=== PATIENT | male | born 1950 | race Caucasian/White ===

== ENCOUNTER 2023-11-26 15:15 | Outpatient (AMB) | payer MEDICARE, SELFPAY ==
--- NOTE | 2023-11-26 15:17 | A.OFFVIS_ITS ---
Intake Visit Reasons: Urinary retention Intake Note: New Patient presents for initial visit for neurogenic bladder and recent hospitalization for urosepsis Urology Medications: tamsulosin, VESIcare, Myrbetriq, and oxybutynin Blood Thinner: aspirin Continuous Improvement Specialist Required: No Accompanied by: Self / Same As Patient Allergies lactose Allergy (Unknown, Verified 11/26/23 16:25) Unknown Ciprofloxacin HCl Allergy (Unknown, Uncoded 11/26/23 16:25) Unknown Medication List - Last Reconciled 11/26/23 by SIMON Mcfarland ascorbic acid (vitamin C) 250 mg PO DAILY aspirin 81 mg PO DAILY atorvastatin 40 mg PO DAILY bupropion HCl XL 300 mg PO DAILY cholecalciferol (vitamin D3) 50 mcg PO DAILY cyanocobalamin (vitamin B-12) 1,000 mcg PO DAILY duloxetine 60 mg PO DAILY finasteride 5 mg PO DAILY 30 days gabapentin mg PO isosorbide mononitrate ER 30 mg PO DAILY loperamide 2 mg PO BID PRN lorazepam 1 mg PO BID magnesium oxide 400 mg PO DAILY omeprazole 20 mg PO DAILY sodium bicarbonate 650 mg PO BID terazosin 5 mg PO BEDTIME 30 days trazodone 200 mg PO BEDTIME HPI Comments Details: Juan Calhoun is a 73-year-old male patient of Dr. Franz. He has a PMH of anxiety, depression, nephrolithiasis, neurogenic bladder, obstructive sleep apnea, TBI, ulcerative colitis, bowel resection status post ileostomy. He presents to the office today as a new patient for urinary retention. In discussion with the patient today he reports having seeked emergency room care at [facility] some time last week however is unsure as to why he went to the emergency room. In assessment of the patient today indwelling Garnica catheter is noted. He does provide discharge paperwork from [facility] that recommends Urology follow-up. In review of patient's chart it appears referral was placed through nephrology as patient has a longstanding history of chronic kidney disease as well as a history of self catheterization many years ago however has since stopped. He is unsure as to why he stopped CIC. He is unsure as to where he followed up previously with Urology. Discussed attempting voiding trial with nursing in 3 weeks. Discussed further workup in the near future with retroperitoneal ultrasound as well as potential in office cystoscopy. Patient presents to the office today with multiple different medication lists. Discussed stopping VESIcare, Myrbetriq, oxybutynin, and Flomax. Discussed starting terazosin 5 mg at bedtime. Education provided on catheter cap. Review of Systems Const Reports as per [facility] Eyes Reports no additional complaints ENT Reports no additional complaints Card Reports as per [facility] Resp Reports no additional complaints GI Reports as per [facility] Reports as per [facility] Musc Reports no additional complaints Neuro Reports as per [facility] Psych Reports as per [facility] Endo Reports no additional complaints Physical Exam Const General: cooperative, comfortable, no acute distress, well developed, alert and awake Nutritional Appearance: overweight Orientation/consciousness: oriented to person Limitations: no limitations HEENT Head: Yes normal to inspection, Yes normocephalic and Yes atraumatic Ears: hearing grossly normal bilaterally Eyes General: appearance normal, both eyes and all related structures Neck Neck: Yes normal visual inspection and Yes trachea midline Chest Chest palpation & inspection: normal inspection of the chest Resp Effort & Inspection: normal respiratory effort and able to speak in complete sentences Cardio Rate: regular rate GI Inspection: Yes normal to inspection General: Yes no CVA tenderness Back/Spine/Pelvis Back: no CVA tenderness Skin General skin exam: no rashes or lesions noted Neuro General: oriented to person Extrem General: Yes normal to inspection Psych Appearance: grossly normal and disheveled Speech and movement: Normal speech and movement present and Clear speech present Affect: normal affect Attitude: cooperative Thought content: Normal thought content present Insight: Poor insight present (Psych) Judgement: Poor judgement present (Psych) Assessment & Plan Assessment & Plan (1) Urinary retention: Code(s): R33.9 - Retention of urine, unspecified Category: Medical (2) Incomplete bladder emptying: Code(s): R33.9 - Retention of urine, unspecified Category: Medical Plan Discussed at length potential causes of incomplete bladder emptying/urinary retention. Stop all urological medications as discussed and as noted above. Start terazosin 5 mg at bedtime. Start finasteride 5 mg as discussed and prescribed Follow-up with nursing in 3 weeks for in office voiding trial. Discussed possible near future in office cystoscopy for further assessment evaluation. Discussed obtaining retroperitoneal ultrasound if voiding trial is successful. Education regarding catheter care was provided as well as education regarding use of catheter cap. Follow-up in office in 3 weeks for voiding trial; or sooner with any issues, concerns, and or questions. Will await voiding trial results and further assess plan of care. Medications: New finasteride 5 mg PO DAILY 30 days 30 tabs 3RF N40.1 - Benign prostatic hyperplasia with lower urinary tract symptoms, R33.9 - Retention of urine, unspecified terazosin 5 mg PO BEDTIME 30 days 30 caps 2RF N40.1 - Benign prostatic hyperplasia with lower urinary tract symptoms, R35.0 - Frequency of micturition Patient Instructions: The patient had an opportunity to ask questions regarding the treatment plan. All questions were answered. Physical exam, labs, and imaging were discussed and reviewed in detail. As well as risks, benefits, and discussion of treatment choices. No major barriers to understanding were identified. The patient expressed understanding and agreement with the above treatment plan. The patient was made aware they should contact our office by phone for worsening of their current condition, the appearance of new symptoms, or with any questions or concerns. Compliance is encouraged with any medications and follow up testing that is ordered. It is a privilege to be allowed the opportunity to participate in? your urological care.? Again, if you have any questions or concerns If you have any questions or concerns please do not hesitate to contact me. The office is [phone]. This note is constructed using voice recognition software. While every effort has been made to ensure accuracy training consultant errors may have been included. Yours sincerely, SIMON Mcfarland Coding Level of Care Code New Pt Level 4 (09483) Diagnoses Urinary retention R33.9 Incomplete bladder emptying R33.9
== END 2023-11-26 16:25 | disposition home or self-care (01) ==
PROVIDERS: PCP Family Medicine; Visit Provider Nurse Practitioner Family
DX: R33.9 Retention of urine, unspecified (principal)
CPT/HCPCS: 99204

== ENCOUNTER → 2023-11-26 15:15 | Outpatient (BNVA) | payer MEDICARE, SELFPAY | PROVIDERS: PCP Family Medicine; Visit Provider Nurse Practitioner Family | DX: N40.1 Benign prostatic hyperplasia with lower urinary tract symptoms (principal); R33.8 Other retention of urine; R35.0 Frequency of micturition | CPT/HCPCS: 99202 ==

== ENCOUNTER → 2023-12-29 09:43 | Outpatient (BNVA) | payer MEDICARE, SELFPAY | PROVIDERS: PCP Family Medicine; Visit Provider Nurse Practitioner Family | DX: R33.9 Retention of urine, unspecified (principal) | CPT/HCPCS: 51700 ==

== ENCOUNTER → 2024-01-21 13:44 | Outpatient (BNVA) | payer MEDICARE, SELFPAY | PROVIDERS: PCP Family Medicine; Visit Provider Urology | DX: R33.9 Retention of urine, unspecified (principal) | CPT/HCPCS: 51798 ==

== ENCOUNTER 2024-02-15 10:46 | Outpatient (AMB) | payer MEDICARE, SELFPAY ==
--- NOTE | 2024-02-15 11:26 | AM.OFFVISNUR ---
Intake Visit Reasons: cysto(Failed VT/retention) Allergies lactose Allergy (Unknown, Verified 11/26/23 16:25) Unknown Ciprofloxacin HCl Allergy (Unknown, Uncoded 11/26/23 16:25) Unknown Office Procedures Cystoscopy Consent Discussed risk and benefit or proposed procedure with the patient. Information consent for procedure given to the patient. Discussed technical aspects, risks, benefits and alternatives in full. Addressed all of the patient's questions and concerns regarding the procedure. The patient demonstrated knowledge and understanding. They wish to proceed with this procedure. Preparation The patient was prepped in the usual manner. A authorization representative was present and in the room. Genitalia was prepped with betadine solution in a sterile manner. Lidocaine Jelly 2% was placed into the urethra and 16Fr flexible Olympus cystoscope was inserted into the meatus after adequate lubrication. [id number] DISPOSABLE SCOPE URO-G FLEXIBLE SCOPE Procedure code (CPT) selection complete Office Meds lidocaine HCl 2 % mucosal jelly in applicator Performing Provider: Fidel Starr MD Performing Location: [facility] Administered by: Loki Bedoya LPN on 02/15/24 11:26 Dose Route Admin Location Dispensed Lot Number Expiration Date [facility] [employer] 10 mL intra-urethral 10 mL nitrofurantoin monohydrate/macrocrystals 100 mg capsule Performing Provider: Fidel Starr MD Performing Location: [facility] Administered by: Loki Bedoya LPN on 02/15/24 11:26 Dose Route Admin Location Dispensed Lot Number Expiration Date [place] Lead Miner [employer]asting 100 mg PO 1 cap naproxen 500 mg tablet Performing Provider: Fidel Starr MD Performing Location: [facility] Administered by: Loki Bedoya LPN on 02/15/24 11:26 Dose Route Admin Location Dispensed Lot Number Expiration Date [facility] Lead [employer] 500 mg PO 1 tab Assessment & Plan Assessment & Plan Orders: Orders AMB Cystoscopy Today R33.9 - Retention of urine, unspecified Medications: New lidocaine HCl 2% 10 mL intra-urethral ONCE 10 mL 0RF R33.9 - Retention of urine, unspecified nitrofurantoin monohyd/m-cryst 100 mg 100 mg PO ONCE 1 cap 0RF R33.9 - Retention of urine, unspecified naproxen 500 mg PO ONCE 1 tab 0RF R33.9 - Retention of urine, unspecified
--- NOTE | 2024-02-15 11:47 | MHC.OFFVIS ---
Intake Visit Reasons: cysto(Failed VT/retention) Allergies lactose Allergy (Unknown, Verified 11/26/23 16:25) Unknown Ciprofloxacin HCl Allergy (Unknown, Uncoded 11/26/23 16:25) Unknown HPI Comments Details: Lj is a pleasant male. He is a patient of Dr. Leonard. He seen for the following urologic conditions - urinary retention Had required catheter for urinary retention [facility] History of prior self catheterization Catheter has been removed at home Has been on terazosin Here for cystoscopy today Open bladder neck 4 month follow-up Remain off anticholinergics Review of Systems Const Denies chills and Denies fever(s) Card Reports no additional complaints and Denies syncope Resp Denies cough GI Denies abdominal pain and Denies heartburn Reports as per HPI and Denies change in libido Neuro Denies syncope Psych Denies change in libido Endo Denies change in libido Physical Exam Const General: cooperative, healthy appearing, comfortable and no acute distress Orientation/consciousness: patient oriented x3 HEENT Face and sinus: Yes normal facial exam Mouth: moist mucous membranes Neck Neck: Yes normal visual inspection, Yes full ROM and Yes trachea midline Chest Chest palpation & inspection: normal inspection of the chest Resp Effort & Inspection: normal respiratory effort, able to speak in complete sentences and no respiratory distress GI Inspection: Yes normal to inspection Back/Spine/Pelvis Cervical Spine: normal cervical lordosis Thoracic/Lumbar Spine: thoracic and lumbar spine normal to inspection Skin General skin exam: no rashes or lesions noted Neuro General: patient oriented x3, gait normal, tone normal and moves all extremities Extrem General: Yes normal to inspection and Yes capillary refill normal Office Procedures Cystoscopy Consent Discussed risk and benefit or proposed procedure with the patient. Information consent for procedure given to the patient. Discussed technical aspects, risks, benefits and alternatives in full. Addressed all of the patient's questions and concerns regarding the procedure. The patient demonstrated knowledge and understanding. They wish to proceed with this procedure. Preparation The patient was prepped in the usual manner. A top stop attacher was present and in the room. Genitalia was prepped with betadine solution in a sterile manner. Lidocaine Jelly 2% was placed into the urethra and 16Fr flexible Olympus cystoscope was inserted into the meatus after adequate lubrication. Procedure Cystoscopy performed using a disposable Urovue digital 16 [place] cystoscope. Meatus circumcised Urethra anterior and posterior urethra normal Prostatic Urethra open bladder neck Bladder examination with retroflexion of cystoscope Bladder Orifices normal shape and position Bladder Capacity median Trabeculations - Cellule Formation - Diverticulum Formation - Mucosal Erythema - Bladder Tumor - [id number] DISPOSABLE SCOPE URO-G FLEXIBLE SCOPE Procedure code (CPT) selection complete Office Meds lidocaine HCl 2 % mucosal jelly in applicator Performing Provider: Fidel Starr MD Performing Location: [facility] Administered by: Loki Bedoya LPN on 02/15/24 11:26 Dose Route Admin Location Dispensed Lot Number Expiration Date NDC Ad Operations Specialist 10 mL intra-urethral 10 mL nitrofurantoin monohydrate/macrocrystals 100 mg capsule Performing Provider: Fidel Starr MD Performing Location: [facility] Administered by: Loki Bedoya LPN on 02/15/24 11:26 Dose Route Admin Location Dispensed Lot Number Expiration Date ND Ad Operations Specialist 100 mg PO 1 cap naproxen 500 mg tablet Performing Provider: Fidel Starr MD Performing Location: [facility] Administered by: Loki Bedoya LPN on 02/15/24 11:26 Dose Route Admin Location Dispensed Lot Number Expiration Date ND Ad Operations Specialist 500 mg PO 1 tab Assessment & Plan Assessment & Plan (1) Incomplete bladder emptying: Code(s): R33.9 - Retention of urine, unspecified Category: Medical (2) Urinary retention: Code(s): R33.9 - Retention of urine, unspecified Category: Medical Plan Four month follow-up nurse-practitioner Orders: Orders AMB Cystoscopy 02/15/24 R33.9 - Retention of urine, unspecified Medications: New ascorbic acid (vitamin C) 1 g PO DAILY 90 tabs 1RF 90 days R33.9 - Retention of urine, unspecified, N39.0 - Urinary tract infection, site not specified methenamine hippurate 1 g PO DAILY 90 tabs 1RF 90 days R33.9 - Retention of urine, unspecified, N39.0 - Urinary tract infection, site not specified Patient Instructions: Imaging studies, laboratory and physical exam results were discussed and reviewed in detail. No major barriers to patient understanding were identified. An opportunity to ask questions regarding the treatment plan was provided. All questions were answered. The patient expressed understanding and agreement with the above treatment plan. The patient is aware they should contact our office by phone for worsening of their current condition or the appearance of new urologic symptoms. Compliance is encouraged with any medications and followup testing that is ordered. It is a privilege to participate in the urologic care of your patient. If you have any questions or concerns regarding treatment for the above conditions, or other urologic issues, please do not hesitate to contact me. The office telephone contact is [phone]. This note is constructed using voice recognition software. While every effort has been made to ensure accuracy electrical discharge machine operator errors may have been included. Yours sincerely, Dr Fidel Starr MD, [facility] - Urology Providers of Expert, Compassionate Care for the Genitourinary System Coding Level of Care Code Est Pt Level 3 (48940) Diagnoses Incomplete bladder emptying R33.9 Urinary retention R33.9 CPT Codes Cystoscopy - CPT: 78430-[id number] ([id number])
== END 2024-02-15 12:01 | disposition home or self-care (01) ==
LOC: HO.HUSH 10:46
PROVIDERS: PCP Family Medicine; Visit Provider Urology
DX: R33.9 Retention of urine, unspecified (principal)
CPT/HCPCS: 52000; 99213

== ENCOUNTER → 2024-02-15 10:46 | Outpatient (BNVA) | payer MEDICARE, SELFPAY | PROVIDERS: PCP Family Medicine; Visit Provider Urology | DX: R33.9 Retention of urine, unspecified (principal); Z79.899 Other long term (current) drug therapy | CPT/HCPCS: 52000; 99212 ==

== ENCOUNTER 2024-07-18 12:01 | Outpatient (AMB) | payer MEDICARE, SELFPAY ==
--- NOTE | 2024-07-18 12:02 | A.OFFVIS_ITS ---
Intake Visit Reasons: 4m follow up Intake Note: Patient presents today for tele visit follow up on: neurogenic bladder , retention, and incomplete bladder emptying Urology Medications: terazosin, finasteride, and methenamine Blood Thinner: aspirin Amalgamator Required: No Accompanied by: Self / Same As Patient Allergies lactose Allergy (Unknown, Verified 07/20/24 22:17) Unknown Ciprofloxacin HCl Allergy (Unknown, Uncoded 07/20/24 22:17) Unknown Medication List - Last Reconciled 07/20/24 by SIMON Mcfarland ascorbic acid (vitamin C) 1 g PO DAILY 90 days aspirin 81 mg PO DAILY atorvastatin 40 mg PO DAILY bupropion HCl XL 300 mg PO DAILY cholecalciferol (vitamin D3) 50 mcg PO DAILY cyanocobalamin (vitamin B-12) 1,000 mcg PO DAILY diaper,brief,adult,disposable (Select Disposable Briefs) As directed; 4 times daily duloxetine 60 mg PO DAILY finasteride 5 mg PO DAILY 30 days gabapentin mg PO isosorbide mononitrate ER 30 mg PO DAILY loperamide 2 mg PO BID PRN lorazepam 1 mg PO BID magnesium oxide 400 mg PO DAILY methenamine hippurate 1 g PO DAILY 90 days omeprazole 20 mg PO DAILY sodium bicarbonate 650 mg PO BID terazosin 5 mg PO BEDTIME 30 days trazodone 200 mg PO BEDTIME HPI Comments Details: Juan Calhoun is a 73-year-old male patient of Dr. Franz. He has a PMH of anxiety, depression, nephrolithiasis, neurogenic bladder, obstructive sleep apnea, TBI, ulcerative colitis, bowel resection status post ileostomy. He is being followed up on today via telehealth. Of note, patient was seen approximately 5 months ago at which time he underwent an in office cystoscopy with Dr. Starr that noted open bladder neck. Patient with a previous history of urinary retention requiring catheter placement. He also has a previous history of CIC for incomplete bladder emptying/urinary retention. In discussion with the patient today he reports foul-smelling urine and feels he continues with urinary hesitancy. We discussed obtaining urine for further assessment evaluation. He reports compliance with finasteride, terazosin, methenamine, and vitamin-C as prescribed. Patient discusses his longstanding history of urological issues. He denies urinary urgency, urinary frequency, incontinence, nocturia, hematuria, dysuria, changes to urinary stream, flank pain, fever, and or chills. He has inquired antibiotic therapy as he believes he has a urinary tract infection. We discussed importance of obtaining urine for further assessment evaluation. We discussed assessment in office to further assess PVR however patient discusses his issues with transportation. He otherwise offers no other issues or concerns at this time. Review of Systems Const Reports as per [facility] Eyes Reports no additional complaints ENT Reports no additional complaints Card Reports as per [facility] Resp Reports no additional complaints GI Reports as per [facility] Reports as per HPI Musc Reports no additional complaints Neuro Reports as per [facility] Psych Reports as per [facility] Endo Reports no additional complaints Physical Exam Const General: cooperative Resp Effort & Inspection: able to speak in complete sentences Psych Speech and movement: Clear speech present Attitude: cooperative Insight: Fair insight present (Psych) Judgement: Fair judgement present (Psych) Telehealth Telehealth Telehealth Platform: Telephone Location of provider rendering services: practice address Location of patient: address on file Patient Identification confirmed using: Name, : Yes Telehealth method: voice only Patient verbally consented to treatment: Yes Patient verbally consented to billing insurance company: Yes Patient informed of any privacy concerns related to visit: Yes Minutes spent on Phone/Video with Pt.: 15 Assessment & Plan Assessment & Plan (1) Urinary retention: Code(s): R33.9 - Retention of urine, unspecified Category: Medical (2) Incomplete bladder emptying: Code(s): R33.9 - Retention of urine, unspecified Category: Medical Plan We discussed obtaining urine for further assessment evaluation; orders placed for urinalysis and culture; will await results for potential treatment. We discussed potential causes of recurrent urinary tract infections. We discussed importance of follow-up in office to further assess PVR as patient with a history of urinary retention/incomplete bladder emptying. Continue finasteride, terazosin, methenamine, and vitamin-C as discussed and prescribed. Discussed obtaining retroperitoneal ultrasound as planned during last office visit however never obtained. Follow-up in 1-2 months with imaging and PVR; or sooner with any issues, concerns, and or questions. Orders: Orders UA CC w/rflx Micro + Cult Today N39.0 - Urinary tract infection, site not specified US retroperitoneal comp 07/18/24 R33.9 - Retention of urine, unspecified Patient Instructions: The patient had an opportunity to ask questions regarding the treatment plan. All questions were answered. Physical exam, labs, and imaging were discussed and reviewed in detail. As well as risks, benefits, and discussion of treatment choices. No major barriers to understanding were identified. The patient expressed understanding and agreement with the above treatment plan. The patient was made aware they should contact our office by phone for worsening of their current condition, the appearance of new symptoms, or with any questions or concerns. Compliance is encouraged with any medications and follow up testing that is ordered. It is a privilege to be allowed the opportunity to participate in? your urological care.? Again, if you have any questions or concerns If you have any questions or concerns please do not hesitate to contact me. The office is [phone]. This note is constructed using voice recognition software. While every effort has been made to ensure accuracy hydrochloric acid operator errors may have been included. Yours sincerely, SIMON Mcfarland Coding Level of Care Code Tele Est Pt Level 3 (49339) Complex EM visit Add On G2211 Diagnoses Urinary retention R33.9 Incomplete bladder emptying R33.9
== END 2024-07-18 12:54 | disposition home or self-care (01) ==
LOC: HO.HUSH 12:01
PROVIDERS: PCP Family Medicine; Visit Provider Nurse Practitioner Family
DX: R33.9 Retention of urine, unspecified (principal)
CPT/HCPCS: 99442

== ENCOUNTER 2024-07-21 14:45 | Outpatient (REF) | payer MEDICARE, SELFPAY ==
[2024-07-21 14:57] LABS: Appearance Urine Turbid; Color Urine Yellow; Glucose Urine UA Negative (Negative); Leukocyte Esterase Urine Large (3+) (Negative); Nitrite Urine Negative (Negative); Specific Gravity - Urine 1.015 (1.005-1.025); UMIC TRIGGER UACC YES; Urine Blood Trace (Negative); Urine Ketones Negative (Negative); Urine Protein 30 (1+) mg/dL (Neg-Trace)
[2024-07-21 15:13] LABS: Bacteria Urine None Seen (None Seen); UACC Culture Trigger YES; WBC Urine >50 /HPF (0-5)
== END 2024-07-21 14:46 | disposition home or self-care (01) ==
LOC: HO.LNP 14:45
PROVIDERS: Visit Provider Nurse Practitioner Family
DX: N39.0 Urinary tract infection, site not specified (principal)
CPT/HCPCS: 81001; 87086

== ENCOUNTER 2024-08-21 12:59 | Outpatient (REF) | payer MEDICARE, SELFPAY ==
--- NOTE | ~2024-08-21 | US_ITS ---
CLINICAL HISTORY: R33.9 - Retention of urine, unspecified US kidneys and bladder Comparison: None Findings: Right kidney 9.0 cm length. Mild hydronephrosis noted. Sub cm upper pole cyst noted. 3.5 x 3.6 cm midpole cyst. Left kidney 9.7 cm length. No significant focal abnormality. Bilateral increased echogenicity noted. This likely indicates chronic disease. Bladder wall is trabeculated. Debris noted in dependent portion of the bladder. This can be seen with infection or hemorrhage. Prevoid volume 232 mL. Post void volume 146 mL. Bilateral ureteral jets visualized. Impression: Postvoid residual volume 146 mL Mild right hydronephrosis Increased renal echogenicity consistent with chronic disease Ultrasound prostate Prostate heterogeneous but normal in size. Prostate 3.3 x 3.9 x 3.2 cm. Prostate volume: 21.6 mL. No focal prostate abnormality. Impression: No significant abnormality This document has been electronically signed by: Ashu Saravia MD on 08/21/2024 19:13:56
--- OUTSIDE RECORDS SUMMARY | 2024-08-21 17:37 | XMS_ITS | Clinical Summary ---
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 K/mcL LAB HEMETOLOGY METHOD 08/08/2024 2:22 AM [facility] Eosinophils Absolute 0.04 0.00 - 0.50 K/mcL LAB HEMETOLOGY METHOD 08/08/2024 2:22 AM EST [facility] Basophils Absolute 0.04 0.00 - 0.20 K/mcL LAB HEMETOLOGY METHOD 08/08/2024 2:22 AM EST [facility] Immature Granulocytes Absolute 0.09(H) 0.00 - 0.03 K/mcL LAB HEMETOLOGY METHOD 08/08/2024 2:22 AM EST [facility] Blood Venous blood specimen / Unknown Venipuncture / Unknown 08/08/2024 1:25 AM EST 08/08/2024 2:17 AM EST Jamie Crawford MD LAB BLOOD ORDERABLES Performing Organization Address City[facility]/ZIP Co de Phone Number [facility] [address] [place] [address], * Magnesium (08/08/2024 1:25 AM EST) Pathologist [facility] Magnesium 2.2 1.9 - 2.6 mg/dL LAB CHEMISTRY METHOD 08/08/2024 2:53 AM EST [facility] Comment:Hemolysis present Blood Venous blood specimen / Unknown Venipuncture / Unknown 08/08/2024 1:25 AM EST 08/08/2024 2:17 AM EST Jamie Crawford MD LAB BLOOD ORDERABLES Performing Organization Address [facility]/ZIP Co de Phone Number [facility] [address] [place] [address], [place] [phone] * Cardiac Enzymes - CPK (08/08/2024 1:25 AM EST) Pathologist [facility] Total CK 127 22 - 269 unit/L LAB CHEMISTRY METHOD 08/08/2024 2:53 AM EST [facility] Comment:Hemolysis present Blood Venous blood specimen / Unknown Venipuncture / Unknown 08/08/2024 1:25 AM EST 08/08/2024 2:17 AM EST [facility] LAB BLOOD ORDERABLES [facility] [address] [place] [address], * ECG-Annotated (08/08/2024) Provider Onbase MD ECG ORDERABLES from Last 3 Months Advance Directives * No CPR/Do Not Intubate (Latest Code Status on File) Date Activated Date Inactivated Comments 08/08/2024 4:38 PM 08/11/2024 7:[address] atus was ascertained in the following way: Code status discussion: discussion with patient To update the patient's code status, place a code status order. Do not modify or discontinue any currently active code status orders. * Full Code - Default Date Activated Date Inactivated Comments 08/08/2024 12:51 PM 08/08/2024 4:38 PM This is ord er is used when code status has not been discussed with the patient, or code status is otherwise unknown/unconfirmed To update the patient's code status, place a code status order. Do not modify or discontinue any currently active code status orders. Care Teams Cdc Associate Relationship Specialty Start Date End Date Physician, No Pcp PCP - General 08/08/24
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
--- OUTSIDE RECORDS SUMMARY | 2024-08-21 17:37 | XMS_ITS | Encounter Summary ---
Author Organization [facility] Address [address] [place] [address] Encounter Details Date Type Department Care Team Description 2024-06-08 Telephone [facility] [address] [place] [address] Roula Crystal Medication Reconciliation was successfully completed by the [facility]. ASSESSMENT No Information TREATMENT PLAN No Information
--- OUTSIDE RECORDS SUMMARY | 2024-08-21 17:38 | XMS_ITS | Encounter Summary ---
Author Organization [facility] Address [address] [place] [address] Care Team Providers Care Construction Director Name Role Phone Physician, No Pcp Primary Care Provider Unavaila ble Reason for Visit * Reason Comments Extremity Weakness Pt coming from home via ems. Pt attempted to get out of bag to change colostomy bag. When getting out leg buckled and gave out this happened around 1930, pt on the ground until 0 after he crawled to the bathroom and was able to pull bathroom alarm. Denies LOC, head strike, thinners. * Auth/Cert Specialty Diagnoses / Procedures Referred By Pascual boone Referred To Contact Diagnoses Hydronephrosis Procedures MD HOSPITAL IP/OBS CARE INITIAL MODERATE LEVEL PER DAY Christel Ivey MD [address] [place] [address] [facility] Emergency [address] [place] [address] Referral ID Status Reason Start Date Expiration Date Visits Re quested Visits Authorized [id number] 1 1 Encounter Details Date Type Department Care Team (Late st Contact Info) Description 08/08/2024 12:54 AM EST - 08/11/2024 5:59 PM EST Hospital Encounter [facility] Urology Unit [address] [place] [address] Alex Rose, DO [address] [place] [address] Christel Ivey MD [address] [place] [address] Jessie Butler MD [address] [place] [address] Weakness of both lower extremities (Primary Dx); Acute cystitis without hematuria; Hydronephrosis, unspecified hydronephrosis type; Leukocytosis, unspecified type; Metabolic acidosis; Acute renal failure superimposed on chronic kidney disease, unspecified acute renal failure type, unspecified CKD stage (CMS/HCC); Hydronephrosis Discharge Disposition: Home or Self Care Social History Tobacco Use Types Packs/Day Years [...] file Not on file Not on file documented as of this encounter Last Filed Vital Signs Vital Sign Reading [...] Mass Index 28.7 08/08/2024 12:58 AM EST documented in this encounter Functional Status Functional Status Response Date of Assess ment Are you deaf or do you have serious difficulty h earing? No 08/08/2024 Are you blind or do you have serious difficulty seeing, even when wearing glasses? No 08/08/2024 Do you have serious difficul ty walking or climbing stairs? No 08/08/2024 Do you have serious difficulty dressing or bathi ng? No 08/08/2024 Because of a physical, menta l, or emotional condition, do you have serious difficulty doing errands alone such as visiting the doctor? No 08/08/2024 Cognitive Status Response Date of Assessm ent Because of a physical, menta l, or emotional condition, do you have serious difficulty concentrating, remembering, or making decisions? (5 years old or older) No 08/08/2024 documented as of this encounter Discharge Summaries * Jessie Butler MD - 08/11/2024 12:19 PM EST Images from the original note were not included. HOSPITAL MEDICINE DISCHARGE SUMMARY Patient Information Brina Whyte : 1950 [73 y.o.] Admitting Provider Christel Ivey MD Discharge Provider Jessie Butler MD Primary Care Physician No Pcp Physician Admission Date 08/08/2024 Discharge Date 08/11/2024 Summary of Hospital Problems Primary Discharge Diagnosis: ARIS Secondary Discharge Diagnosis: CKD Discharge Disposition Discharge home with health services Code Status at Discharge: No CPR/Do Not Intubate Hospital Course Summary Presenting Problem/History of Present Illness Hydronephrosis [N13.30] Metabolic acidosis [E87.20] Acute cystitis without hematuria [N30.00] Weakness of both lower extremities [R29.898] Hydronephrosis, unspecified hydronephrosis type [N13.30] Leukocytosis, unspecified type [D72.829] Acute renal failure superimposed on chronic kidney disease, unspecified acute renal failure type, unspecified CKD stage (CMS/[facility]) [N17.9, N18.9] Chief Complaint Patient presents with ??? Extremity Weakness Pt coming from home via ems. Pt attempted to get out of bag to change colostomy bag. When getting out leg buckled and gave out this happened around 1930, pt on the ground until 2329 after he crawled to the bathroom and was able to pull bathroom alarm. Denies LOC, head strike, thinners. HPI 73-year-old male with a history of CAD, CKD, ARASELI, ulcerative colitis and further history as noted below presented to the emergency room with generalized weakness. He reported a fall stating he was unable to get himself up off the ground. Noted over the last couple years his legs give out on him from time to time. He noted ambulating at baseline with a walker. He denied any head injury and/or lossof consciousness. CBC revealed a white blood cell count of 19.6. BMP revealed a chloride of 111. CO2 of 16. BUN 34. Creatinine 3.70. GFR 17. Urinalysis revealed large leukocyte esterase, 928 WBC, 5.8 RBC, CT abdomen and pelvis revealed no acute traumatic abnormalities. Moderate to severe right hydroureteronephrosis without evidence of obstructing calculus or mass. Right renal cyst. Status post total colectomy. Area of scarring related to the region of the rectosigmoid and presacral region. There is central low- attenuation soft tissue and a small gas pocket. This may contain complex fluid. An abscess is not excluded. Chronic adjacent bony changes. Consider obtaining a contrast examination. Mild bladder wall thickening and trabeculation may indicate evidence of chronic outlet obstruction. Right lower quadrant ileostomy??? Please see full report Chest x-ray revealed no acute findings??? Please see full report Hospital Course Brina Whyte is a 73 y.o. male who has PMH of CAD, CKD, ARASELI, ulcerative colitis, ileostomy, neurogenic bladder for which he straight catheterizes, depression/anxiety. Patient presented to ED withcomplaints of generalized weakness for a few days. Patient suffered fall on the day of admission and was unable to get himself off the ground. On arrival here WBC of 19.6, creatinine 3.7, urinalysis showed large leukocyte Estrace and WBC. CT abdomen pelvis showed no acute abnormality, showed moderate-severe right hydronephrosis without evidence of obstructing calculus or mass, right renal cyst, s/p total colectomy, area of scarring related to region of rectosigmoid and presacral region, central low-attenuation soft tissue and small gas pocket which may contain complex fluid abscess not excluded; mild bladder wall thickening and trabeculation and right lower quadrant ileostomy. 1. Generalized weakness and fall Likely secondary to UTI plus or minus ARIS. SNF placement recommended initially by physical therapist. However, patient improved and PT reevaluation was done and patient cleared for discharge home. 2. ARIS on CKD stage IV Creatinine peaked at 3.87 and has improved to 3.18. As per previous php architect note baseline creatinine of 3. Business Reporter was consulted. IV fluid given, creatinine improved to 3.16 at discharge. 3. UTI Patient has history of recurrent UTI, pseudomonal UTIs in the past. Urine culture growing less than10,000 CFU gram-positive cocci, insignificant count, no further workup. 4. Right hydronephrosis Patient is followed by Dr. Jasso ([facility] urologist) who I attempted to call but wasnot successful. However, I reviewed previous records from [facility] and patient has history of hydronephrosis. Case discussed with urologist (consult placed to urology group of [facility]) and their opinion was hydronephrosis was chronic and did not require intervention currently. 5. Bacteremia Blood culture x 1 grew corynebacterium species, likely contaminant. Patient was covered with IV cefepime and vancomycin. Repeat blood cultures were negative. Patient was not discharged with any further antibiotic. 6. Abdominal wall excoriation Patient reportedly had some increased warmth and edema surrounding the ostomy. I do not note any cellulitic changes. According to wound nurse patient has skin breakdown around the ostomy site. 7. Anxiety and depression Continue with bupropion, duloxetine, trazodone and lorazepam. Operative Procedures Performed: Consults: nephrology LABS/IMAGING XR Chest 1 View Result Date: 08/08/2024 AP view of the chest, 08/08/2024. HISTORY: weakness. COMPARISON: None. FINDINGS: Lungs and pleural spaces are clear. Cardiomediastinal contours are normal. Orthopedic anchor in the right humeral head.Degenerative changes of the spine and shoulders. No acute findings. -------- FINAL REPORT -------- Dictated By: Sam Devi Dictated Date: 08/08/2024 08:03 ET Assigned Physician: Sam Devi Reviewed and Electronically Signed By: Sam Devi Signed Date: 08/08/2024 08:04 ET Workstation ID: [id number] Transcribed By: Self Edit Transcribed Date: 08/08/2024 08:[address] Abdomen Pelvis wo Contrast Result Date: 08/08/2024 CT abdomen and pelvis without contrast Comparison: None Findings: No consolidation or effusion. Thegallbladder is contracted and calcified. There may be small gallstones. There is a 3.8 cm right renal cyst. There is moderate right hydroureteronephrosis. An obstructing calculus or mass is not seen.The right ureter is dilated through the level of the ureterovesicular junction. The left kidney andthe rest of the solid organs are unremarkable. The patient is status post total colectomy. A Escobar's pouch is present. There is a right lower quadrant ileostomy. There are postoperative changes at the rectosigmoid with significant presacral scarring. Findings appear chronic as there are chronic sum[place] changes along the anterior aspect of the sacrum. The urinary bladder is trabeculated with mild urinary bladder wall thickening. There is central low attenuation and a small gas pocket within this area of scarring. There may be complex fluid here. No acute fracture. 1. No acute traumatic abnormalities. 2. Moderate [...] by: Lobo Bailey MD on 08/08/2024 05:25:28 No results found for: INR , PROTIME Lab Results Component Value Date NA 141 08/11/2024 K 3.8 08/11/2024 CL 116 (H) 08/11/2024 CO2 20 (L) 08/11/2024 GLUCOSE 100 08/11/2024 BUN 19 08/11/2024 CREATININE 3.16 (H) 08/11/2024 CALCIUM 8.6 08/11/2024 MG 2.2 08/08/2024 CKTOTAL 127 08/08/2024 EGFR 20 (L) 08/11/2024 Lab Results Component Value Date WBC 11.8 (H) 08/10/2024 HGB 10.8 (L) 08/10/2024 HCT 34.0 (L) 08/10/2024 MCV 92.9 08/10/2024 PLT 202 08/10/2024 Discharge Medications Your medication list CONTINUE taking these medications Instructions Last Dose Given Next Dose Due ascorbic acid 1,000 mg tablet Commonly known as: VITAMIN C Take 1 tablet (1,000 mg total) by mouth 1 (one) time each day. aspirin 81 mg EC tablet Take 1 tablet (81 mg total) by mouth daily. atorvastatin 40 mg tablet Commonly known as: LIPITOR Take 1 tablet (40 mg total) by mouth 1 (one) time each day. buPROPion XL 150 mg 24 hr tablet Commonly known as: WELLBUTRIN XL Take 3 tablets (450 mg total) by mouth 1 (one) time each day. cholecalciferol 50 mcg (2,000 unit) capsule Commonly known as: VITAMIN D-3 Take 1 capsule (2,000 Units total) by mouth 1 (one) time each day. DULoxetine [address] capsule Commonly known as: CYMBALTA Take 1 capsule (60 mg total) by mouth daily. finasteride 5 mg tablet Commonly known as: PROSCAR Take 1 tablet (5 mg total) by mouth 1 (one) time each day. Do not crush, chew, or split. gabapentin 100 mg capsule Commonly known as: NEURONTIN Take 2 capsules (200 mg total) by mouth at bedtime. isosorbide mononitrate 60 mg 24 hr tablet Commonly known as: IMDUR Take 1 tablet (60 mg total) by mouth 1 (one) time each day. LORazepam 1 mg tablet Commonly known as: ATIVAN Take 1 tablet (1 mg total) by mouth 2 (two) times a day if needed for anxiety. methenamine hippurate 1 gram tablet Commonly known as: HIPREX Take 1 tablet (1 g total) by mouth 1 (one) time each day. omeprazole [address] capsule Commonly known as: PriLOSEC Take 1 capsule (20 mg total) by mouth daily. sodium bicarbonate 650 mg tablet Take 1 tablet (650 mg total) by mouth 2 (two) times a day. traZODone 100 mg tablet Commonly known as: DESYREL Take 2 tablets (200 mg total) by mouth at bedtime. Follow-Up Instructions and Recommendations General Surgery - [address] [address] Schedule an appointment as soon as possible for a visit [facility]- please call for appointment for any suues with ostomy or supply issues No discharge procedures on file. There are no outpatient Patient Instructions on file for this admission. Outpatient Follow-Up No future appointments. Test Results Pending at Discharge Pending Labs Order Current Status Blood Culture, Peripheral Draw #2 Preliminary result Culture blood Preliminary result Culture blood Preliminary result Physical Exam at time of Discharge Vitals Visit Vitals BP (!) 152/84 (BP Location: Right arm, Patient Position: Lying) Pulse 79 Temp 36.4 ??C (97.5 ??F) Resp 16 Temp (24hrs), Av.4 ??C (97.6 ??F), Min:36.3 ??C (97.3 ??F), Max:36.6 ??C (97.9 ??F) Body mass index is 28.7 kg/m??. No results found for: PTWT , PTHT Physical Exam Vitals and nursing note reviewed. Constitutional: Appearance: Normal appearance. He is normal weight. HENT: Head: Normocephalic and atraumatic. Nose: Nose normal. Mouth/Throat: Mouth: Mucous membranes are moist. Eyes: Extraocular Movements: Extraocular movements intact. Pupils: Pupils are equal, round, and reactive to light. Cardiovascular: Rate and Rhythm: Normal rate and regular rhythm. Pulmonary: Effort: Pulmonary effort is normal. Breath sounds: Normal breath sounds. Abdominal: Palpations: Abdomen is soft. There is no mass. Tenderness: There is no abdominal tenderness. There is no guarding or rebound. Comments: Functional ileostomy Musculoskeletal: General: No swelling or deformity. Skin: General: Skin is warm and dry. Neurological: General: No focal deficit present. Mental Status: He is alert. Mental status is at baseline. Total Time Spent on Discharge Process: Greater than 30 minutes Jessie Butler MD 08/11/2024 12:25 PM EST documented in this encounter Medications at Time of Discharge Medication Sig Dispensed Refills Start Date End Date ascorbic acid (VITAMIN C) 1,000 mg tablet Take 1 tablet (1,000 mg total) by mouth 1 (one) time each day. 06/07/2024 aspirin 81 mg EC tablet Take 1 tablet (81 mg total) by mouth daily. 11/03/2023 atorvastatin (LIPITOR) 40 mg tablet Take 1 tablet (40 mg total) by mouth 1 (one) time each day. 03/31/2012 DULoxetine (CYMBALTA) [address] capsule Take 1 capsule (60 mg total) by mouth daily. 11/06/2022 isosorbide mononitrate (IMDUR) 60 mg 24 hr tablet Take 1 tablet (60 mg total) by mouth 1 (one) time each day. 05/15/2021 omeprazole (PriLOSEC) [address] capsule Take 1 capsule (20 mg total) by mouth daily. 01/16/2024 buPROPion XL (WELLBUTRIN XL) 150 mg 24 hr tablet Take 3 tablets (450 mg total) by mouth 1 (one) time each day. cholecalciferol (VITAMIN D-3) 50 mcg (2,000 unit) capsule Take 1 capsule (2,000 Units total) by mouth 1 (one) time each day. finasteride (PROSCAR) 5 mg tablet Take 1 tablet (5 mg total) by mouth 1 (one) time each day. Do not crush, chew, or split. gabapentin (NEURONTIN) 100 mg capsule Take 2 capsules (200 mg total) by mouth at bedtime. LORazepam (ATIVAN) 1 mg tablet Take 1 tablet (1 mg total) by mouth 2 (two) times a day if needed for anxiety. methenamine hippurate (HIPREX) 1 gram tablet Take 1 tablet (1 g total) by mouth 1 (one) time each day. sodium bicarbonate 650 mg tablet Take 1 tablet (650 mg total) by mouth 2 (two) times a day. traZODone (DESYREL) 100 mg tablet Take 2 tablets (200 mg total) by mouth at bedtime. documented as of this encounter Discharge Disposition Disposition Code Departure Means Destination Home or Self Care documented in this encounter Progress Notes * Jessie Butler MD - 08/11/2024 5:59 PM EST [facility] Provider Response Note PATIENT: BRINA WHYTE : 1950 ADMIT DATE: 08/08/2024 12:50 PM DISCH DATE: 08/11/2024 5:59 PM RESPONDING PROVIDER #: [id number] PROVIDER RESPONSE TEXT: The patient has an associated condition of tubular necrosis. QUERY TEXT: Acute Kidney Failure is documented in the medical record. Please specify the associated condition such as: Consult 08/10/24 Dr. Loera Acute kidney injury as patient likely secondary severe prerenal state. Patient could also have a competent of renal hypoperfusion/acute tubular injury in the setting ofUTI/sepsis. Urine sodium is low with low fractional excretion of sodium pointing towards prerenal state Agree with continuation of IV fluids with LR Avoid all nephrotoxins Right hydronephrosis CKD stage IV at baseline with a baseline creatinine around 2.5-3.0 UA 08/08/24 0444 Hyaline Casts, Urine (/LPF) 8.8H 08/08/24 1654 Sodium, Ur (mmol/L) 25 D/C Summary Dr. Butler 08/11/24 Metabolic acidosis Thank you for your attention to this matter. Lanny Magana RN, c [phone] The patient's clinical indicators include: Options provided: -- Tubular Necrosis -- Other - I will add my own diagnosis -- Disagree - Not applicable / Not valid Query created by: Lanny Magana on 08/11/2024 5:19 PM Electronically signed by: JESSIE BUTLER MD 08/20/2024 7:18 AM * Naty Artis RN - 08/11/2024 4:42 PM EST Pt medically cleared for discharge. PT recommending home services. Wide referrals placed. Calls also made. Unable to secure [facility]NA at this time. RN aware. Script for outpatient PT may need to be given. * Jennifer Austin - 08/11/2024 1:07 PM EST [facility] Physical Therapy Treatment PT Discharge Recommendations: home PT with walker Staff Recommendations for safe patient handling: Marilyn/distant supervision with transfers, supervision with gait Precautions Medical Precautions: Fall Risk RUE Weight Bearing Status: Full LUE Weight Bearing Status: Full RLE Weight Bearing Status: Full LLE Weight Bearing Status: Full History of Present Illness: Patient is a 73 y.o. male admitted to [facility] on 08/08/2024with: Patient Active Problem List Diagnosis Hydronephrosis Weakness of both lower extremities Acute renal failure superimposed on chronic kidney disease ([facility]) Fall prevention education provided including use of call light in hospital, use of appropriate assistive device, safe mobility techniques, and safety measures at home. Continue PT as per POC. Subjective Pt reports he wants to go home. He feels safe but wants to see a doctor to clear him to go home. Objective 08/11/24 1000 PT Last Visit PT Received On 08/11/24 PT Time Calculation PT Start Time 1000 PT Stop Time 1030 PT Time Calculation (min) 30 min Precautions Medical Precautions Fall Risk RUE Weight Bearing Status Full LUE Weight Bearing Status Full RLE Weight Bearing Status Full LLE Weight Bearing Status Full Pain Assessment Pain Assessment No/denies pain Cognition Overall Cognitive Status WFL Arousal/Alertness Appropriate responses to stimuli Orientation Level Oriented X4 Activity Tolerance Endurance Tolerates 20 - 30 min activity with multiple rests Static Sitting Balance Static Sitting-Level of Assistance Distant supervision Dynamic Sitting Balance Dynamic Sitting-Level of Assistance Distant supervision Static Standing Balance Static Standing-Level of Assistance Supervision Dynamic Standing Balance Dynamic Standing-Level of Assistance Supervision Bed Mobility Rolling Right Assistance Modified independent Rolling Left Assistance Modified independent Sitting to Lying Assistance Supervision Lying to Sitting Assistance Supervision Transfers Sit to Stand Assistance Distant supervision Chair/Bed to Chair/Bed Transfer Assistance Distant supervision Ambulation Walking Assistance Close supervision Device Rolling walker Distance Ambulated (ft) 100 (25+75) Procedures Procedures Gait Training Gait Training Gait Training Time Entry 30 Gait Training Activity 1 Pt got up from bed with supervision and ambulated 25 ft with walker with CG. Took 2 min break in chair and got up from chair with supervision and ambulated 75 ft in bland withwalker with supervision. Pt able to reposition himself in chair no assistance. PT Assessment PT Assessment Results Decreased endurance;Impaired balance Prognosis Good Evaluation/Treatment Tolerance Patient tolerated treatment well Medical Staff Made Aware Yes Plan PT Plan Skilled PT (if patient needs continued treatment at hospital) PT Frequency 2-5 days per week PT Duration of Sessions 15-30 min per session PT Discharge Recommendations Home PT Equipment Recommended walker PT - Evaluation Status Complete PT - OK to Discharge Yes Procedure/Treatment: Procedures Procedures: Gait Training Gait Training Gait Training Time Entry: 30 Gait Training Activity 1: Pt got up from bed with supervision and ambulated 25 ft with walker with CG. Took 2 min break in chair and got up from chair with supervision and ambulated 75 ft in bland with walker with supervision. Pt able to reposition himself in chair no assistance. Patient left sitting up in chair. RN notified of pt. status, location, response to treatment, and therapy recommendations. Physical Therapy Assessment/Plan PT Assessment PT Assessment Results: Decreased endurance, Impaired balance Prognosis: Good Evaluation/Treatment Tolerance: pt tolerated treatment well Medical Staff Made Aware: Yes Plan PT Plan: Skilled PT PT Frequency: 2-5 days per week PT Duration of Sessions: 15-30 min per session PT Treatments per day: as needed if pt stays in hospital PT Discharge Recommendations: home PT PT - Evaluation Status: Complete Physical Therapy Goals/Education Encounter Problems Encounter Problems (Active) Template: Physical Therapy Problem: PT Jail Goals Dates: Start: 08/08/24 Encounter Problems (Resolved) Template: Physical Therapy Problem: PT Short Term Goals Dates: Start: 08/08/24 Resolved: 08/11/24 Goal: Pt will ambulate 50 ft with walker (Resolved) Dates: Start: 08/08/24 Expected End: 08/15/24 Resolved: 08/11/24 Outcomes Date/Time User Outcome 08/11/24 1306 Jennifer Austin Completed Goal: Pt will transfer from bed to chair with supervision (Resolved) Dates: Start: 08/08/24 Expected End: 08/15/24 Resolved: 08/11/24 Outcomes Date/Time User Outcome 08/11/24 1306 Jennifer Austin Completed Education Documentation Mobility Training, taught by Jennifer Austin at 08/11/2024 1:06 PM. Learner: Patient Readiness: Eager Method: Explanation, Demonstration Response: Verbalizes Understanding, Demonstrated Understanding Education Comments No comments found. Jennifer Austin Associated attestation - Yoly Macias, PT - 08/11/2024 1:51 PM EST Pt was integrally and physically involved in the decision making, delivery of interventions, and ongoing assessment during the pt's care session. * Annamaria Myrick RN - 08/11/2024 6:00 AM EST Goals: Problem: Falls: Fall Risk (Adult IP BH) Goal: Patient will not fall or injure themselves during hospitalization. Outcome: Progressing Problem: Falls: Fall Risk (Adult IP BH) Goal: (Goal) Patient will experience maximum safety and reduce risk for falls. Outcome: Progressing Identify possible barriers to meeting goals/advancing plan of care: Stability of the patient: Moderately Stable - Low risk of patient condition declining or worsening End of Shift Summary: Pt is alert. Bed is in low position. Call butler is within reach. * Jessie Butler MD - 08/10/2024 12:40 PM EST Urology group of [facility] was consulted. I spoke to urologist Dr. Phillips over telephone who reviewed CT images with Dr. Szymanski and recommended no need for intervention as hydronephrosis appears chronic. * Jessie Butler MD - 08/10/2024 12:11 PM EST Images from the original note were not included. JOHNNY PROGRESS NOTE Date: 08/10/2024 Author: Jessie Butler MD Patient ID: Brina Whyte is a 73 y.o. male : 1950 MR#: [id number] ASSESSMENT & PLAN Assessment/Plan Principal Problem: Hydronephrosis Brina Whyte is a 73 y.o. male who has PMH of CAD, CKD, ARASELI, ulcerative colitis, ileostomy, neurogenic bladder for which he straight catheterizes, depression/anxiety. Patient presented to ED withcomplaints of generalized weakness for a few days. Patient suffered fall on the day of admission and was unable to get himself off the ground. On arrival here WBC of 19.6, creatinine 3.7, urinalysis showed large leukocyte Estrace and WBC. CT abdomen pelvis showed no acute abnormality, showed moderate-severe right hydronephrosis without evidence of obstructing calculus or mass, right renal cyst, s/p total colectomy, area of scarring related to region of rectosigmoid and presacral region, central low-attenuation soft tissue and small gas pocket which may contain complex fluid abscess not excluded; mild bladder wall thickening and trabeculation and right lower quadrant ileostomy. 1. Generalized weakness and fall Likely secondary to UTI plus or minus ARIS. SNF placement recommended by PT. 2. ARIS on CKD stage IV Creatinine peaked at 3.87 and has improved to 3.18. As per previous php architect note baseline creatinine of 3. Business Reporter consulted. 3. UTI Patient has history of recurrent UTI, pseudomonal UTIs in the past. Urine culture growing less than10,000 CFU gram-positive cocci. On empiric IV cefepime. 4. Right hydronephrosis Patient is followed by Dr. Jasso ([facility] urologist) who I attempted to call but wasnot successful. However, I reviewed previous records from [facility] and patient has history of hydronephrosis. D/W php architect and given presence of UTI consult placed to get opinion from urologist (consult placed to urology group of [facility]). 5. Bacteremia Blood culture x 1 growing gram-positive bacilli. Patient is on empiric IV cefepime and vancomycin. Repeat blood cultures negative. Single blood culture likely to be a contaminant. If cultures remain the same in the next 24 hours I will stop antibiotics. 6. Abdominal wall excoriation Patient reportedly had some increased warmth and edema surrounding the ostomy. I do not note any cellulitic changes. According to wound nurse patient has skin breakdown around the ostomy site. 7. Anxiety and depression Continue with bupropion, duloxetine, trazodone and lorazepam. SUBJECTIVE Subjective No events overnight. Patient was feeling better and denies any complaints. He denies any nausea, vomit, fever, chill, chest pain, shortness of breath. Allergies Milk containing products (dairy) Current Medications: ascorbic acid, 1,000 mg, oral, Daily aspirin, 81 mg, oral, Daily atorvastatin, 40 mg, oral, Daily buPROPion XL, 450 mg, oral, Daily cefepime, 1 g, intravenous, q24h cholecalciferol, 2,000 Units, oral, Daily DULoxetine, 60 mg, oral, Daily finasteride, 5 mg, oral, Daily gabapentin, 200 mg, oral, Nightly heparin (porcine), 5,000 Units, subcutaneous, q12h SETH isosorbide mononitrate, 60 mg, oral, Daily methenamine hippurate, 1 g, oral, Daily pantoprazole, 40 mg, oral, q AM AC sodium bicarbonate, 650 mg, oral, BID traZODone, 200 mg, oral, Nightly vancomycin, 1,250 mg, intravenous, q48h PRN medications: acetaminophen, LORazepam OBJECTIVE Vitals: 08/09/24 1418 08/09/24 1932 08/10/24 0307 08/10/24 0846 BP: 110/70 120/76 116/75 119/68 BP Location: Right arm Left arm Right arm Left arm Patient Position: Lying Sitting Sitting Lying Pulse: 109 87 96 97 Resp: 16 18 Temp: 36.7 ??C (98.1 ??F) 36.3 ??C (97.3 ??F) 36.7 ??C (98.1 ??F) 36.6 ??C (97.9 ??F) TempSrc: Temporal Temporal SpO2: 96% 99% 97% 96% Weight: Height: Physical Exam Vitals and nursing note reviewed. Constitutional: Appearance: Normal appearance. He is normal weight. HENT: Head: Normocephalic and atraumatic. Nose: Nose normal. Mouth/Throat: Mouth: Mucous membranes are moist. Eyes: Extraocular Movements: Extraocular movements intact. Pupils: Pupils are equal, round, and reactive to light. Cardiovascular: Rate and Rhythm: Normal rate and regular rhythm. Pulmonary: Effort: Pulmonary effort is normal. Breath sounds: Normal breath sounds. Abdominal: Palpations: Abdomen is soft. There is no mass. Tenderness: There is no abdominal tenderness. There is no guarding or rebound. Comments: Functional ileostomy Musculoskeletal: General: No swelling or deformity. Skin: General: Skin is warm and dry. Neurological: General: No focal deficit present. Mental Status: He is alert. Mental status is at baseline. LABS HEMATOLOGY Lab Results Component Value Date WBC 11.8 (H) 08/10/2024 HGB 10.8 (L) 08/10/2024 HCT 34.0 (L) 08/10/2024 MCV 92.9 08/10/2024 PLT 202 08/10/2024 CHEMISTRY Lab Results Component Value Date GLUCOSE 113 (H) 08/10/2024 NA 139 08/10/2024 K 3.7 08/10/2024 CO2 19 (L) 08/10/2024 CL 113 (H) 08/10/2024 BUN 25 08/10/2024 CREATININE 3.18 (H) 08/10/2024 EGFR 20 (L) 08/10/2024 CALCIUM 8.3 (L) 08/10/2024 MG 2.2 08/08/2024 ANIONGAP 7 08/10/2024 Recent Results (from the past 168 hour(s)) Culture urine Collection Time: 08/08/24 4:44 AM Specimen: Urine, Clean Catch Result Value Ref Range Culture, Urine <10,000 CFU/mL gram positive cocci, insignificant count, no further workup Blood Culture, Peripheral Draw #2 Collection Time: 08/08/24 6:53 AM Specimen: Blood, Venous Result Value Ref Range Culture, Blood No growth at 2 days Blood Culture, Peripheral Draw #1 Collection Time: 08/08/24 6:53 AM Specimen: Blood, Venous Result Value Ref Range Culture, Blood Gram positive bacilli (AA) Gram Stain Result Aerobic bottle Gram positive bacilli (AA) Culture blood Collection Time: 08/10/24 5:45 AM Specimen: Blood, Venous Result Value Ref Range Culture, Blood Culture in progress Imaging: XR Chest 1 View Narrative: AP view of the chest, 08/08/2024. HISTORY: weakness. COMPARISON: None. FINDINGS: Lungs and pleural spaces are clear. Cardiomediastinal contours are normal. Orthopedic anchor in theright humeral head. Degenerative changes of the spine and shoulders. Impression: No acute findings. -------- FINAL REPORT -------- Dictated By: Sam Devi Dictated Date: 08/08/2024 08:03 ET Assigned Physician: Sam Devi Reviewed and Electronically Signed By: Sam Devi Signed Date: 08/08/2024 08:04 ET Workstation ID: [id number] Transcribed By: Self Edit Transcribed Date: 08/08/2024 08:[address] Abdomen Pelvis wo Contrast Narrative: CT abdomen and pelvis without contrast Comparison: [...] be complex fluid here. No acute fracture. Impression: 1. No acute traumatic abnormalities. 2. Moderate [...] by: Lobo Bailey MD on 08/08/2024 05:25:28 DAILY CARE CHECKLIST Length of Stay: 01d 14h 04m VTE Prophylaxis: Subcutaneous heparin Resuscitation: No CPR/Do Not Intubate IV Access: Peripheral Tubes, Catheters, Devices: Ileostomy PCP: No Pcp Physician Disposition: Pending clinical improvement. Jessie Butler MD 08/10/24 12:11 PM EST * Annita Mclaughlin RN - 08/10/2024 2:56 AM EST Goals: Problem: Physical Regulation:Infection Management Goal: Signs and symptoms of infection will decrease Outcome: Progressing Goal: Complications related to the disease process, condition or treatment will be avoided or minimized Outcome: Progressing Goal: Diagnostic test results will improve Outcome: Progressing Problem: Cognitive:Infection Management Goal: Knowledge of disease or condition will improve Outcome: Progressing Problem: Patient Specific Problem:Infection Management Goal: Patient Specific Outcome Outcome: Progressing Problem: Falls: Fall Risk (Adult IP BH) Goal: (Goal) Patient will experience maximum safety and reduce risk for falls. Outcome: Progressing Goal: Patient will not fall or injure themselves during hospitalization. Outcome: Progressing Identify possible barriers to meeting goals/advancing plan of care: await final cultures. Plan is str Stability of the patient: Moderately Stable - Low risk of patient condition declining or worsening End of Shift Summary: vss afebrile. Pain manageable * Wendy Rivera RN - 08/09/2024 5:24 PM EST Problem: Physical Regulation:Infection Management Goal: Signs and symptoms of infection will decrease Outcome: Progressing Goal: Complications related to the disease process, condition or treatment will be avoided or minimized Outcome: Progressing Goal: Diagnostic test results will improve Outcome: Progressing Problem: Cognitive:Infection Management Goal: Knowledge of disease or condition will improve Outcome: Progressing Problem: Patient Specific Problem:Infection Management Goal: Patient Specific Outcome Outcome: Progressing Problem: Falls: Fall Risk (Adult [facility]) Goal: (Goal) Patient will experience maximum safety and reduce risk for falls. Outcome: Progressing Goal: Patient will not fall or injure themselves during hospitalization. Outcome: Progressing Goals: Infection management Identify possible barriers to meeting goals/advancing plan of care: UTI, pos blood cx Stability of the patient: Moderately Stable - Low risk of patient condition declining or worsening End of Shift Summary: patient with UTI, pos blood cx, tachy this shift, started cefepime and vanco,repeat cultures pending * Denisha JoyD - 08/09/2024 3:05 PM EST Initial Pharmacy Vancomycin Dosing Consultation Consult ordering provider: Jessie Butler MD 73 y.o. male is being started on vancomycin for Baceteremia/UTI for 7 days with a goal trough per Protocol of 10 - 20 mg/L. Relevant data Height: 1.778 m (70 ) Weight: 90.7 kg (200 lb) Temp Readings from Last 3 Encounters: 08/09/24 36.7 ??C (98.1 ??F) WBC Date Value Ref Range Status 08/09/2024 12.4 (H) 4.8 - 10.8 K/mcL Final 08/08/2024 19.6 (H) 4.8 - 10.8 K/mcL Final Creatinine Date Value Ref Range Status 08/09/2024 3.67 (H) 0.70 - 1.30 mg/dL Final 08/08/2024 3.87 (H) 0.70 - 1.30 mg/dL Final 08/08/2024 3.70 (H) 0.70 - 1.30 mg/dL Final Estimated Creatinine Clearance: 20.9 mL/min (A) (by C-G formula based on SCr of 3.67 mg/dL (H)). mL/min Cockcroft-Gault Recent Results (from the past 168 hour(s)) Culture urine Collection Time: 08/08/24 4:44 AM Specimen: Urine, Clean Catch Result Value Ref Range Culture, Urine <10,000 CFU/mL gram positive cocci, insignificant count, no further workup Blood Culture, Peripheral Draw #2 Collection Time: 08/08/24 6:53 AM Specimen: Blood, Venous Result Value Ref Range Culture, Blood No growth at 24 hours Blood Culture, Peripheral Draw #1 Collection Time: 08/08/24 6:53 AM Specimen: Blood, Venous Result Value Ref Range Culture, Blood No growth at 24 hours Gram Stain Result Aerobic bottle Gram positive bacilli (AA) Patient is also receiving the following antibiotic(s): Cefepime Plan Patient has not received a Initial vancomycin dose. Pharmacy will initiate a maintenance dose of 1250 mg every 48 hours starting on 08/09 at 17:00. Per protocol, therapy is expected to last more than 5 days and therefore a trough indicated. A trough has been ordered for 08/11 at 16:00 prior to 2nd dose. Will continue to monitor and recommend changes as necessary. Jazmin Beach, PharmDorian 08/09/24 3:03 PM EST * Vandana Sahu RN - 08/09/2024 2:22 PM EST Images from the original note were not included. Ostomy Initial Consult Visit Date: 08/09/2024 Patient Name: Brina Whyte Date of : 1950 Surgery Date: Patient stated to have ileostomy for 20 years. Relevant Medical History: Total colectomy secondary to ulcerative collitis. Patient with erythema, edema and increased warmth around ileostomy. Ostomy Exam: Colostomy (Active) Stomal Appliance 2 piece;Barrier Ring;Changed;Leaking 08/09/24 0208 Stoma Assessment Clean;Intact;Red;Painful 08/09/24 0942 Peristomal Assessment Clean;Intact;Red 08/09/24 0942 Treatment Pouch change;Site care 08/08/24 0150 Ileostomy RLQ (Active) Wound Image 08/09/24 1204 Stomal Appliance 2 piece;Convex 08/09/24 1420 Stoma Assessment [place] 08/09/24 1420 Peristomal Assessment Erosion 08/09/24 1420 Treatment Pouch change 08/09/24 1420 Impression/Recommendations: Patient independent with ileostomy. He is using 2 piece [place] appliance with flat wafer and still cut to fit. I encouraged him to make appointment with ostomy clinic for adjustments in supplies. His stoma is flat with some excoriation immediately all around stoma andmost likely related to cutting wafer too large. Patient stated I will take your information for fu ture but for now I am doing ok by myself . He stated ti change appliance every 3 days. His surrounding skin has some redness and patient stated it was caused by taping. I recommended 2 piece David with convex wafer ref# [id number] with pouch ref #[id number] and adapt seal ref#[id number]. Encouraged to continue crusting with powder and skin prep until excoriation all around stoma was healed. I informed patient he should cut wafer 1 1/8 inch. 08/09/2024 2:22 PM EST * Jessie uBtler MD - 08/09/2024 1:54 PM EST Images from the original note were not included. JOHNNY PROGRESS NOTE Date: 08/09/2024 Author: Jessie Butler MD Patient ID: Brina Whyte is a 73 y.o. male : 1950 MR#: [id number] ASSESSMENT & PLAN Assessment/Plan Principal Problem: Hydronephrosis Brina Whyte is a 73 y.o. male who has PMH of CAD, CKD, ARASELI, ulcerative colitis, ileostomy, neurogenic bladder for which he straight catheterizes, depression/anxiety. Patient presented to ED withcomplaints of generalized weakness for a few days. Patient suffered fall on the day of admission and was unable to get himself off the ground. On arrival here WBC of 19.6, creatinine 3.7, urinalysis showed large leukocyte Estrace and WBC. CT abdomen pelvis showed no acute abnormality, showed moderate-severe right hydronephrosis without evidence of obstructing calculus or mass, right renal cyst, s/p total colectomy, area of scarring related to region of rectosigmoid and presacral region, central low-attenuation soft tissue and small gas pocket which may contain complex fluid abscess not excluded; mild bladder wall thickening and trabeculation and right lower quadrant ileostomy. 1. Generalized weakness and fall Likely secondary to UTI plus or minus ARIS. Will need PT eval. 2. ARIS on CKD stage IV Creatinine peaked at 3.87 and has increased to 3.67. As per previous php architect note baseline creatinine of 3. Business Reporter consulted. 3. UTI Patient has history of recurrent UTI, pseudomonal UTIs in the past. Urine culture growing less than10,000 CFU gram-positive cocci. Due to history of Pseudomonas UTI I will switch antibiotic to cefepime. 4. Right hydronephrosis Patient is followed by Dr. Jasso ([facility] urologist) who attempted to call but was not successful. However, I reviewed previous records from [facility] and hydronephrosis is not new finding, has been present since 2022. Right renal cyst is also a known finding. 5. Bacteremia Blood culture x 1 growing gram-positive bacilli. Patient is on empiric IV cefepime. I will add vancomycin. Could be contaminant. I will repeat blood culture. 6. Abdominal wall cellulitis Patient reportedly had some increased warmth and edema surrounding the ostomy. I have not noticed any skin change. I doubt cellulitis. 7. Anxiety and depression Continue with bupropion, duloxetine, trazodone and lorazepam. SUBJECTIVE Subjective No events overnight. Patient complained of feeling fatigued. He denies any nausea, vomit, fever, chill, chest pain, shortness of breath. Allergies Milk containing products (dairy) Current Medications: ascorbic acid, 1,000 mg, oral, Daily aspirin, 81 mg, oral, Daily atorvastatin, 40 mg, oral, Daily buPROPion XL, 450 mg, oral, Daily cefTRIAXone, 1 g, intravenous, q24h cholecalciferol, 2,000 Units, oral, Daily DULoxetine, 60 mg, oral, Daily finasteride, 5 mg, oral, Daily gabapentin, 200 mg, oral, Nightly heparin (porcine), 5,000 Units, subcutaneous, q12h SETH isosorbide mononitrate, 60 mg, oral, Daily methenamine hippurate, 1 g, oral, Daily pantoprazole, 40 mg, oral, q AM AC sodium bicarbonate, 650 mg, oral, BID traZODone, 200 mg, oral, Nightly PRN medications: acetaminophen, LORazepam OBJECTIVE Vitals: 08/08/24 2253 08/08/24 2307 08/09/24 0334 08/09/24 0906 BP: (!) 108/94 103/66 113/67 BP Location: Right arm Right arm Right arm Patient Position: Lying Lying Lying Pulse: 93 80 93 Resp: 18 18 19 Temp: 36.5 ??C (97.7 ??F) 36.3 ??C (97.3 ??F) 36.5 ??C (97.7 ??F) TempSrc: Oral Oral Temporal SpO2: 99% 98% 94% Weight: Height: Physical Exam Vitals and nursing note reviewed. Constitutional: Appearance: Normal appearance. He is normal weight. HENT: Head: Normocephalic and atraumatic. Nose: Nose normal. Mouth/Throat: Mouth: Mucous membranes are moist. Eyes: Extraocular Movements: Extraocular movements intact. Pupils: Pupils are equal, round, and reactive to light. Cardiovascular: Rate and Rhythm: Normal rate and regular rhythm. Pulmonary: Effort: Pulmonary effort is normal. Breath sounds: Normal breath sounds. Abdominal: Palpations: Abdomen is soft. There is no mass. Tenderness: There is no abdominal tenderness. There is no guarding or rebound. Comments: Functional ileostomy Musculoskeletal: General: No swelling or deformity. Skin: General: Skin is warm and dry. Neurological: General: No focal deficit present. Mental Status: He is alert. Mental status is at baseline. LABS HEMATOLOGY Lab Results Component Value Date WBC 12.4 (H) 08/09/2024 HGB 11.7 (L) 08/09/2024 HCT 36.8 (L) 08/09/2024 MCV 91.5 08/09/2024 PLT 211 08/09/2024 CHEMISTRY Lab Results Component Value Date GLUCOSE 80 08/09/2024 NA 138 08/09/2024 K 4.1 08/09/2024 CO2 19 (L) 08/09/2024 CL 114 (H) 08/09/2024 BUN 30 (H) 08/09/2024 CREATININE 3.67 (H) 08/09/2024 EGFR 17 (L) 08/09/2024 CALCIUM 8.3 (L) 08/09/2024 MG 2.2 08/08/2024 ANIONGAP 5 08/09/2024 Recent Results (from the past 168 hour(s)) Culture urine Collection Time: 08/08/24 4:44 AM Specimen: Urine, Clean Catch Result Value Ref Range Culture, Urine <10,000 CFU/mL gram positive cocci, insignificant count, no further workup Blood Culture, Peripheral Draw #2 Collection Time: 08/08/24 6:53 AM Specimen: Blood, Venous Result Value Ref Range Culture, Blood No growth at 24 hours Blood Culture, Peripheral Draw #1 Collection Time: 08/08/24 6:53 AM Specimen: Blood, Venous Result Value Ref Range Culture, Blood No growth at 24 hours Gram Stain Result Aerobic bottle Gram positive bacilli (AA) Imaging: XR Chest 1 View Narrative: AP view of the chest, 08/08/2024. HISTORY: weakness. COMPARISON: None. FINDINGS: Lungs and pleural spaces are clear. Cardiomediastinal contours are normal. Orthopedic anchor in theright humeral head. Degenerative changes of the spine and shoulders. Impression: No acute findings. -------- FINAL REPORT -------- Dictated By: Sam Devi Dictated Date: 08/08/2024 08:03 ET Assigned Physician: Sam Devi Reviewed and Electronically Signed By: Sam Devi Signed Date: 08/08/2024 08:04 ET Workstation ID: [id number] Transcribed By: Self Edit Transcribed Date: 08/08/2024 08:[address] Abdomen Pelvis wo Contrast Narrative: CT abdomen and pelvis without contrast Comparison: [...] be complex fluid here. No acute fracture. Impression: 1. No acute traumatic abnormalities. 2. Moderate [...] by: Lobo Bailey MD on 08/08/2024 05:25:28 DAILY CARE CHECKLIST Length of Stay: 15h 47m VTE Prophylaxis: Subcutaneous heparin Resuscitation: No CPR/Do Not Intubate IV Access: Peripheral Tubes, Catheters, Devices: Ileostomy PCP: No Pcp Physician Disposition: Pending clinical improvement. Patient's Evelyn was updated over telephone. Jessie Butler MD 08/09/24 1:54 PM EST * Naty Artis RN - 08/09/2024 1:38 PM EST ROCIO: 08/11-08/12 Barrier: IV antibiotics, cultures pending Plan: STR * Bozena Camacho OT - 08/09/2024 11:06 AM EST Therapy session was attempted for Brina Whyte by Bozena Camacho OT on 08/09/2024. The patient was unable to be seen for the following reason(s): Refused treatment Plan for return visit: As soon as possible * Annita Mclaughlin RN - 08/09/2024 3:03 AM EST Problem: Physical Regulation:Infection Management Goal: Signs and symptoms of infection will decrease Outcome: Not Progressing Goal: Complications related to the disease process, condition or treatment will be avoided or minimized Outcome: Not Progressing Goal: Diagnostic test results will improve Outcome: Not Progressing Problem: Cognitive:Infection Management Goal: Knowledge of disease or condition will improve Outcome: Not Progressing Problem: Patient Specific Problem:Infection Management Goal: Patient Specific Outcome Outcome: Not Progressing Problem: Falls: Fall Risk (Adult IP BH) Goal: (Goal) Patient will experience maximum safety and reduce risk for falls. Outcome: Not Progressing Goal: Patient will not fall or injure themselves during hospitalization. Outcome: Not Progressing Goals: Identify possible barriers to meeting goals/advancing plan of care: admitted w infection on antibiotics unable to void Stability of the patient: Moderately Stable - Low risk of patient condition declining or worsening End of Shift Summary: pt unable to void st cathed for 700ml cloudy thick urine * Justa Moura RN - 08/08/2024 10:01 PM EST ED RN HANDOFF (All Mayes Below Must Be Completed) Reason/Diagnosis for Admission: Type of Admission: [x] Medsurg, [] Telemetry Already in a Hospital Bed: [] Yes / [x] No Room Considerations/Precautions (ex: fever, diarrhea, or any infectious concerns): [] Yes / [x] No E Business Consultant: [] Yes / [x] No If YES, Cardiac Rhythm: [x] NSR, [] SB, [] ST, [] A-FIB, [] A-Flutter, [] Pacemaker, [] 1st Degree HB, [] 2nd Degree HB, [] 3rd Degree HB Reason for E Business Consultant: VS: Visit Vitals BP (!) 148/84 (BP Location: Right arm;Upper, Patient Position: Lying) Pulse 98 Temp 36.5 ??C (97.7 ??F) (Oral) Resp 18 Ht 1.778 m (70 ) Wt 90.7 kg (200 lb) SpO2 95% BMI 28.70 kg/m?? BSA 2.09 m?? Current Mental Status: A/O x [x]4, []3, []2, []1 Current Ambulation Status: IV Access: [x] Yes / [] No Field IV present: [x] Yes / [] No Hx of Violence: [] Yes / [x] No / [] Unknown Fall Risk:[x] Yes / [] No Yellow Bracelet Applied [] Yes / [x] No Yellow Socks Applied [x] Yes / [] No Patient Belongings inventoried and BL completed: [] Yes / [x] No Patient belongings stored in the security closet: [] Yes (If Yes please supply Security bag #): [x] No Patient Medications stored in Pharmacy: [] Yes (If Yes please supply Medication Security bag #): [x] No ED Summary of Care: Ostomy changed, given fluids and nighttime meds. Being admitted for hydronephrosis. Submitted by and Phone Extension: ER Green pod, [phone] * Clayton Guerrero, PharmD - 08/08/2024 3:19 PM EST Home medications reconciled with [facility] [phone]. Patient chart has been updated to reflect changes. * Bella Mobley RN - 08/08/2024 1:00 PM EST I have left multiple voicemails for pts PCP office to obtain pts complete medication list and schedule. I have not heard back or received faxed info. * Heather German, PT - 08/08/2024 10:04 AM EST [facility] Physical Therapy Evaluation & Treatment PT Discharge Recommendations: [facility] facility placement Staff Recommendations for safe patient handling: CG/Damir with gait/transfers Precautions Medical Precautions: Fall Risk RUE Weight Bearing Status: Full LUE Weight Bearing Status: Full RLE Weight Bearing Status: Full LLE Weight Bearing Status: Full Fall prevention education provided including use of call light in hospital, use of appropriate assistive device, safe mobility techniques, and safety measures at home. PT Received On: 08/08/24 PT Start Time: 0900 PT Stop Time: 0930 PT Time Calculation (min): 30 min Precautions Medical Precautions: Fall Risk RUE Weight Bearing Status: Full LUE Weight Bearing Status: Full RLE Weight Bearing Status: Full LLE Weight Bearing Status: Full Cognition Overall Cognitive Status: Within Functional Limits Arousal/Alertness: Appropriate responses to stimuli Orientation Level: Oriented X4 Cognition Comments: anxious and keep asking for anxiety meds Hearing: Intact Vision: Intact Speech: Intact Integumentary: ostomy bag leaking, put towel around and alerted nurse. Small abrasions noted on B which the pt states is from falls . History of Present Illness: Patient is a 73 y.o. male admitted to [facility] on 08/08/2024. There is no problem list on file for this patient. History reviewed. No pertinent past medical history. History reviewed. No pertinent surgical history. Social History Home Living Environment: Home Living Type of Home: Apartment Lives With: Alone Home Adaptive Equipment: Walker - rolling Home Layout: One level Home Access: Elevator Prior Function Level of [place]: Independent with mobility and functional transfers Ambulation Status: Household ambulator Receives Help From: (homemaker comes in once a week to clean and do laundry) Indoor Mobility Assistance: Independent Prior Device Use: Walker Prior Function Comments: multiple falls and calls ambulance to get up General Assessment 08/08/24 0900 PT Last Visit PT Received On 08/08/24 PT Time Calculation PT Start Time 0900 PT Stop Time 0930 PT Time Calculation (min) 30 min Precautions Medical Precautions Fall Risk RUE Weight Bearing Status Full LUE Weight Bearing Status Full RLE Weight Bearing Status Full LLE Weight Bearing Status Full Vital Signs BP (184/127 when standing and then dropped to systolic of 154) BP Method Automatic BP Location Right arm Oxygen Therapy Oxygen Therapy None (Room air) Pain Assessment Pain Assessment No/denies pain Cognition Overall Cognitive Status WFL Arousal/Alertness Appropriate responses to stimuli Orientation Level Oriented X4 Cognition Comments anxious and keep asking for anxiety meds Home Living Type of Home Apartment Lives With Alone Home Adaptive Equipment Walker - rolling Home Layout One level Home Access Elevator Prior Function Level of [place] Independent with mobility and functional transfers Ambulation Status Household ambulator Receives Help From (homemaker comes in once a week to clean and do laundry) Indoor Mobility Assistance Independent Prior Device Use Walker Prior Function Comments multiple falls and calls ambulance to get up Activity Tolerance Endurance Tolerates less than 10 min exercise with changes in vital signs Activity Tolerance Comments felt dizzy when we stood up, checked orthostatics but difficulty getting accurate read due to shakiness and unable to realx arm Static Sitting Balance Static Sitting-Level of Assistance Contact guard Dynamic Sitting Balance Dynamic Sitting-Level of Assistance Contact guard Static Standing Balance Static Standing-Level of Assistance Contact guard Static Standing-Comment/Number of Minutes dizzy when standing Dynamic Standing Balance Dynamic Standing-Level of Assistance Minimum assistance;Contact guard Bed Mobility Rolling Left and Right Assistance Close supervision Sitting to Lying Assistance Minimum assistance Sitting to Lying Deficit Assist lifting left leg onto bed;Assist lifting right leg onto bed;Assist to position upper body;Supervision/safety awareness;Steadying Lying to Sitting Assistance Minimum assistance Lying to Sitting Deficit Verbal cueing;Increased time to complete;Assist lifting left leg off of bed;Assist lifting right leg off of bed;Assist to push upper body to upright Transfers Sit to Stand Assistance Contact guard;Minimum assistance Sit to Stand Deficit Supervision/safety awareness;Assist for foot placement;Assist for lift off;Assist for trunk control;Increased time to complete;Steadying Chair/Bed to Chair/Bed Transfer Assistance Contact guard Chair/Bed to Chair/Bed Transfer Deficit Supervision/safety awareness Transfer Comments STS x3 extremely dizzy and couldnt hold over 20 seconds Ambulation Walking Assistance Contact guard Walking Deficit Steadying;Supervision/safety awareness;Increased time to complete;Assist for foot placement;Assist for trunk control;Assist for weight shifting;LE weakness;Impaired balance;Limited endurance Device Rolling walker Distance Ambulated (ft) 3 Comments shakiness PT Assessment PT Assessment Results Decreased strength;Decreased range of motion;Decreased endurance;Impaired balance;Impaired gait;Decreased safety awareness;Impaired judgement;Decreased mobility Prognosis Good Evaluation/Treatment Tolerance Patient limited by fatigue Comments limited by fatigue and anxiety Medical Staff Made Aware Yes Plan PT Plan Skilled PT PT Frequency 2-5 days per week PT Duration of Sessions 15-30 min per session PT Treatments per day PRN PT Discharge Recommendations [facility] facility placement PT - Evaluation Status Complete PT Evaluation Time Entry PT Evaluation (Moderate) Time Entry 30 Treatment performed during evaluation: None performed ADDITIONAL COMMENTS: Chart reviewed. RN clears pt for session. Pt agrees to participate and presented in bed upon PT arrival. All lines in place. Medical precautions observed appropriately. Initiated education on the importance of PT, bed mobility safety, Transfer Safety, Ambulation Safety , Therapy Plan of Care, Home Safety, Energy Conservations strategies, and importance of OOB activity . Pt verbalized understanding. EXIT STATUS: Session ended with patient in bed, tray table and call light within reach, and RN made aware. Physical Therapy Assessment/Plan Brina Whyte is a 73 y.o. male admitted to [facility] on 08/08/2024 for recurrent falls with LE weakness . Pt presents with decreased BLE strength, balance deficits, decreased activity tolerance, and far below functional baseline. Pt performed bed mobility Contact guard, Bedrail, HOB elevated, and Therapist assist, Transfers with Contact guard and Minimal assist, FWW and ambulates Contact guard and Minimal assist with FWW 3 ft side steps on EOB . Pt will benefit from skilled acute PT during hospital stay to improve the deficits listed above and optimize function. PT recommends [facility] facility placement when medically stable for safe discharge and to optimize functional mobility and independence. Goals Encounter Problems Encounter Problems (Active) Template: Physical Therapy Problem: PT Jail Goals Dates: Start: 08/08/24 Problem: PT Short Term Goals Dates: Start: 08/08/24 Goal: Pt will ambulate 50 ft with walker Dates: Start: 08/08/24 Expected End: 08/15/24 Goal: Pt will transfer from bed to chair with supervision Dates: Start: 08/08/24 Expected End: 08/15/24 Encounter Problems (Resolved) There are no resolved problems. Education Documentation Mobility Training, taught by Heather German PT at 08/08/2024 10:03 AM. Learner: Patient Readiness: Eager Method: Explanation, Demonstration Response: Verbalizes Understanding, Demonstrated Understanding Education Comments No comments found. Heather German PT * Bella Mobley RN - 08/08/2024 9:30 AM EST This RN took down pts leaking colostomy bag and adhesive dressing, provided skin care and redressedsite with new colostomy set up. Pts linen changed and repositioned. Benzoin appliedaround skin to increase adhesive seal integrity. * Alex Rose DO - 08/08/2024 7:55 AM EST ED Course as of 08/08/24 1239 Tue Aug 08, 2024 0322 Initial labs reviewed show a leukocytosis to 19.6, renal function of 34/3.70. Per review of previous documentation his baseline creatinine is 2.7- 3.3, his outpatient php architect is Dr. Green. Has been unable to provide urine sample thus far, will BladderScan. Chest x-ray and noncontrast CT as well as blood cultures and lactic have been added on. Will attempt to obtain urine sample, if he is unable to provide will BladderScan. [LQ] 0347 Bladder scan reveals greater than 350 cc of urine, he was only able to produce about 5 cc. Wilson catheter will be placed. [LQ] 0404 Patient is refusing Wilson catheter placement. He states he will allow for straight cath, however has too many things hanging from my body already [LQ] [address] without any acute concerning findings. Urinalysis is still pending. [LQ] 0637 Urinalysis has large leuk esterase, protein and 928.4 WBCs. He will be treated with a dose of IV antibiotics and will require antibiotics at discharge. [LQ] 0639 Patient to be signed out to oncoming provider pending PT and social service evaluation, ultimate disposition [LQ] 0756 Patient signed out to me at end of shift transfer of care. Generalized weakness. Chronic recurrent UTI. Otherwise there does not appear to be any acute medical issues. Patient is pending subacute case management evaluation [] 1232 This patient was signed out to me as a subacute. I reviewed the chart. The patient's last creatinine was 2.7 and is now 3.7. The bicarb is quite low at 16, and I suspect metabolic acidosis. The patient has grossly infected urine with moderate to severe hydronephrosis on CT scan and a white blood cell count of almost 20,000. Refused Wilson catheter with 350 residual urine retention. This can be repeated. I added on a VBG. The patient has been treated with IV Rocephin. This patient will require admission for multiple medical problems. [MC] ED Course User Index [LQ] DEEPA Juan [MC] Alex Rose DO Clinical Impressions as of 08/08/24 1239 Weakness of both lower extremities Acute cystitis without hematuria Hydronephrosis, unspecified hydronephrosis type Leukocytosis, unspecified type Metabolic acidosis Acute renal failure superimposed on chronic kidney disease, unspecified acute renal failure type, unspecified CKD stage (CMS/HCC) Admit to Inpatient 1. Weakness of both lower extremities 2. Acute cystitis without hematuria 3. Hydronephrosis, unspecified hydronephrosis type 4. Leukocytosis, unspecified type 5. Metabolic acidosis 6. Acute renal failure superimposed on chronic kidney disease, unspecified acute renal failure type, unspecified CKD stage (CMS/HCC) Procedures * Marge Segura RN - 08/08/2024 4:04 AM EST Pt refusing wilson at this time. Pt educated on the need for the wilson but continues to refuse stating I already have too much stuff hanging off me. Provider notified. Marge Segura RN 08/08/24 0406 * Marge Segura RN - 08/08/2024 1:51 AM EST Pt fell on ostomy bag at home causing stool to get all over pt.upon arrival pt was given bed bath and colostomy bag/dressing was clean and changed. Marge Segura RN 08/08/24 0153 * Jamie Crawford MD - 08/08/2024 12:47 AM EST Emergency Medicine Note Patient Name: Brina Whyte Initial Evaluation: 08/08/2024 : 1950 Patient's PCP: No Pcp Physician Emergency Physician: Jamie Crawford MD History of Present Illness Chief Complaint: Chief Complaint Patient presents with Extremity Weakness Pt coming from home via ems. Pt attempted to get out of bag to change colostomy bag. When getting out leg buckled and gave out this happened around 1930, pt on the ground until 0 after he crawled to the bathroom and was able to pull bathroom alarm. Denies LOC, head strike, thinners. HPI: This is a 73-year-old male with a past medical history of CAD, depression with anxiety, GERD, osteoarthritis, IBS, urinary retention, neurogenic bladder, UC, CKD presenting for evaluation of generalized weakness and fall today that he was unable to get himself up off the ground. He states overthe past couple years his legs give out on him more frequently. He typically ambulates at baseline with a walker and was using this when his legs gave out on him today. He did not hit his head or lose consciousness. States he was not strong enough to get himself up off the ground. He has no physical complaints at this time. Arrival to emergency department, his ostomy bag had noted damage, he was cleaned and the bag was replaced. ROS: I have performed a ROS with the pertinent positives and negatives documented in the history ofpresent illness. Previous History Past Medical History: Diagnosis Date Anemia Anxiety CAD (coronary artery disease) CKD (chronic kidney disease) stage 4, GFR 15-29 ml/min (CMS/HCC) Depression Hypercholesteremia Ulcerative colitis (CMS/HCC) Past Surgical History: Procedure Laterality Date CORONARY STENT PLACEMENT ILEOSTOMY SHOULDER SURGERY Bilateral TOTAL COLECTOMY No family history on file. is allergic to milk containing products (dairy). No current facility-administered medications on file prior to encounter. Current Outpatient Medications on File Prior to Encounter Medication Sig Dispense Refill ascorbic acid (VITAMIN C) 1,000 mg tablet Take 1 tablet (1,000 mg total) by mouth 1 (one) time eachday. aspirin 81 mg EC tablet Take 1 tablet (81 mg total) by mouth daily. atorvastatin (LIPITOR) 40 mg tablet Take 1 tablet (40 mg total) by mouth 1 (one) time each day. DULoxetine (CYMBALTA) [address] capsule Take 1 capsule (60 mg total) by mouth daily. isosorbide mononitrate (IMDUR) 60 mg 24 hr tablet Take 1 tablet (60 mg total) by mouth 1 (one) timeeach day. omeprazole (PriLOSEC) [address] capsule Take 1 capsule (20 mg total) by mouth daily. [DISCONTINUED] tamsulosin (FLOMAX) 0.4 mg 24 hr capsule Take 2 capsules (0.8 mg total) by mouth daily. buPROPion XL (WELLBUTRIN XL) 150 mg 24 hr tablet Take 3 tablets (450 mg total) by mouth 1 (one) time each day. cholecalciferol (VITAMIN D-3) 50 mcg (2,000 unit) capsule Take 1 capsule (2,000 Units total) by mouth 1 (one) time each day. finasteride (PROSCAR) 5 mg tablet Take 1 tablet (5 mg total) by mouth 1 (one) time each day. Do notcrush, chew, or split. gabapentin (NEURONTIN) 100 mg capsule Take 2 capsules (200 mg total) by mouth at bedtime. LORazepam (ATIVAN) 1 mg tablet Take 1 tablet (1 mg total) by mouth 2 (two) times a day if needed for anxiety. methenamine hippurate (HIPREX) 1 gram tablet Take 1 tablet (1 g total) by mouth 1 (one) time each day. sodium bicarbonate 650 mg tablet Take 1 tablet (650 mg total) by mouth 2 (two) times a day. traZODone (DESYREL) 100 mg tablet Take 2 tablets (200 mg total) by mouth at bedtime. Physical Exam ED Triage Vitals [08/08/24 0058] Temp Heart Rate Resp BP 36.8 ??C (98.2 ??F) 105 18 136/83 SpO2 Temp Source Heart Rate Source Patient Position 97 % Oral -- -- BP Location FiO2 (%) -- -- General: Well-appearing, well nourished, in no acute distress HEENT: PERRL, EOMI, external ears and nose appear unremarkable, airway is patent Neck: Supple, full range of motion Chest: Clear to auscultation; no evidence of respiratory distress Circulatory: RRR, extremities well perfused Abdomen: Non-distended, Non-Tender Extremities: Normal ROM, No edema Skin: Warm and dry Neuro: Alert and oriented, no focal deficits Results Labs Reviewed BASIC METABOLIC PANEL - Abnormal Result Value Sodium 135 Potassium 4.4 Chloride 111 (*) CO2 16 (*) Anion Gap 8 Glucose 86 BUN 34 (*) Creatinine 3.70 (*) eGFR 17 (*) BUN/Creatinine Ratio 9.2 Calcium 8.5 CBC WITH AUTO DIFFERENTIAL - Abnormal WBC 19.6 (*) RBC 4.50 Hemoglobin 13.6 Hematocrit 41.9 (*) MCV 93.3 MCH 30.3 MCHC 32.5 RDW 13.0 Platelets 208 MPV 10.2 NRBC 0.0 NRBC Absolute 0.00 Neutrophils Relative 87.5 Lymphocytes Relative 3.6 Monocytes Relative 8.0 Eosinophils Relative 0.2 Basophils Relative 0.2 Immature Granulocytes Relative 0.5 Neutrophils Absolute 17.18 (*) Lymphocytes Absolute 0.70 (*) Monocytes Absolute 1.57 (*) Eosinophils Absolute 0.04 Basophils Absolute 0.04 Immature Granulocytes Absolute 0.09 (*) URINALYSIS WITH REFLEX MICROSCOPIC AND CULTURE - Abnormal Specific [place] Urine 1.019 pH, Urine 5.5 Leukocytes, Urine Large (*) Nitrite, Urine Negative Protein, Urine 30 (*) Glucose, Urine Negative Ketones, Urine Negative Urobilinogen, Urine 0.2 Bilirubin, Urine Negative Blood, Urine Trace (*) RBC, Urine 5.8 (*) WBC, Urine 928.4 (*) Squamous Epithelial, Urine 16 Bacteria, Urine Negative Hyaline Casts, Urine 8.8 (*) VENOUS BLOOD GAS - Abnormal pH, Carlos 7.26 (*) pCO2, Carlos 39 (*) pO2, Carlos 34 HCO3, Venous 16.7 (*) O2 Sat, Carlos 58.0 Base Excess, Carlos -9.0 (*) BASIC METABOLIC PANEL - Abnormal Sodium 135 Potassium 4.7 Chloride 111 (*) CO2 19 (*) Anion Gap 5 Glucose 114 (*) BUN 33 (*) Creatinine 3.87 (*) eGFR 16 (*) BUN/Creatinine Ratio 8.5 Calcium 9.0 MAGNESIUM - Normal Magnesium 2.2 CREATINE KINASE - Normal Total CK 127 LACTATE - Normal Lactate 1.5 CULTURE BLOOD Culture, Blood Culture in progress CULTURE BLOOD Culture, Blood Culture in progress CULTURE URINE CBC AND DIFFERENTIAL Narrative: The following orders were created for panel order CBC and differential. Procedure Abnormality Status --------- ------ CBC auto differential[[id number]] Abnormal Final result Please view results for these tests on the individual orders. URINALYSIS WITH REFLEX MICROSCOPIC AND CULTURE Narrative: The following orders were created for panel order Urinalysis with reflex microscopic and culture. Procedure Abnormality Status --------- ------ Urinalysis with reflex ...[[id number]] Abnormal Final result Pepper urine culture tube[[id number]] Final result Please view results for these tests on the individual orders. SODIUM, URINE, RANDOM Sodium, Ur 25 CREATININE, URINE, RANDOM Creatinine, Urine 193.0 PROTEIN, URINE, RANDOM Protein, Urine 121 POCT GLUCOSE, BLOOD Abnormal Labs Reviewed BASIC METABOLIC PANEL - Abnormal; Notable for the following components: Result Value Chloride 111 (*) CO2 16 (*) BUN 34 (*) Creatinine 3.70 (*) eGFR 17 (*) All other components within normal limits CBC WITH AUTO DIFFERENTIAL - Abnormal; Notable for the following components: WBC 19.6 (*) Hematocrit 41.9 (*) Neutrophils Absolute 17.18 (*) Lymphocytes Absolute 0.70 (*) Monocytes Absolute 1.57 (*) Immature Granulocytes Absolute 0.09 (*) All other components within normal limits URINALYSIS WITH REFLEX MICROSCOPIC AND CULTURE - Abnormal; Notable for the following components: Leukocytes, Urine Large (*) Protein, Urine 30 (*) Blood, Urine Trace (*) RBC, Urine 5.8 (*) WBC, Urine 928.4 (*) Hyaline Casts, Urine 8.8 (*) All other components within normal limits VENOUS BLOOD GAS - Abnormal; Notable for the following components: pH, Carlos 7.26 (*) pCO2, Carlos 39 (*) HCO3, Venous 16.7 (*) Base Excess, Carlos -9.0 (*) All other components within normal limits BASIC METABOLIC PANEL - Abnormal; Notable for the following components: Chloride 111 (*) CO2 19 (*) Glucose 114 (*) BUN 33 (*) Creatinine 3.87 (*) eGFR 16 (*) All other components within normal limits CT Abdomen Pelvis wo Contrast Final Result 1. No acute traumatic abnormalities. 2. Moderate [...] by: Lobo Bailey MD on 08/08/2024 05:25:28 XR Chest 1 View Final Result No acute findings. -------- FINAL REPORT -------- Dictated By: Sam Devi Dictated Date: 08/08/2024 08:03 ET Assigned Physician: Sam Devi Reviewed and Electronically Signed By: Sam Devi Signed Date: 08/08/2024 08:04 ET Workstation ID: [id number] Transcribed By: Self Edit Transcribed Date: 08/08/2024 08:03 ET I have discussed the incidental/abnormal imaging and/or lab abnormalities with the patient and haveinstructed them the need for further evaluation and workup with their primary care doctor. I have provided the patient with a paper copy of the abnormality. The laboratory results, imaging results and other diagnostic exam results were reviewed in the EMR. EKG Interpretation Critical Care Time None ? Medical Decision Making Medications ascorbic acid (VITAMIN C) tablet 1,000 mg (has no administration in time range) aspirin EC tablet 81 mg (has no administration in time range) atorvastatin (LIPITOR) tablet 40 mg (has no administration in time range) buPROPion XL (WELLBUTRIN XL) 24 hr tablet 450 mg (has no administration in time range) cholecalciferol (VITAMIN D-3) tablet 2,000 Units (has no administration in time range) DULoxetine (CYMBALTA) DR capsule 60 mg (has no administration in time range) finasteride (PROSCAR) tablet 5 mg (has no administration in time range) gabapentin (NEURONTIN) capsule 200 mg (200 mg oral Given 08/08/242108) isosorbide mononitrate (IMDUR) 24 hr tablet 60 mg (has no administration in time range) LORazepam (ATIVAN) tablet 1 mg (1 mg oral Given 08/08/242326) methenamine hippurate (HIPREX) tablet 1 g (has no administration in time range) pantoprazole (PROTONIX) EC tablet 40 mg (has no administration in time range) sodium bicarbonate tablet 650 mg (has no administration in time range) traZODone (DESYREL) tablet 200 mg (200 mg oral Given 08/08/242108) lactated Ringer's infusion (100 mL/hr intravenous New Bag 08/08/24 165) cefTRIAXone (ROCEPHIN) 1 g in sterile water 10 mL IV syringe (has no administration in time range) heparin (UFH) injection 5,000 Units (5,000 Units subcutaneous Given 08/08/242109) acetaminophen (TYLENOL) tablet 650 mg (has no administration in time range) ondansetron (PF) (ZOFRAN) injection 4 mg (has no administration in time range) lidocaine 2 % mucosal jelly (11 mL urethral Given 08/08/24 0414) cefTRIAXone (ROCEPHIN) 1 g in sterile water 10 mL IV syringe (1 g intravenous Given 08/08/24 0703) LORazepam (ATIVAN) tablet 1 mg (1 mg oral Given 08/08/24 1451) ED Course as of 08/08/242326 Tue Aug 08, 2024 0322 Initial labs reviewed show a leukocytosis to 19.6, renal function of 34/3.70. Per review of previous documentation his baseline creatinine is 2.7- 3.3, his outpatient php architect is Dr. Green. Has been unable to provide urine sample thus far, will BladderScan. Chest x-ray and noncontrast CT as well as blood cultures and lactic have been added on. Will attempt to obtain urine sample, if he is unable to provide will BladderScan. [LQ] 3257 Bladder scan reveals greater than 350 cc of urine, he was only able to produce about 5 cc. Wilson catheter will be placed. [LQ] 0404 Patient is refusing Wilson catheter placement. He states he will allow for straight cath, however has too many things hanging from my body already [LQ] [address] without any acute concerning findings. Urinalysis is still pending. [LQ] 0637 Urinalysis has large leuk esterase, protein and 928.4 WBCs. He will be treated with a dose of IV antibiotics and will require antibiotics at discharge. [LQ] 0639 Patient to be signed out to oncoming provider pending PT and social service evaluation, ultimate disposition [LQ] 0756 Patient signed out to me at end of shift transfer of care. Generalized weakness. Chronic recurrent UTI. Otherwise there does not appear to be any acute medical issues. Patient is pending subacute case management evaluation [MC] 1232 This patient was signed out to me as a subacute. I reviewed the chart. The patient's last creatinine was 2.7 and is now 3.7. The bicarb is quite low at 16, and I suspect metabolic acidosis. The patient has grossly infected urine with moderate to severe hydronephrosis on CT scan and a white blood cell count of almost 20,000. Refused Wilson catheter with 350 residual urine retention. This can be repeated. I added on a VBG. The patient has been treated with IV Rocephin. This patient will require admission for multiple medical problems. [MC] ED Course User Index [LQ] DEEPA Juan [MC] Alex Rose DO Clinical Impressions as of 08/08/24 2327 Weakness of both lower extremities Acute cystitis without hematuria Hydronephrosis, unspecified hydronephrosis type Leukocytosis, unspecified type Metabolic acidosis Acute renal failure superimposed on chronic kidney disease, unspecified acute renal failure type, unspecified CKD stage ([facility]) 08/08/2024 1:52 AM patient seen and evaluated, vitals reviewed, lab work urinalysis are pending. Differential to include generalized weakness, failure to thrive, UTI, ARIS, electrolyte abnormality, dehydration, rhabdomyolysis Pending remainder of medical workup anticipate the patient may require PT and social service evaluation if no indication for admission to the hospital Procedures Procedures Diagnosis 1. Weakness of both lower extremities 2. Acute cystitis without hematuria 3. Hydronephrosis, unspecified hydronephrosis type 4. Leukocytosis, unspecified type 5. Metabolic acidosis 6. Acute renal failure superimposed on chronic kidney disease, unspecified acute renal failure type, unspecified CKD stage ([facility]) Disposition Admit to Inpatient ED Prescriptions None Physician Attestation The PA has seen, evaluated, and treated the patient. I, Dr. Crawford, have reviewed the record and agree with the documentation as written, except as noted. MD Gilda Kramer PA 08/08/24 0212 DEEPA Juan 08/08/24 0640 Jamie Crawford MD 08/08/24 5368 documented in this encounter H&P Notes * DEEPA Elizalde - 08/08/2024 3:58 PM EST Images from the original note were not included. [facility] HIST[facility] PHYS[facility] Patient: Brina Whyte Admission Date/Time: 08/08/2024 12:54 AM : 1950 73 y.o. Patient's PCP: No Pcp Physician Attending Provider: Christel Ivey MD CHIEF COMPLAINT I was walking to the bathroom and my legs gave out. HISTORY OF PRESENT ILLNESS 73-year-old male with a history of CAD, CKD, ARASELI, ulcerative colitis and further history as noted below presented to the emergency room with generalized weakness. He reported a fall stating he was unable to get himself up off the ground. Noted over the last couple years his legs give out on him from time to time. He noted ambulating at baseline with a walker. He denied any head injury and/or lossof consciousness. CBC revealed a white blood cell count of 19.6. BMP revealed a chloride of 111. CO2 of 16. BUN 34. Creatinine 3.70. GFR 17. Urinalysis revealed large leukocyte esterase, 928 WBC, 5.8 RBC, CT abdomen and pelvis revealed no acute traumatic abnormalities. Moderate to severe right hydroureteronephrosis without evidence of obstructing calculus or mass. Right renal cyst. Status post total colectomy. Area of scarring related to the region of the rectosigmoid and presacral region. There is central low- attenuation soft tissue and a small gas pocket. This may contain complex fluid. An abscess is not excluded. Chronic adjacent bony changes. Consider obtaining a contrast examination. Mild bladder wall thickening and trabeculation may indicate evidence of chronic outlet obstruction. Right lower quadrant ileostomy??? Please see full report Chest x-ray revealed no acute findings??? Please see full report At present time patient states that his legs gave out and he fell. He reports feeling weak and unwell. He is overall vague regarding his symptoms. Review of Systems As per HPI. Other 10 point review of systems is negative. MEDICAL HISTORY Past Medical History Coronary artery disease Hyperlipidemia Ulcerative colitis Peripheral vascular disease with claudication Chronic kidney disease stage IV Obstructive uropathy Urinary retention Creation of ostomy Obstructive sleep apnea Depression with anxiety Anemia Past Surgical History Total colectomy with ileostomy Bilateral shoulder surgery Cardiac stent Social History Lives alone. At baseline ambulates with a cane and/or rolling walker. Denies any tobacco or alcoholuse. Healthcare proxy is Alison [phone]. CODE STATUS discussed with the patient and he is a DNR/DNI. Family History Patient unable to provide any significant history, notes parents in their 60s. Allergies Lactose Home Medications As per pharmacist reconciliation with [facility]. Ascorbic acid 1000 mg daily Aspirin 81 mg daily Atorvastatin 40 mg daily Bupropion XL 450 mg daily Vitamin D3 50 mcg daily Duloxetine 60 mg daily Finasteride 5 mg daily Gabapentin 200 mg at bedtime Isosorbide mononitrate 60 mg daily Lorazepam 1 mg 3 times daily as needed anxiety Methenamine hippurate 1 g daily Prilosec 20 mg daily Sodium bicarbonate 650 mg twice daily Trazodone 200 mg at bedtime OBJECTIVE Vitals Visit Vitals BP (!) 129/97 (BP Location: Left arm, Patient Position: Sitting) Pulse 95 Temp 36.2 ??C (97.2 ??F) (Oral) Resp 18 Temp (24hrs), Av.6 ??C (97.8 ??F), Min:36.2 ??C (97.1 ??F), Max:36.8 ??C (98.2 ??F) Body mass index is 28.7 kg/m??. No results found for: PTWT , PTHT PHYSICAL EXAM: General: 73-year-old male lying semierect in no acute distress. He is alert and oriented able to answer questions and follow commands appropriately. HEENT: Pupils are equal, round and reactive to light. No facial asymmetry. Mucous membranes moist. Cardiovascular: S1S2, no murmur appreciated. Lungs: Clear to auscultation bilaterally. No wheezing, rhonchi and or rales. Abdomen: Right ileostomy noted with liquid stool. Surrounding skin with erythema and edema notable excoriations. Positive bowel sounds, soft, nontender without rebound and or guarding. Extremities: No erythema and/or edema. Active range of motion all 4 extremities. Cranial Nerves: II through XII grossly intact. LAB RESULTS (most recent) HEMATOLOGY Lab Results Component Value Date WBC 19.6 (H) 08/08/2024 HGB 13.6 08/08/2024 HCT 41.9 (L) 08/08/2024 MCV 93.3 08/08/2024 PLT 208 08/08/2024 CHEMISTRY Lab Results Component Value Date GLUCOSE 114 (H) 08/08/2024 NA 135 08/08/2024 K 4.7 08/08/2024 CO2 19 (L) 08/08/2024 CL 111 (H) 08/08/2024 BUN 33 (H) 08/08/2024 CREATININE 3.87 (H) 08/08/2024 EGFR 16 (L) 08/08/2024 CALCIUM 9.0 08/08/2024 MG 2.2 08/08/2024 ANIONGAP 5 08/08/[address] Abdomen Pelvis wo Contrast Final Result 1. No acute traumatic abnormalities. 2. Moderate [...] by: Lobo Bailey MD on 08/08/2024 05:25:28 XR Chest 1 View Final Result No acute findings. -------- FINAL REPORT -------- Dictated By: Sam Devi Dictated Date: 08/08/2024 08:03 ET Assigned Physician: Sam Devi Reviewed and Electronically Signed By: Sam Devi Signed Date: 08/08/2024 08:04 ET Workstation ID: [id number] Transcribed By: Self Edit Transcribed Date: 08/08/2024 08:03 ET ASSESSMENT & PLAN Acute kidney injury on chronic kidney disease stage stage IV Moderate to severe right hydroureteronephrosis Cystitis BUN 34. Creatinine 3.7. GFR 17. On 03/2024 BUN 25. Creatinine 2.7. GFR 24. - Admit. - Continue ceftriaxone pending urine culture and sensitivities. - Treat with IV fluids and repeat labs. - Check postvoid residuals. - Patient followed by urologist Dr. Jasso at [facility]. - Nephrology consult. Abdominal wall cellulitis Ulcerative colitis status post total colectomy with end ileostomy Patient with erythema, edema and increased warmth around ileostomy. - Antibiotics as noted above. - Ostomy nurse consultation. Coronary artery disease Hyperlipidemia -On aspirin, a atorvastatin, isosorbide mononitrate. Depression with anxiety - On bupropion XL, duloxetine, trazodone and lorazepam. Generalized weakness Impaired function mobility and ADLs - Physical therapy evaluation and social service consultation as patient may require inpatient versus outpatient rehabilitation services. DVT prophylaxis - Heparin. CODE STATUS: DNR/DNI as per discussion with patient. Healthcare proxy Alison [phone]. I offered to call but he states that she is aware of his admission. Associated attestation - Christel Ivey MD - 08/14/2024 10:18 AM EST This is a split/shared visit with DEEPA Elizalde. I personally performed the medical decision making (MDM) for the care of this patient on 08/08/24 asdocumented below 73-year-old male with history of coronary artery disease, chronic kidney disease, obstructive sleepapnea and ulcers colitis currently presents with generalized weakness. He has significant leukocytosis as well as slightly elevated BNP. He has acute kidney injury with creatinine of 3.71. I reviewed CT of abdomen pelvis which shows hydro ureter on the right but there is no evidence of obstructing mass or calculus. This could be stricture based. After discussion with the emergency room team final decision has been made to admit the patient foracute on chronic kidney disease due to severe right hydroureteronephrosis. Also empiric antibiotic treatment pending urine culture and sensitivities. He does have abdominal wall cellulitis around ileostomy and I do agree with antibiotics that will cover skin bacteria. Patient does not have any symptoms in sacral pelvic area. My impression is that the small pocket of air in presacral area is probably due to scarring Chronic management as above Christel Ivey MD 08/14/24 10:14 AM EST documented in this encounter Consult Notes * Conrado Loera MD - 08/10/2024 12:24 PM EST Images from the original note were not included. Progress Note CHIEF COMPLAINT F/u regarding ARIS superimposed on CKD SUBJECTIVE Patient seen and examined MEDICAL HISTORY Past Medical History: Diagnosis Date Anemia Anxiety CAD (coronary artery disease) CKD (chronic kidney disease) stage 4, GFR 15-29 ml/min (CMS/HCC) Depression Hypercholesteremia Ulcerative colitis (CMS/HCC) MEDICATIONS ascorbic acid, 1,000 mg, oral, Daily aspirin, 81 mg, oral, Daily atorvastatin, 40 mg, oral, Daily buPROPion XL, 450 mg, oral, Daily cefepime, 1 g, intravenous, q24h cholecalciferol, 2,000 Units, oral, Daily DULoxetine, 60 mg, oral, Daily finasteride, 5 mg, oral, Daily gabapentin, 200 mg, oral, Nightly heparin (porcine), 5,000 Units, subcutaneous, q12h SETH isosorbide mononitrate, 60 mg, oral, Daily methenamine hippurate, 1 g, oral, Daily pantoprazole, 40 mg, oral, q AM AC sodium bicarbonate, 650 mg, oral, BID traZODone, 200 mg, oral, Nightly vancomycin, 1,250 mg, intravenous, q48h PRN medications: acetaminophen, LORazepam OBJECTIVE Vital signs in last 24 hours: Visit Vitals BP 119/68 (BP Location: Left arm, Patient Position: Lying) Pulse 97 Temp 36.6 ??C (97.9 ??F) (Temporal) Resp 18 Intake/Output last 24 hours: Intake/Output Summary (Last 24 hours) at 08/10/2024 1225 Last data filed at 08/10/2024 1000 Gross per 24 hour Intake 3231.67 ml Output 2950 ml Net 281.67 ml Weights: Admission Weight: Weight: 90.7 kg (200 lb) Wt Readings from Last 3 Encounters: 08/08/24 90.7 kg (200 lb) Physical Exam: General: No acute distress HEENT: Normocephalic, atraumatic, anicteric Cardiovascular: S1 S2 normal Respiratory: unlabored Gl: soft non-distended Extremities: No cyanosis Neurological: Alert Integumentary: no rash Psych: Calm, cooperative LABS Results from last 7 days Lab Units 08/10/24 0540 08/09/24 0639 08/08/24 0125 WBC AUTO K/mcL 11.8* 12.4* 19.6* HEMOGLOBIN g/dL 10.8* 11.7* 13.6 HEMATOCRIT % 34.0* 36.8* 41.9* MCV FL 92.9 91.5 93.3 PLATELETS K/mcL 202 211 208 Results from last 7 days Lab Units 08/10/24 0540 08/09/24 0639 08/08/24 1341 CREATININE mg/dL 3.18* 3.67* 3.87* BUN mg/dL 25 30* 33* SODIUM mmol/L 139 138 135 POTASSIUM mmol/L 3.7 4.1 4.7 CHLORIDE mmol/L 113* 114* 111* CO2 mmol/L 19* 19* 19* No results found for: PHOS , [id number] , PTH , PUR No results found for: IRON , TIBC , FERRITIN No results found for: COLORUA , CLARITYUA , SPECGRAVUA , PHUA , PROTUA , GLUCOSEUA , KETONESUA , BILIRUBINUA , BLOODUA , UROBILINOGUA , NITRITEUA IMPRESSION and PLAN Acute kidney injury. Acute kidney injury as patient likely secondary severe prerenal state. He looks prerenal/dehydrated Patient could also have a competent of renal hypoperfusion/acute tubular injury in the setting of UTI/sepsis. He has obstruction of the right side but this seems to be an old finding as per the medical team. 2. CKD stage IV at baseline with a baseline creatinine around 2.5-3.0 3. UTI Patient has history of recurrent UTI, pseudomonal UTIs in the past. Urine culture growing less than10,000 CFU gram-positive cocci. Due to history of Pseudomonas UTI 4. Right hydronephrosis As per medical team patient is followed by Dr. Jasso ([facility] urologist) who attempted to call but was not successful. However, I reviewed previous records from [facility] and hydronephrosis is not new finding, has been present since 2022. Right renal cyst is also a known finding. 5. Bacteremia Blood culture x 1 growing gram-positive bacilli. Patient is on empiric IV cefepime. He did receive vancomycin. Could be contaminant. I will repeat blood culture. 6. Abdominal wall cellulitis Patient reportedly had some increased warmth and edema surrounding the ostomy. I have not noticed any skin change. I doubt cellulitis. Urine sodium is low with low fractional excretion of sodium pointing towards prerenal state Will reorder IV fluids with LR x 2 more liters Avoid all nephrotoxins Follow Vanco level Continue antibiotics Suggest urology evaluation regarding right-sided hydro If sepsis/UTI does not resolve then we should consider right-sided kidney as a source of infection Continue sodium bicarb p.o. Follow-up renal function in a.m. Conrado Loera MD * Idalia Hill RD - 08/10/2024 11:47 AM ESTAssociated Order(s): IP CONSULT TO NUTRITION SERVICES 08/10/2024 @ 11:48 AM EST Nutrition Consult Note/Nutrition Assessment Reason for RD Intervention: Assessment Type: Provider Consult Reason for Assessment: Other (Comment) (supplements) Anthropometrics: Height: 177.8 cm (70 ) Weight: 90.7 kg (200 lb) BMI (Calculated): 28.7 BMI Class: Overweight IBW (lbs): 166 Recent Weight Change: No Current Diet and Supplements: Dietary Orders (From admission, onward) Start Ordered 08/08/[address] [facility]; General, Cardiac, Bariatric/GI; Regular;Cardiac; Lactose Controlled Diet effective now Question Answer Comment Location [facility] Diet Type (req) General Diet Type (req) Cardiac Diet Type (req) Bariatric/GI General Diet Regular Diet Type (cardiac) Cardiac Bariatric/GI Lactose Controlled 08/08/24 1638 History of presenting illness: Patient is a 73 y.o. male with a history of Past Medical History: Diagnosis Date Anemia Anxiety CAD (coronary artery disease) CKD (chronic kidney disease) stage 4, GFR 15-29 ml/min (CMS/HCC) Depression Hypercholesteremia Ulcerative colitis (CMS/HCC) Past Surgical History: Procedure Laterality Date CORONARY STENT PLACEMENT ILEOSTOMY SHOULDER SURGERY Bilateral TOTAL COLECTOMY admitted 08/08/2024 with Hydronephrosis. Food/Nutrition History: Limited interview, pt sleeping and only able to wake briefly to answer questions. Pt denies weight loss, states usual body weight of 200 lbs. No recorded weight history in EMR. Denies any changes in appetite. Pt lactose intolerant, can sometimes tolerate cheese. Weight History: Wt Readings from Last 10 Encounters: 08/08/24 90.7 kg (200 lb) Subjective Assessment: Pt admitted after fall with UTI, hydronephrosis, bacteremia. Pt has ileostomy, 400 ml stool noted today. Per RN pt consumed most of breakfast this am, pt states appetite has been good since admission. Nutrition-Related Lab Values: Results from last 7 days Lab Units 08/10/24 0540 08/08/24 1341 08/08/24 0125 SODIUM mmol/L 139 < > 135 POTASSIUM mmol/L 3.7 < > 4.4 MAGNESIUM mg/dL -- -- 2.2 CHLORIDE mmol/L 113* < > 111* CO2 mmol/L 19* < > 16* BUN mg/dL 25 < > 34* CREATININE mg/dL 3.18* < > 3.70* EGFR mL/min/1.73m2 20* < > 17* CALCIUM mg/dL 8.3* < > 8.5 GLUCOSE mg/dL 113* < > 86 WBC AUTO K/mcL 11.8* < > 19.6* < > = values in this interval not displayed. Medications: ascorbic acid, 1,000 mg, oral, Daily aspirin, 81 mg, oral, Daily atorvastatin, 40 mg, oral, Daily buPROPion XL, 450 mg, oral, Daily cefepime, 1 g, intravenous, q24h cholecalciferol, 2,000 Units, oral, Daily DULoxetine, 60 mg, oral, Daily finasteride, 5 mg, oral, Daily gabapentin, 200 mg, oral, Nightly heparin (porcine), 5,000 Units, subcutaneous, q12h SETH isosorbide mononitrate, 60 mg, oral, Daily methenamine hippurate, 1 g, oral, Daily pantoprazole, 40 mg, oral, q AM AC sodium bicarbonate, 650 mg, oral, BID traZODone, 200 mg, oral, Nightly vancomycin, 1,250 mg, intravenous, q48h CONTINUOUS: PRN medications: acetaminophen, LORazepam Food/Nutrition-Current Status: Intake Type: P.O. Appetite: Good Intake Amount (%): Unable to Assess Intake Assessment: Unable to Assess Main IVF: LR Main IVF Rate (mL/hr): 100 Barriers: Other (Comment) (sleeping) Nutrition Focused Physical Findings: Overall Appearance: Pt sleeping, only able to give brief answers to questions. Moderate orbital fatloss and muscle loss to clavicle area noted from bedside. Nerves and Cognition: Somnolent Skin: no wounds noted Nutrition Diagnosis: Code Type: None Identified Diagnosis: No Acute Nutrition Dx Nutrition Interventions: Diet Order Continue current diet. Follow po intakes, add supplements if po intakes <65%. Attempt to obtain history on follow if pt more awake. Diet Order: Other (Comment) (Cardiac, Lactose Controlled) Goals: Patient will consume greater than or equal to 75% meals., Maintain weight., Stooling appropriately., and Maintain skin integrity. Coordination of Patient Care: Discussed with RN via Epic Secure Chat/Haiku. and Care plan discussed with patient/family. Monitoring/Evaluation: Food Intake, Weight Follow Up: Nutrition Priority Level: Moderate Follow up Date: Please consult nutrition if needed sooner. RD remains available and will continue to follow. Signature: Idalia Hill RD * Conrado Loera MD - 08/09/2024 11:52 AM EST Images from the original note were not included. Reason for Consultation: ARIS History of Present Illness: 73-year-old male with a history of CAD, CKD, ARASELI, ulcerative colitis and further history as noted below presented to the emergency room with generalized weakness. He reported a fall stating he was unable to get himself up off the ground. Noted over the last couple years his legs give out on him from time to time. He noted ambulating at baseline with a walker. He denied any head injury and/or lossof consciousness. Lab work in the ER CBC revealed a white blood cell count of 19.6. BMP revealed a chloride of 111. CO2 of 16. BUN 34. Creatinine 3.70. GFR 17. Urinalysis revealed large leukocyte esterase, 928 WBC, 5.8 RBC, CT abdomen and pelvis revealed no acute traumatic abnormalities. Moderate to severe right hydroureteronephrosis without evidence of obstructing calculus or mass. Right renal cyst. Status post total colectomy. Area of scarring related to the region of the rectosigmoid and presacral region. There is central low- attenuation soft tissue and a small gas pocket. This may contain complex fluid. An abscess is not excluded. Chronic adjacent bony changes. Consider obtaining a contrast examination. Mild bladder wall thickening and trabeculation may indicate evidence of chronic outlet obstruction. Right lower quadrant ileostomy??? Please see full report Chest x-ray revealed no acute findings??? Patient is very sleepy and not giving a good history. He denies having any chest pain or shortness of breath SUBJECTIVE Review of Systems General: Denies fever or chills. Lungs: Denies cough, shortness of breath, chest congestion. Heart: Denies chest pain, palpitations, orthopnea, dyspnea on exertion, or edema. Abdomen: Denies change in appetite, nausea, vomiting, diarrhea, or constipation, or abdominal pain. : Denies hesitancy, frequency, burning with urination, or blood in urine. Musculoskeletal: Denies muscle pain or weakness, denies any joint swelling. Skin: Denies skin changes, rashes, or open lesions. Past Medical History: Diagnosis Date ??? Anemia ??? Anxiety ??? CAD (coronary artery disease) ??? CKD (chronic kidney disease) stage 4, GFR 15-29 ml/min (CMS/HCC) ??? Depression ??? Hypercholesteremia ??? Ulcerative colitis (CMS/HCC) Past Surgical History: Procedure Laterality Date ??? CORONARY STENT PLACEMENT ??? ILEOSTOMY ??? SHOULDER SURGERY Bilateral ??? TOTAL COLECTOMY Social History Socioeconomic History ??? Marital status: Single Spouse name: Not on file ??? Number of children: Not on file ??? Years of education: Not on file ??? Highest education level: Not on file Occupational History ??? Not on file Tobacco Use ??? Smoking status: Never ??? Smokeless tobacco: Never Substance and Sexual Activity ??? Alcohol use: Not Currently ??? Drug use: Not Currently ??? Sexual activity: Not Currently Other Topics Concern ??? Not on file Social History Narrative ??? Not on file No family history on file. Home Medications ascorbic acid (VITAMIN C) 1,000 mg tablet Take 1 tablet (1,000 mg total) by mouth 1 (one) time eachday. aspirin 81 mg EC tablet Take 1 tablet (81 mg total) by mouth daily. atorvastatin (LIPITOR) 40 mg tablet Take 1 tablet (40 mg total) by mouth 1 (one) time each day. buPROPion XL (WELLBUTRIN XL) 150 mg 24 hr tablet Take 3 tablets (450 mg total) by mouth 1 (one) time each day. cholecalciferol (VITAMIN D-3) 50 mcg (2,000 unit) capsule Take 1 capsule (2,000 Units total) by mouth 1 (one) time each day. DULoxetine (CYMBALTA) [address] capsule Take 1 capsule (60 mg total) by mouth daily. finasteride (PROSCAR) 5 mg tablet Take 1 tablet (5 mg total) by mouth 1 (one) time each day. Do notcrush, chew, or split. gabapentin (NEURONTIN) 100 mg capsule Take 2 capsules (200 mg total) by mouth at bedtime. isosorbide mononitrate (IMDUR) 60 mg 24 hr tablet Take 1 tablet (60 mg total) by mouth 1 (one) timeeach day. LORazepam (ATIVAN) 1 mg tablet Take 1 tablet (1 mg total) by mouth 2 (two) times a day if needed for anxiety. methenamine hippurate (HIPREX) 1 gram tablet Take 1 tablet (1 g total) by mouth 1 (one) time each day. omeprazole (PriLOSEC) [address] capsule Take 1 capsule (20 mg total) by mouth daily. sodium bicarbonate 650 mg tablet Take 1 tablet (650 mg total) by mouth 2 (two) times a day. traZODone (DESYREL) 100 mg tablet Take 2 tablets (200 mg total) by mouth at bedtime. Allergies: Milk Containing Products (Dairy) Current Medications: ascorbic acid, 1,000 mg, oral, Daily aspirin, 81 mg, oral, Daily atorvastatin, 40 mg, oral, Daily buPROPion XL, 450 mg, oral, Daily cefTRIAXone, 1 g, intravenous, q24h cholecalciferol, 2,000 Units, oral, Daily DULoxetine, 60 mg, oral, Daily finasteride, 5 mg, oral, Daily gabapentin, 200 mg, oral, Nightly heparin (porcine), 5,000 Units, subcutaneous, q12h SETH isosorbide mononitrate, 60 mg, oral, Daily methenamine hippurate, 1 g, oral, Daily pantoprazole, 40 mg, oral, q AM AC sodium bicarbonate, 650 mg, oral, BID traZODone, 200 mg, oral, Nightly lactated Ringer's, 100 mL/hr, Last Rate: 100 mL/hr (08/09/24 0920) PRN medications: acetaminophen, LORazepam OBJECTIVE Physical Exam: Current Vitals: Blood pressure 113/67, pulse 93, temperature 36.5 ??C (97.7 ??F), temperature source Temporal, resp. rate 19, height 1.778 m (70 ), weight 90.7 kg (200 lb), SpO2 94%. Intake/Output: I/O last 3 completed shifts: In: 500 (5.5 mL/kg) [I.V.:500 (5.5 mL/kg)] Out: 825 (9.1 mL/kg) [Urine:700 (0.2 mL/kg/hr); Emesis/NG output:125] Weight: 90.7 kg General : Lying comfortably in bed in no acute distress HEENT: Normocephalic, sclerae anicteric, buccal mucosa moist no oral lesions Neck: Supple, symmetrical, trachea midline, no JVD Lungs: Clear to auscultation bilaterally, respirations unlabored Chest wall: No tenderness or deformity Heart: Regular rate and rhythm. No murmurs. No JVD. No hepatojugular reflux. Abdomen: Soft, non-tender, bowel sounds active all four quadrants. Extremities: Extremities normal, atraumatic, no cyanosis or edema Pulses: 2+ and symmetric all extremities Skin: Skin warm, dry, and intact with no visible rashes, petechia, or icterus. Neurologic: Awake, alert, appropriate. No overt focal deficits. Laboratory Data: Urine No results found for: COLORUA , CLARITYUA , SPECGRAVUA , PHUA , PROTUA , GLUCOSEUA , KETONESUA , BILIRUBINUA , BLOODUA , UROBILINOGUA , NITRITEUA No results found for: MICROALBUR , [id number] CBC Results from last 7 days Lab Units 08/09/24 0639 08/08/24 0125 WBC AUTO K/mcL 12.4* 19.6* HEMOGLOBIN g/dL 11.7* 13.6 HEMATOCRIT % 36.8* 41.9* PLATELETS K/mcL 211 208 CMP Results from last 7 days Lab Units 08/09/24 0639 08/08/24 1341 08/08/24 0125 SODIUM mmol/L 138 135 135 POTASSIUM mmol/L 4.1 4.7 4.4 CHLORIDE mmol/L 114* 111* 111* CO2 mmol/L 19* 19* 16* BUN mg/dL 30* 33* 34* CREATININE mg/dL 3.67* 3.87* 3.70* EGFR mL/min/1.73m2 17* 16* 17* GLUCOSE mg/dL 80 114* 86 CALCIUM mg/dL 8.3* 9.0 8.5 Anemia MBD No results found for: IRON , TIBC , FERRITIN Lab Results Component Value Date CALCIUM 8.3 (L) 08/09/2024 ASSESSMENT AND PLAN Acute kidney injury. Acute kidney injury as patient likely secondary severe prerenal state. He looks prerenal/dehydrated Patient could also have a competent of renal hypoperfusion/acute tubular injury in the setting of UTI/sepsis. He has obstruction of the right side but this seems to be an old finding as per the medical team. 2. CKD stage IV at baseline with a baseline creatinine around 2.5-3.0 3. UTI Patient has history of recurrent UTI, pseudomonal UTIs in the past. Urine culture growing less than10,000 CFU gram-positive cocci. Due to history of Pseudomonas UTI 4. Right hydronephrosis As per medical team patient is followed by Dr. Jasso ([facility] urologist) who attempted to call but was not successful. However, I reviewed previous records from [facility] and hydronephrosis is not new finding, has been present since 2022. Right renal cyst is also a known finding. 5. Bacteremia Blood culture x 1 growing gram-positive bacilli. Patient is on empiric IV cefepime. He did receive vancomycin. Could be contaminant. I will repeat blood culture. 6. Abdominal wall cellulitis Patient reportedly had some increased warmth and edema surrounding the ostomy. I have not noticed any skin change. I doubt cellulitis. Urine sodium is low with low fractional excretion of sodium pointing towards prerenal state Agree with continuation of IV fluids with LR Avoid all nephrotoxins Follow Vanco level Continue antibiotics If renal function does not improve needs urology evaluation If sepsis/UTI does not resolve then we should consider right-sided kidney as a source of infection Continue sodium bicarb p.o. Follow-up renal function in a.m. -Dose all mediations for appropriate eGFR Thank you again for the consultation on your patient, we will be happy to follow along with you. documented in this encounter Plan of Treatment Not on file documented as of this encounter Procedures Procedure Name Priority Date/Time Associated Diagnosis Comments CULTURE BLOOD Routine 08/11/2024 7:26 AM EST BASIC METABOLIC PANEL Routine 08/11/2024 7:26 AM EST EXTRA TUBES Routine 08/11/2024 7:16 AM EST LAVENDER - EDTA Routine 08/11/2024 7:16 AM EST CULTURE BLOOD Routine 08/10/2024 5:45 AM EST COMPLETE BLOOD COUNT Routine 08/10/2024 5:40 AM EST BASIC METABOLIC PANEL Routine 08/10/2024 5:40 AM EST ECG 12-LEAD Routine 08/09/2024 3:07 PM EST COMPLETE BLOOD COUNT Routine 08/09/2024 6:39 AM EST BASIC METABOLIC PANEL Routine 08/09/2024 6:39 AM EST SODIUM, URINE, RANDOM STAT 08/08/2024 4:54 PM EST PROTEIN, URINE, RANDOM Routine 08/08/2024 4:54 PM EST CREATININE, URINE, RANDOM STAT 08/08/2024 4:54 PM EST BASIC METABOLIC PANEL STAT 08/08/2024 1:41 PM EST EXTRA TUBES Routine 08/08/2024 1:20 PM EST LAVENDER - EDTA Routine 08/08/2024 1:20 PM EST VENOUS BLOOD GAS STAT 08/08/2024 1:20 PM EST BLOOD CULTURE PATHOGENS BY PCR Routine 08/08/2024 6:53 AM EST CULTURE BLOOD STAT 08/08/2024 6:53 AM EST CULTURE BLOOD STAT 08/08/2024 6:53 AM EST LACTATE STAT 08/08/2024 6:[address] ABDOMEN PELVIS WO CONTRAST STAT 08/08/2024 4:56 AM EST URINALYSIS WITH REFLEX MICROSCOPIC AND CULTURE STAT 08/08/2024 4:44 AM EST PEPPER URINE CULTURE TUBE STAT 08/08/2024 4:44 AM EST URINALYSIS WITH REFLEX MICROSCOPIC AND CULTURE STAT 08/08/2024 4:44 AM EST CULTURE URINE STAT 08/08/2024 4:44 AM EST XR CHEST 1 VIEW STAT 08/08/2024 4:19 AM EST CBC WITH AUTO DIFFERENTIAL STAT 08/08/2024 1:25 AM EST CBC AND DIFFERENTIAL STAT 08/08/2024 1:25 AM EST MAGNESIUM STAT 08/08/2024 1:25 AM EST CREATINE KINASE STAT Add-on 08/08/2024 1:25 AM EST BASIC METABOLIC PANEL STAT 08/08/2024 1:25 AM EST ECG 12-LEAD STAT 08/08/2024 1:21 AM EST ECG ANNOTATED 08/08/2024 documented in this encounter Results * (ABNORMAL) Basic metabolic panel (08/11/2024 7:26 AM EST) Sodium 141 133 - 145 mmol/L LAB CHEMISTRY METHOD 08/11/2024 8:43 AM [facility] Potassium 3.8 3.5 - 5.5 mmol/L LAB CHEMISTRY METHOD 08/11/2024 8:43 AM [facility] Chloride 116(H) 96 - 110 mmol/L LAB CHEMISTRY METHOD 08/11/2024 8:43 AM [facility] CO2 20(L) 21 - 32 mmol/L LAB CHEMISTRY METHOD 08/11/2024 8:43 AM [facility] Anion Gap 5 3 - 11 LAB CHEMISTRY METHOD 08/11/2024 8:43 AM [facility] Glucose 100 70 - 100 mg/dL LAB CHEMISTRY METHOD 08/11/2024 8:43 AM [facility] BUN 19 5 - 25 mg/dL LAB CHEMISTRY METHOD 08/11/2024 8:43 AM [facility] Creatinine 3.16(H) 0.70 - 1.30 mg/dL LAB CHEMISTRY METHOD 08/11/2024 8:43 AM [facility] eGFR 20(L) >=60 mL/min/1. 73m2 LAB CHEMISTRY METHOD 08/11/2024 8:[address] [facility] Comment:Calculation based on the??Chronic Kidney Disease Epidemiology Collaboration (CKD-EPI) equation refit??without adjustment for race. BUN/Creatinine Ratio 6.0 LAB CHEMISTRY METHOD 08/11/2024 8:43 AM [facility] Calcium 8.6 8.5 - 10.5 mg/dL LAB CHEMISTRY METHOD 08/11/2024 8:43 AM [facility] Blood Venous blood specimen / Unknown Venipuncture / Unknown 08/11/2024 7:26 AM EST 08/11/2024 7:38 AM EST Jessie Butler MD LAB BLOOD ORDERABLES Performing Organization Address City/[facility]/ZIP Co de Phone Number [facility] [address] [place] [address], * Culture blood (08/11/2024 7:26 AM EST) Culture, Blood No growth at 5 days 08/16/2024 9:01 AM [facility] Blood Venous blood specimen / Unknown Venipuncture / Unknown 08/11/2024 7:26 AM EST 08/11/2024 7:48 AM EST Jessie Butler MD LAB MICROBIOLOGY - G ENERAL ORDERABLES [facility] [address] [place] [address], [place] [phone] * Lavender tube (08/11/2024 7:16 AM EST) Extra Tube Hold for add-ons. 08/11/2024 9:[address] [facility] Comment:Auto resulted. Blood Venous blood specimen / Unknown Venipuncture / Unknown 08/11/2024 7:16 AM EST 08/11/2024 7:43 AM EST Jessie Butler MD LAB BLOOD ORDERABLES [facility] [address] [place] [address], * Culture blood (08/10/2024 5:45 AM EST) Culture, Blood No growth at 5 days 08/15/2024 8:01 AM [facility] Blood Venous blood specimen / Unknown 08/10/2024 5:45 AM EST 08/10/2024 6:34 AM EST Jessie Butler MD LAB MICROBIOLOGY - G ENERAL ORDERABLES Performing Organization Address [facility]/ZIP Co de Phone Number [facility] [address] [place] [address], * (ABNORMAL) Basic metabolic panel (08/10/2024 5:40 AM EST) [facility] Sodium 139 133 - 145 mmol/L LAB CHEMISTRY METHOD 08/10/2024 7:31 AM [facility] Potassium 3.7 3.5 - 5.5 mmol/L LAB CHEMISTRY METHOD 08/10/2024 7:31 AM [facility] Chloride 113(H) 96 - 110 mmol/L LAB CHEMISTRY METHOD 08/10/2024 7:31 AM [facility] CO2 19(L) 21 - 32 mmol/L LAB CHEMISTRY METHOD 08/10/2024 7:31 AM [facility] Anion Gap 7 3 - 11 LAB CHEMISTRY METHOD 08/10/2024 7:31 AM [facility] Glucose 113(H) 70 - 100 mg/dL LAB CHEMISTRY METHOD 08/10/2024 7:31 AM [facility] BUN 25 5 - 25 mg/dL LAB CHEMISTRY METHOD 08/10/2024 7:31 AM [facility] Creatinine 3.18(H) 0.70 - 1.30 mg/dL LAB CHEMISTRY METHOD 08/10/2024 7:31 AM [facility] eGFR 20(L) >=60 mL/min/1. 73m2 LAB CHEMISTRY METHOD 08/10/2024 7:31 AM [facility] Comment:Calculation based on the??Chronic Kidney Disease Epidemiology Collaboration (CKD-EPI) equation refit??without adjustment for race. BUN/Creatinine Ratio 7.9 LAB CHEMISTRY METHOD 08/10/2024 7:31 AM [facility] Calcium 8.3(L) 8.5 - 10.5 mg/dL LAB CHEMISTRY METHOD 08/10/2024 7:31 AM [facility] Blood Venous blood specimen / Unknown 08/10/2024 5:40 AM EST 08/10/2024 6:35 AM EST Jessie Butler MD LAB BLOOD ORDERABLES [facility] [address] [place] [address], * (ABNORMAL) Complete blood count (08/10/2024 5:40 AM EST) WBC 11.8(H) 4.8 - 10.8 K/mcL LAB HEMETOLOGY METHOD 08/10/2024 7:04 AM [facility] RBC 3.70(L) 4.50 - 5.50 M/mcL LAB HEMETOLOGY METHOD 08/10/2024 7:04 AM [facility] Hemoglobin 10.8(L) 13.5 - 17.5 g/dL LAB HEMETOLOGY METHOD 08/10/2024 7:04 AM [facility] Hematocrit 34.0(L) 42.0 - 54.0 % LAB HEMETOLOGY METHOD 08/10/2024 7:[address] [facility] MCV 92.9 79.0 - 98.0 FL LAB HEMETOLOGY METHOD 08/10/2024 7:[address] [facility] MCH 29.5 27.0 - 32.0 pcg LAB HEMETOLOGY METHOD 08/10/2024 7:[address] [facility] MCHC 31.8(L) 32.0 - 37.0 g/dL LAB HEMETOLOGY METHOD 08/10/2024 7:[address] [facility] RDW 13.2 11.0 - 15.0 % LAB HEMETOLOGY METHOD 08/10/2024 7:[address] [facility] Platelets 202 130 - 400 K/mcL LAB HEMETOLOGY METHOD 08/10/2024 7:[address] [facility] MPV 10.3 7.0 - 11.0 FL LAB HEMETOLOGY METHOD 08/10/2024 7:[address] [facility] NRBC 0.0 <1.0 % LAB HEMETOLOGY METHOD 08/10/2024 7:04 AM [facility] NRBC Absolute 0.00 <0.10 K/mcL LAB HEMETOLOGY METHOD 08/10/2024 7:04 AM [facility] Blood Venous blood specimen / Unknown 08/10/2024 5:40 AM EST 08/10/2024 6:37 AM EST Jessie Butler MD LAB BLOOD ORDERABLES [facility] [address] [place] [address], * ECG 12 lead (08/09/2024 3:07 PM EST) Ventricular Rate ECG 90 BPM GEMUSE Atrial Rate 90 BPM GEMUSE P-R Interval 184 ms GEMUSE QRS Duration 86 ms GEMUSE Q-T Interval 382 ms GEMUSE QTc 467 ms GEMUSE P Wave [place] 56 degrees GEMUSE R [place] 11 degrees GEMUSE T [place] 55 degrees GEMUSE ECG Interpretation Normal sinus rhythm Normal ECG When compared with ECG of 08-AUG-2024 01:21, No significant change was found Confirmed by SYD PETE ([id number]) on 08/10/2024 10:57:32 AM GEMUSE 08/09/2024 3:07 PM EST 08/10/2024 10:57 AM EST Jessie Butler MD ECG ORDERABLES GEMUSE * (ABNORMAL) Complete blood count (08/09/2024 6:39 AM EST) WBC 12.4(H) 4.8 - 10.8 K/mcL LAB HEMETOLOGY METHOD 08/09/2024 7:57 AM [facility] RBC 4.00(L) 4.50 - 5.50 M/mcL LAB HEMETOLOGY METHOD 08/09/2024 7:57 AM [facility] Hemoglobin 11.7(L) 13.5 - 17.5 g/dL LAB HEMETOLOGY METHOD 08/09/2024 7:57 AM [facility] Hematocrit 36.8(L) 42.0 - 54.0 % LAB HEMETOLOGY METHOD 08/09/2024 7:57 AM [facility] MCV 91.5 79.0 - 98.0 FL LAB HEMETOLOGY METHOD 08/09/2024 7:57 AM [facility] MCH 29.1 27.0 - 32.0 pcg LAB HEMETOLOGY METHOD 08/09/2024 7:57 AM [facility] MCHC 31.8(L) 32.0 - 37.0 g/dL LAB HEMETOLOGY METHOD 08/09/2024 7:57 AM [facility] RDW 13.1 11.0 - 15.0 % LAB HEMETOLOGY METHOD 08/09/2024 7:[address] [facility] Platelets 211 130 - 400 K/mcL LAB HEMETOLOGY METHOD 08/09/2024 7:57 AM [facility] MPV 9.8 7.0 - 11.0 FL LAB HEMETOLOGY METHOD 08/09/2024 7:[address] [facility] NRBC 0.0 <1.0 % LAB HEMETOLOGY METHOD 08/09/2024 7:57 AM [facility] NRBC Absolute 0.00 <0.10 K/mcL LAB HEMETOLOGY METHOD 08/09/2024 7:57 AM [facility] Blood Venous blood specimen / Unknown Venipuncture / Unknown 08/09/2024 6:39 AM EST 08/09/2024 6:53 AM EST Christel Ivey MD LAB BLOOD ORDERABLES [facility] [address] [place] [address], * (ABNORMAL) Basic metabolic panel (08/09/2024 6:39 AM EST) Sodium 138 133 - 145 mmol/L LAB CHEMISTRY METHOD 08/09/2024 7:48 AM [facility] Potassium 4.1 3.5 - 5.5 mmol/L LAB CHEMISTRY METHOD 08/09/2024 7:48 AM [facility] Chloride 114(H) 96 - 110 mmol/L LAB CHEMISTRY METHOD 08/09/2024 7:48 AM [facility] CO2 19(L) 21 - 32 mmol/L LAB CHEMISTRY METHOD 08/09/2024 7:48 AM [facility] Anion Gap 5 3 - 11 LAB CHEMISTRY METHOD 08/09/2024 7:48 AM [facility] Glucose 80 70 - 100 mg/dL LAB CHEMISTRY METHOD 08/09/2024 7:48 AM [facility] BUN 30(H) 5 - 25 mg/dL LAB CHEMISTRY METHOD 08/09/2024 7:48 AM [facility] Creatinine 3.67(H) 0.70 - 1.30 mg/dL LAB CHEMISTRY METHOD 08/09/2024 7:48 AM [facility] eGFR 17(L) >=60 mL/min/1. 73m2 LAB CHEMISTRY METHOD 08/09/2024 7:48 AM [facility] Comment:Calculation based on the??Chronic Kidney Disease Epidemiology Collaboration (CKD-EPI) equation refit??without adjustment for race. BUN/Creatinine Ratio 8.2 LAB CHEMISTRY METHOD 08/09/2024 7:48 AM [facility] Calcium 8.3(L) 8.5 - 10.5 mg/dL LAB CHEMISTRY METHOD 08/09/2024 7:48 AM [facility] Blood Venous blood specimen / Unknown Venipuncture / Unknown 08/09/2024 6:39 AM EST 08/09/2024 6:53 AM EST Christel Ivey MD LAB BLOOD ORDERABLES Performing Organization Address City/[facility]/ZIP Co de Phone Number [facility] [address] [place] [address], * Protein, urine, random (08/08/2024 4:54 PM EST) Protein, Urine 121 mg/dL LAB CHEMISTRY METHOD 08/08/2024 6:[address] [facility] Urine Urine specimen from urethra / Unknown Non-blood Collection / Unknown 08/08/2024 4:54 PM EST 08/08/2024 5:12 PM EST Christel Ivey MD LAB URINE ORDERABLES Performing Organization Address City/State/[facility] de Phone Number [facility] [address] [place] [address], * Creatinine, urine, random (08/08/2024 4:54 PM EST) Creatinine, Urine 193.0 mg/dL LAB CHEMISTRY METHOD 08/08/2024 6:[address] [facility] Urine Urine specimen from urethra / Unknown Non-blood Collection / Unknown 08/08/2024 4:54 PM EST 08/08/2024 5:12 PM EST Brenda ARENAS LAB URINE ORDERABLES Performing Organization Address [facility] de Phone Number [facility] [address] [place] [address], [place] [phone] * Sodium, urine, random (08/08/2024 4:54 PM EST) Sodium, Ur 25 mmol/L LAB CHEMISTRY METHOD 08/08/2024 6:[address] [facility] Urine Urine specimen from urethra / Unknown Non-blood Collection / Unknown 08/08/2024 4:54 PM EST 08/08/2024 5:12 PM EST Brenda ARENAS LAB URINE ORDERABLES Performing Organization Address [facility] de Phone Number [facility] [address] [place] [address], [place] [phone] * (ABNORMAL) Basic metabolic panel (08/08/2024 1:41 PM EST) Sodium 135 133 - 145 mmol/L LAB CHEMISTRY METHOD 08/08/2024 2:[address] [facility] Potassium 4.7 3.5 - 5.5 mmol/L LAB CHEMISTRY METHOD 08/08/2024 2:[address] [facility] Chloride 111(H) 96 - 110 mmol/L LAB CHEMISTRY METHOD 08/08/2024 2:[address] [facility] CO2 19(L) 21 - 32 mmol/L LAB CHEMISTRY METHOD 08/08/2024 2:25 PM [facility] Anion Gap 5 3 - 11 LAB CHEMISTRY METHOD 08/08/2024 2:25 PM [facility] Glucose 114(H) 70 - 100 mg/dL LAB CHEMISTRY METHOD 08/08/2024 2:25 PM [facility] BUN 33(H) 5 - 25 mg/dL LAB CHEMISTRY METHOD 08/08/2024 2:25 PM [facility] Creatinine 3.87(H) 0.70 - 1.30 mg/dL LAB CHEMISTRY METHOD 08/08/2024 2:25 PM [facility] eGFR 16(L) >=60 mL/min/1. 73m2 LAB CHEMISTRY METHOD 08/08/2024 2:[address] [facility] Comment:Calculation based on the??Chronic Kidney Disease Epidemiology Collaboration (CKD-EPI) equation refit??without adjustment for race. BUN/Creatinine Ratio 8.5 LAB CHEMISTRY METHOD 08/08/2024 2:25 PM [facility] Calcium 9.0 8.5 - 10.5 mg/dL LAB CHEMISTRY METHOD 08/08/2024 2:[address] [facility] Blood Venous blood specimen / Unknown Venipuncture / Unknown 08/08/2024 1:41 PM EST 08/08/2024 1:59 PM EST Christel Ivey MD LAB BLOOD ORDERABLES [facility] [address] [place] [address], * Lavender tube (08/08/2024 1:20 PM EST) Extra Tube Hold for add-ons. 08/08/2024 4:[address] [facility] Comment:Auto resulted. Blood Venous blood specimen / Unknown 08/08/2024 1:20 PM EST 08/08/2024 2:05 PM EST Alex Rose DO LAB BLOOD ORDERABLE S [facility] [address] [place] [address], [place] [phone] * (ABNORMAL) Venous blood gas (08/08/2024 1:20 PM EST) pH, Acrlos 7.26(L) 7.32 - 7.42 pH 08/08/2024 1:46 PM [facility] pCO2, Carlos 39(L) 41 - 51 mmHg 08/08/2024 1:46 PM [facility] pO2, Carlos 34 25 - 40 mmHg 08/08/2024 1:46 PM [facility] HCO3, Venous 16.7(L) 22.0 - 26.0 mmol/L 08/08/2024 1:46 PM [facility] O2 Sat, Carlos 58.0 % 08/08/2024 1:46 PM [facility] Base Excess, Carlos -9.0(L) -2.0 - 2.0 mmol/L 08/08/2024 1:[address] [facility] Blood Venous blood specimen / Unknown 08/08/2024 1:20 PM EST 08/08/2024 1:28 PM EST Christel Ivey MD LAB BLOOD ORDERABLES [facility] [address] [place] [address], [place] [phone] * Blood culture pathogens molecular study (08/08/2024 6:53 AM EST) Blood Venous blood specimen / Unknown Venipuncture / Unknown 08/08/2024 6:53 AM EST 08/08/2024 6:[address] [facility] - 08/09/2024 12:05 PM EST No targets detected by multiplex PCR panel. Refer to culture. Gilda ARENAS LAB MICROBIOLOGY - G ENERAL ORDERABLES Performing Organization Address City/[facility]/ZIP Co de Phone Number [facility] [address] [place] [address], [place] [phone] * Lactate (08/08/2024 6:53 AM EST) Pathologist [facility] Lactate 1.5 0.4 - 2.0 mmol/L LAB CHEMISTRY METHOD 08/08/2024 7:[address] [facility] Blood Venous blood specimen / Unknown Venipuncture / Unknown 08/08/2024 6:53 AM EST 08/08/2024 6:57 AM EST Gilda ARENAS LAB BLOOD ORDERABLES Performing Organization Address [facility] Co de Phone Number [facility] [address] [place] [address], * (ABNORMAL) Blood Culture, Peripheral Draw #1 (08/08/2024 6:53 AM EST) Culture, Blood Corynebacterium species(AA) LAB MICROBIOLOGY METHOD 08/11/2024 11:[address] [facility] Comment: The organism value for this result has been updated. These results have been appended to the previously preliminary verified report. Edited result: Previously reported as Gram positive bacilli on 08/10/2024 at 1443 EST. Gram Stain Result Aerobic bottle Gram positive bacilli(AA) 08/11/2024 11:[address] [facility] Comment:This is an appended report. These results have been appended to a previously preliminary verified report. Blood Venous blood specimen / Unknown Venipuncture / Unknown 08/08/2024 6:53 AM EST 08/08/2024 6:57 AM EST Gilda ARENAS LAB MICROBIOLOGY - G ENERAL ORDERABLES Performing Organization Address [facility]/ZIP Co de Phone Number [facility] [address] [place] [address], * Blood Culture, Peripheral Draw #2 (08/08/2024 6:53 AM EST) Culture, Blood No growth at 5 days LAB MICROBIOLOGY METHOD 08/13/2024 8:[address] [facility] Blood Venous blood specimen / Unknown Venipuncture / Unknown 08/08/2024 6:53 AM EST 08/08/2024 6:57 AM EST Gilda ARENAS LAB MICROBIOLOGY - G ENERAL ORDERABLES Performing Organization Address City/[facility]/ZIP Co de Phone Number [facility] [address] [place] [address], [place] [phone] * CT Abdomen Pelvis wo Contrast (08/08/2024 [...] 05:25:[address] PROCEDURES * Culture urine (08/08/2024 4:44 AM EST) Pathologist [facility] Culture, Urine <10,000 CFU/mL gram positive cocci, insignificant count, no further workup 08/09/2024 9:[address] [facility] Urine Urine specimen obtained by clean catch procedure / Unknown Non-blood Collection / Unknown 08/08/2024 4:44 AM EST 08/08/2024 6:32 AM EST Gilda ARENAS LAB MICROBIOLOGY - G ENERAL ORDERABLES Performing Organization Address City/[facility]/ZIP Co de Phone Number [facility] [address] [place] [address], [place] [phone] * Pepper urine culture tube (08/08/2024 4:44 AM EST) Pathologist [facility] Extra Tube Hold for add-ons. 08/08/2024 8:[address] [facility] Comment:Auto resulted. Urine Urine specimen obtained by clean catch procedure / Unknown Non-blood Collection / Unknown 08/08/2024 4:44 AM EST 08/08/2024 6:02 AM EST Gilda ARENAS LAB URINE ORDERABLES Performing Organization Address City/[facility]/ZIP Co de Phone Number [facility] [address] [place] [address], [place] [phone] * (ABNORMAL) Urinalysis with reflex microscopic and culture (08/08/2024 4:44 AM EST) Pathologist [facility] Specific [place] Urine 1.019 1.003 - 1.030 LAB URINALYSIS - AUTOMATED METHOD 08/08/2024 6:32 AM [facility] pH, Urine 5.5 5.0 - 8.0 pH LAB URINALYSIS - AUTOMATED METHOD 08/08/2024 6:32 AM [facility] Leukocytes, Urine Large(A) Negative LAB URINALYSIS - AUTOMATED METHOD 08/08/2024 6:32 AM [facility] Nitrite, Urine Negative Negative LAB URINALYSIS - AUTOMATED METHOD 08/08/2024 6:32 AM [facility] Protein, Urine 30(A) <=Trace mg/dL LAB URINALYSIS - AUTOMATED METHOD 08/08/2024 6:32 AM [facility] Glucose, Urine Negative Negative mg/dL LAB URINALYSIS - AUTOMATED METHOD 08/08/2024 6:32 AM [facility] Ketones, Urine Negative Negative mg/dL LAB URINALYSIS - AUTOMATED METHOD 08/08/2024 6:32 AM [facility] Urobilinogen, Urine 0.2 0.2 - 1.0 mg/dL LAB URINALYSIS - AUTOMATED METHOD 08/08/2024 6:32 AM [facility] Bilirubin, Urine Negative Negative LAB URINALYSIS - AUTOMATED METHOD 08/08/2024 6:32 AM [facility] Blood, Urine Trace(A) Negative LAB URINALYSIS - AUTOMATED METHOD 08/08/2024 6:32 AM [facility] RBC, Urine 5.8(H) 0 - 4 /HPF LAB URINALYSIS - AUTOMATED METHOD 08/08/2024 6:32 AM [facility] WBC, Urine 928.4(H) 0 - 4 /HPF LAB URINALYSIS - AUTOMATED METHOD 08/08/2024 6:32 AM [facility] Squamous Epithelial, Urine 16 0 - 60 /LPF LAB URINALYSIS - AUTOMATED METHOD 08/08/2024 6:[address] [facility] Bacteria, Urine Negative Negative /HPF LAB URINALYSIS - AUTOMATED METHOD 08/08/2024 6:[address] [facility] Hyaline Casts, Urine 8.8(H) 0 - 3 /LPF LAB URINALYSIS - AUTOMATED METHOD 08/08/2024 6:[address] [facility] Urine Urine specimen obtained by clean catch procedure / Unknown Non-blood Collection / Unknown 08/08/2024 4:44 AM EST 08/08/2024 6:02 AM EST Gilda ARENAS LAB URINE ORDERABLES [facility] [address] [place] [address], * XR Chest 1 View (08/08/2024 4:19 AM EST) Anatomical Region Laterality Modality Body Radiographic Camille ging 08/08/2024 8:03 AM EST Impressions 08/08/2024 8:04 AM EST No acute findings. -------- FINAL REPORT -------- Dictated By: Sam Devi Dictated Date: 08/08/2024 08:03 ET Assigned Physician: Sam Devi Reviewed and Electronically Signed By: Sam Devi Signed Date: 08/08/2024 08:04 ET Workstation ID: [id number] Transcribed By: Self Edit Transcribed Date: 08/08/2024 [...] Signed Date: 08/08/2024 08:04 ET Workstation ID: [id number] Transcribed By: Self Edit Transcribed Date: 08/08/2024 08:03 ET Gilda ARENAS IMG XR PROCEDURES * Cardiac Enzymes - CPK (08/08/2024 1:25 AM EST) Pathologist [facility] Total CK 127 22 - 269 unit/L LAB CHEMISTRY METHOD 08/08/2024 2:[address] [facility] Comment:Hemolysis present Blood Venous blood specimen / Unknown Venipuncture / Unknown 08/08/2024 1:25 AM EST 08/08/2024 2:17 AM EST Gilda ARENAS LAB BLOOD ORDERABLES [facility] [address] [place] [address], * (ABNORMAL) CBC auto differential (08/08/2024 1:25 AM EST) Pathologist [facility] WBC 19.6(H) 4.8 - 10.8 K/mcL LAB HEMETOLOGY METHOD 08/08/2024 2:[address] [facility] RBC 4.50 4.50 - 5.50 M/mcL LAB HEMETOLOGY METHOD 08/08/2024 2:[address] [facility] Hemoglobin 13.6 13.5 - 17.5 g/dL LAB HEMETOLOGY METHOD 08/08/2024 2:22 AM [facility] Hematocrit 41.9(L) 42.0 - 54.0 % LAB HEMETOLOGY METHOD 08/08/2024 2:22 AM [facility] MCV 93.3 79.0 - 98.0 FL LAB HEMETOLOGY METHOD 08/08/2024 2:22 AM [facility] MCH 30.3 27.0 - 32.0 pcg LAB HEMETOLOGY METHOD 08/08/2024 2:22 AM [facility] MCHC 32.5 32.0 - 37.0 g/dL LAB HEMETOLOGY METHOD 08/08/2024 2:22 AM [facility] RDW 13.0 11.0 - 15.0 % LAB HEMETOLOGY METHOD 08/08/2024 2:22 AM [facility] Platelets 208 130 - 400 K/mcL LAB HEMETOLOGY METHOD 08/08/2024 2:22 AM [facility] MPV 10.2 7.0 - 11.0 FL LAB HEMETOLOGY METHOD 08/08/2024 2:22 AM [facility] NRBC 0.0 <1.0 % LAB HEMETOLOGY METHOD 08/08/2024 2:22 AM [facility] NRBC Absolute 0.00 <0.10 K/mcL LAB HEMETOLOGY METHOD 08/08/2024 2:22 AM [facility] Neutrophils Relative 87.5 % LAB HEMETOLOGY METHOD 08/08/2024 2:22 AM [facility] Lymphocytes Relative 3.6 % LAB HEMETOLOGY METHOD 08/08/2024 2:22 AM [facility] Monocytes Relative 8.0 % LAB HEMETOLOGY METHOD 08/08/2024 2:22 AM [facility] Eosinophils Relative 0.2 % LAB HEMETOLOGY METHOD 08/08/2024 2:[address] [facility] Basophils Relative 0.2 % LAB HEMETOLOGY METHOD 08/08/2024 2:[address] [facility] Immature Granulocytes Relative 0.5 % LAB HEMETOLOGY METHOD 08/08/2024 2:[address] [facility] Neutrophils Absolute 17.18(H) 1.50 - 7.00 K/mcL LAB HEMETOLOGY METHOD 08/08/2024 2:[address] [facility] Lymphocytes Absolute 0.70(L) 1.00 - 5.00 K/mcL LAB HEMETOLOGY METHOD 08/08/2024 2:[address] [facility] Monocytes Absolute 1.57(H) 0.20 - 1.00 K/mcL LAB HEMETOLOGY METHOD 08/08/2024 2:[address] [facility] Eosinophils Absolute 0.04 0.00 - 0.50 K/mcL LAB HEMETOLOGY METHOD 08/08/2024 2:[address] [facility] Basophils Absolute 0.04 0.00 - 0.20 K/mcL LAB HEMETOLOGY METHOD 08/08/2024 2:[address] [facility] Immature Granulocytes Absolute 0.09(H) 0.00 - 0.03 K/mcL LAB HEMETOLOGY METHOD 08/08/2024 2:[address] [facility] [facility] Blood Venous blood specimen / Unknown Venipuncture / Unknown 08/08/2024 1:25 AM EST 08/08/2024 2:17 AM EST Jamie Crawford MD LAB BLOOD ORDERABLES [facility] [address] [place] [address], * Magnesium (08/08/2024 1:25 AM EST) Magnesium 2.2 1.9 - 2.6 mg/dL LAB CHEMISTRY METHOD 08/08/2024 2:53 AM [facility] Comment:Hemolysis present Blood Venous blood specimen / Unknown Venipuncture / Unknown 08/08/2024 1:25 AM EST 08/08/2024 2:17 AM EST Jamie Crawford MD LAB BLOOD ORDERABLES [facility] [address] [place] [address], [place] [phone] * (ABNORMAL) Basic metabolic panel (08/08/2024 1:25 AM EST) Sodium 135 133 - 145 mmol/L LAB CHEMISTRY METHOD 08/08/2024 2:53 AM [facility] Potassium 4.4 3.5 - 5.5 mmol/L LAB CHEMISTRY METHOD 08/08/2024 2:53 AM [facility] Comment:Hemolysis present Chloride 111(H) 96 - 110 mmol/L LAB CHEMISTRY METHOD 08/08/2024 2:53 AM [facility] CO2 16(L) 21 - 32 mmol/L LAB CHEMISTRY METHOD 08/08/2024 2:53 AM [facility] Anion Gap 8 3 - 11 LAB CHEMISTRY METHOD 08/08/2024 2:53 AM [facility] Glucose 86 70 - 100 mg/dL LAB CHEMISTRY METHOD 08/08/2024 2:53 AM [facility] BUN 34(H) 5 - 25 mg/dL LAB CHEMISTRY METHOD 08/08/2024 2:53 AM [facility] Creatinine 3.70(H) 0.70 - 1.30 mg/dL LAB CHEMISTRY METHOD 08/08/2024 2:53 AM [facility] eGFR 17(L) >=60 mL/min/1. 73m2 LAB CHEMISTRY METHOD 08/08/2024 2:[address] [facility] Comment:Calculation based on the??Chronic Kidney Disease Epidemiology Collaboration (CKD-EPI) equation refit??without adjustment for race. BUN/Creatinine Ratio 9.2 LAB CHEMISTRY METHOD 08/08/2024 2:[address] [facility] Calcium 8.5 8.5 - 10.5 mg/dL LAB CHEMISTRY METHOD 08/08/2024 2:53 AM [facility] Blood Venous blood specimen / Unknown Venipuncture / Unknown 08/08/2024 1:25 AM EST 08/08/2024 2:17 AM EST Jamie Crawford MD LAB BLOOD ORDERABLES Performing Organization Address [facility] Co de Phone Number [facility]) [facility] [address] [place] [address], * ECG 12 lead (08/08/2024 1:21 AM EST) Ventricular Rate ECG 99 BPM GEMUSE Atrial Rate 99 BPM GEMUSE P-R Interval 176 ms GEMUSE QRS Duration 90 ms GEMUSE Q-T Interval 380 ms GEMUSE QTc 487 ms GEMUSE P Wave [place] 62 degrees GEMUSE R [place] 22 degrees GEMUSE T [place] 37 degrees GEMUSE ECG Interpretation Normal sinus rhythm Prolonged QT Abnormal ECG No previous ECGs available Confirmed by LESTER JENSEN ([id number]) on 08/08/2024 9:35:41 PM GEMUSE 08/08/2024 1:21 AM EST 08/08/2024 9:35 PM EST Jamie Crawford MD ECG ORDERABLES Performing Organization Address [facility] Co de Phone Number GEMUSE * ECG-Annotated (08/08/2024) Provider Onbase ECG ORDERABLES documented in this encounter Visit Diagnoses Diagnosis Hydronephrosis- Primary Weakness of both lower extremities Acute cystitis without hematuria Hydronephrosis, unspecified hydronephrosis type Leukocytosis, unspecified type Metabolic acidosis Acidosis Acute renal failure superimposed on chronic kidney disease, unspecified acute renal failure type, unspecified CKD stage (CMS/HCC) Hydronephrosis Weakness of both lower extremities Acute renal failure superimposed on chronic kidney disease (CMS/HCC) documented in this encounter Admitting Diagnoses Diagnosis Hydronephrosis Weakness of both lower extremities Acute renal failure superimposed on chronic kidney disease (CMS/HCC) documented in this encounter Administered Medications Inactive Administered Medications - up to 3 most recent administrations Medication Order MAR Action Action Date Dose Rate Site acetaminophen (TYLENOL) tablet 650 mg 650 mg, oral, Every 6 hours PRN, mild pain, moderate pain, headaches, Starting on Wed08/08/24 at 1707 Given 08/10/2024 8:53 PM EST 650 mg ascorbic acid (VITAMIN C) tablet 1,000 mg 1,000 mg, oral, Daily, First dose on Wed08/09/24 at 0900 Given 08/11/2024 8:52 AM EST 1,000 mg Given 08/10/2024 8:12 AM EST 1,000 mg Given 08/09/2024 9:16 AM EST 1,000 mg aspirin EC tablet 81 mg 81 mg, oral, Daily, First dose on Wed08/09/24 at 0900, Do not crush, chew, or split. Given 08/11/2024 8:52 AM EST 81 mg Given 08/10/2024 8:12 AM EST 81 mg Given 08/09/2024 9:16 AM EST 81 mg atorvastatin (LIPITOR) tablet 40 mg 40 mg, oral, Daily, First dose on Wed08/09/24 at 0900 Given 08/11/2024 8:52 AM EST 40 mg Given 08/10/2024 8:12 AM EST 40 mg Given 08/09/2024 9:17 AM EST 40 mg buPROPion XL (WELLBUTRIN XL) 24 hr tablet 450 mg 450 mg, oral, Daily, First dose on Wed08/09/24 at 0900, Do not crush, chew, or split. Given 08/11/2024 8:52 AM EST 450 mg Given 08/10/2024 8:12 AM EST 450 mg Given 08/09/2024 9:16 AM EST 450 mg cefepime (MAXIPIME) 1 g in sterile water 10 mL IV syringe 1 g, intravenous, at 120 mL/hr, Administer over 5 Minutes, Every 24 hours, First dose (after last modification) on Wed08/09/24 at 1600, For 8 days, Renal dosing protocol, Indication: Urinary Tract/Genitourinary Given 08/10/2024 5:45 PM EST 1 g 120 mL/hr Given 08/09/2024 3:24 PM EST 1 g 120 mL/hr cefTRIAXone (ROCEPHIN) 1 g in sterile water 10 mL IV syringe 1 g, intravenous, at 200 mL/hr, Administer over 3 Minutes, Once, On Wed08/08/24 at 0700, For 1 dose, Do not administer simultaneously with any calcium containing solutions via a Y-site in any patient., Indication: Urinary Tract/Genitourinary Given 08/08/2024 7:03 AM EST 1 g 200 mL/hr cefTRIAXone (ROCEPHIN) 1 g in sterile water 10 mL IV syringe 1 g, intravenous, at 200 mL/hr, Administer over 3 Minutes, Every 24 hours, First dose on Wed08/09/24 at 0700, For 6 days, Do not administer simultaneously with any calcium containing solutions via a Y-site in any patient., Indication: Urinary Tract/Genitourinary Given 08/09/2024 9:19 AM EST 1 g 200 mL/hr cholecalciferol (VITAMIN D-3) tablet 2,000 Units 2,000 Units, oral, Daily, First dose on Wed08/09/24 at 0900, 1000 units = 25 mcg of cholecalciferol (VITAMIN D3) Given 08/11/2024 8:52 AM EST 2,000 Units Given 08/10/2024 8:12 AM EST 2,000 Units Given 08/09/2024 9:16 AM EST 2,000 Units DULoxetine (CYMBALTA) DR capsule 60 mg 60 mg, oral, Daily, First dose on Wed08/09/24 at 0900, Do not crush or chew. Given 08/11/2024 8:52 AM EST 60 mg Given 08/10/2024 8:11 AM EST 60 mg Given 08/09/2024 9:15 AM EST 60 mg finasteride (PROSCAR) tablet 5 mg 5 mg, oral, Daily, First dose on Wed08/09/24 at 0900, HAZARDOUS Drug Precautions - Low Risk (Category A/NIOSH Group 3) Reproductive Risk Only: - Do NOT split, crush, or open dosage units - Single pair of ASTM standard [id number] certified chemotherapy gloves - Eye protection (goggles or face shield) required only with a potential for facial contact (i.e. concern for spitting or vomiting of the dose during or after administration) Given 08/11/2024 8:52 AM EST 5 mg Given 08/10/2024 8:12 AM EST 5 mg Given 08/09/2024 9:16 AM EST 5 mg gabapentin (NEURONTIN) capsule 200 mg 200 mg, oral, Nightly, First dose on Wed08/08/24 at 2100 Given 08/10/2024 8:54 PM EST 200 mg Given 08/09/2024 8:18 PM EST 200 mg Given 08/08/2024 9:09 PM EST 200 mg heparin (UFH) injection 5,000 Units 5,000 Units, subcutaneous, Every 12 hours scheduled, First dose on Wed08/08/24 at 2100, Enter Indication for use of heparin (UFH) instead of enoxaparin (LOVENOX): (free text): ARIS, Indication: VTE Prophylaxis, Indications: Prophylaxis of Venous Thromboembolism Given 08/11/2024 8:52 AM EST 5,000 Units Left Lower Abdomen Given 08/10/2024 8:53 PM EST 5,000 Units R ight Lower Abdomen Given 08/10/2024 8:12 AM EST 5,000 Units R ight Lower Abdomen isosorbide mononitrate (IMDUR) 24 hr tablet 60 mg 60 mg, oral, Daily, First dose on Wed08/09/24 at 0900, Do not crush, chew, or split. Given 08/11/2024 8:52 AM EST 60 mg Given 08/10/2024 8:11 AM EST 60 mg Given 08/09/2024 9:16 AM EST 60 mg lactated Ringer's infusion 100 mL/hr, intravenous, Continuous, Starting on Wed08/08/24 at 1639, For 20 hours New Bag 08/09/2024 9:20 AM EST 100 mL/hr 100 mL/hr New Bag 08/08/2024 11:39 PM EST 100 mL/hr 100 mL/hr New Bag 08/08/2024 4:58 PM EST 100 mL/hr 100 mL/hr lactated Ringer's infusion 75 mL/hr, intravenous, Continuous, Starting on Sybil 08/10/24 at 1245, For 24 hours New Bag 08/11/2024 4:05 AM EST 75 mL/hr 75 mL/hr New Bag 08/10/2024 2:34 PM EST 75 mL/hr 75 mL/hr lidocaine 2 % mucosal jelly urethral, Once, On Wed08/08/24 at 0348, For 1 dose Given 08/08/2024 4:14 AM EST 11 mL LORazepam (ATIVAN) tablet 1 mg 1 mg, oral, Once, On Wed08/08/24 at 1343, For 1 dose Given 08/08/2024 2:51 PM EST 1 mg LORazepam (ATIVAN) tablet 1 mg 1 mg, oral, 2 times daily PRN, anxiety, Starting on Wed08/08/24 at 1640 Given 08/08/2024 11:27 PM EST 1 mg methenamine hippurate (HIPREX) tablet 1 g 1 g, oral, Daily, First dose on Wed08/09/24 at 0900, For 30 days, Indication: Urinary Tract/Genitourinary Given 08/11/2024 8:52 AM EST 1 g Given 08/10/2024 8:12 AM EST 1 g Given 08/09/2024 9:16 AM EST 1 g ondansetron (PF) (ZOFRAN) injection 4 mg 4 mg, intravenous, Once, On Wed08/08/24 at 2330, For 1 dose Given 08/08/2024 11:27 PM EST 4 mg pantoprazole (PROTONIX) EC tablet 40 mg 40 mg, oral, Every morning before breakfast, First dose on Wed08/09/24 at 0700, Do not crush, chew, or split. Given 08/11/2024 6:24 AM EST 40 mg Given 08/10/2024 6:18 AM EST 40 mg sodium bicarbonate tablet 650 mg 650 mg, oral, 2 times daily, First dose on Wed08/08/24 at 2100 Given 08/11/2024 8:52 AM EST 650 mg Given 08/10/2024 8:52 PM EST 650 mg Given 08/10/2024 8:11 AM EST 650 mg sodium chloride 0.9 % infusion 125 mL/hr, intravenous, Continuous, Starting on Wed08/08/24 at 1252 New Bag 08/08/2024 2:57 PM EST 125 mL/hr 125 mL/hr traZODone (DESYREL) tablet 200 mg 200 mg, oral, Nightly, First dose on Wed08/08/24 at 2100 Given 08/10/2024 8:54 PM EST 200 mg Given 08/09/2024 8:18 PM EST 200 mg Given 08/08/2024 9:09 PM EST 200 mg vancomycin (VANCOCIN) IVPB 1,250 mg in 0.9 % sodium chloride 250 mL - CNR 1,250 mg, intravenous, at 166.7 mL/hr, Administer over 90 Minutes, Every 48 hours, First dose on Wed08/09/24 at 1700, For 7 days, Indication: Bacteremia, Urinary Tract/Genitourinary New Bag 08/09/2024 6:03 PM EST 1,250 mg 166.7 mL/hr documented in this encounter Discontinued Medications Medication Sig Discontinue Reason Start Date End Da te tamsulosin (FLOMAX) 0.4 mg 24 hr capsule Take 2 capsules (0.8 mg total) by mouth daily. Entered in Error 11/22/2023 08/08/2024 documented as of this encounter Historical Medications * This list may reflect changes made after this encounter. Medication Sig Dispensed Refills Start Date End Date finasteride (PROSCAR) 5 mg tablet Take 1 tablet (5 mg total) by mouth 1 (one) time each day. Do not crush, chew, or split. traZODone (DESYREL) 100 mg tablet Take 2 tablets (200 mg total) by mouth at bedtime. sodium bicarbonate 650 mg tablet Take 1 tablet (650 mg total) by mouth 2 (two) times a day. omeprazole (PriLOSEC) [address] capsule Take 1 capsule (20 mg total) by mouth daily. 01/16/2024 methenamine hippurate (HIPREX) 1 gram tablet Take 1 tablet (1 g total) by mouth 1 (one) time each day. LORazepam (ATIVAN) 1 mg tablet Take 1 tablet (1 mg total) by mouth 2 (two) times a day if needed for anxiety. isosorbide mononitrate (IMDUR) 60 mg 24 hr tablet Take 1 tablet (60 mg total) by mouth 1 (one) time each day. 05/15/2021 gabapentin (NEURONTIN) 100 mg capsule Take 2 capsules (200 mg total) by mouth at bedtime. DULoxetine (CYMBALTA) [address] capsule Take 1 capsule (60 mg total) by mouth daily. 11/06/2022 cholecalciferol (VITAMIN D-3) 50 mcg (2,000 unit) capsule Take 1 capsule (2,000 Units total) by mouth 1 (one) time each day. buPROPion XL (WELLBUTRIN XL) 150 mg 24 hr tablet Take 3 tablets (450 mg total) by mouth 1 (one) time each day. ascorbic acid (VITAMIN C) 1,000 mg tablet Take 1 tablet (1,000 mg total) by mouth 1 (one) time each day. 06/07/2024 aspirin 81 mg EC tablet Take 1 tablet (81 mg total) by mouth daily. 11/03/2023 atorvastatin (LIPITOR) 40 mg tablet Take 1 tablet (40 mg total) by mouth 1 (one) time each day. 03/31/2012 tamsulosin (FLOMAX) 0.4 mg 24 hr capsule Take 2 capsules (0.8 mg total) by mouth daily. 11/22/2023 08/08/2024 added in this encounter Active and Recently Administered Medications Times are shown in EST. Scheduled Medication Order 08/09/2024 08/10/2024 08/11/2024 ascorbic acid (VITAMIN C) tablet 1,000 mg 1,000 mg, oral, Daily, First dose on Wed08/09/24 at 0900 0916 (Given - Provider: Wendy Rivera RN) 0812 (Given - Provider: Yvonne Porter RN) 0852 (Given - Provider: Meme Brothers, [place]) aspirin EC tablet 81 mg 81 mg, oral, Daily, First dose on Wed08/09/24 at 0900, Do not crush, chew, or split. 0916 (Given - Provider: Wendy Rivera RN) 0812 (Given - Provider: Yvonne Porter RN) 0852 (Given - Provider: Meme Brothers, [place]) atorvastatin (LIPITOR) tablet 40 mg 40 mg, oral, Daily, First dose on Wed08/09/24 at 0900 0917 (Given - Provider: Wendy Rivera RN) 0812 (Given - Provider: Yvonne Porter RN) 0852 (Given - Provider: Meme Brothers RN) buPROPion XL (WELLBUTRIN XL) 24 hr tablet 450 mg 450 mg, oral, Daily, First dose on Wed08/09/24 at 0900, Do not crush, chew, or split. 0916 (Given - Provider: Wendy Rivera RN) 08 (Given - Provider: Yvonne Porter RN) 0852 (Given - Provider: Meme Brothers RN) cefepime (MAXIPIME) 1 g in sterile water 10 mL IV syringe (CANCELED) 1 g, intravenous, at 120 mL/hr, Administer over 5 Minutes, Every 24 hours, First dose (after last modification) on Wed08/09/24 at 1600, For 8 days, Renal dosing protocol, Indication: Urinary Tract/Genitourinary 1524 (Given - Provider: Wendy Rivera RN) 1745 (Given - Provider: Yvonne Porter RN) cefTRIAXone (ROCEPHIN) 1 g in sterile water 10 mL IV syringe (CANCELED) 1 g, intravenous, at 200 mL/hr, Administer over 3 Minutes, Every 24 hours, First dose on Wed08/09/24 at 0700, For 6 days, Do not administer simultaneously with any calcium containing solutions via a Y-site in any patient., Indication: Urinary Tract/Genitourinary 0919 (Given - Provider: Wendy Rivera RN) cholecalciferol (VITAMIN D-3) tablet 2,000 Units 2,000 Units, oral, Daily, First dose on Wed08/09/24 at 0900, 1000 units = 25 mcg of cholecalciferol (VITAMIN D3) 16 (Given - Provider: Wendy Rivera RN) 0812 (Given - Provider: Yvonne Porter RN) 0852 (Given - Provider: Meme Brothers RN) DULoxetine (CYMBALTA) DR capsule 60 mg 60 mg, oral, Daily, First dose on Wed08/09/24 at 0900, Do not crush or chew. 0915 (Given - Provider: Wendy Rivera RN) 08 (Given - Provider: Yvonne Porter RN) 0852 (Given - Provider: Meme Brothers RN) finasteride (PROSCAR) tablet 5 mg 5 mg, oral, Daily, First dose on Wed08/09/24 at 0900, HAZARDOUS Drug Precautions - Low Risk (Category A/NIOSH Group 3) Reproductive Risk Only: - Do NOT split, crush, or open dosage units - Single pair of ASTM standard D6978 certified chemotherapy gloves - Eye protection (goggles or face shield) required only with a potential for facial contact (i.e. concern for spitting or vomiting of the dose during or after administration) 915 (Given - Provider: Wendy Rivera RN) 811 (Given - Provider: Yvonne Porter RN) 0852 (Given - Provider: Meme Brothers RN) gabapentin (NEURONTIN) capsule 200 mg 200 mg, oral, Nightly, First dose on Wed08/08/24 at 2100 2017 (Given - Provider: Annita Mclaughlin RN) 2053 (Given - Provider: Annamaria Myrick RN) heparin (UFH) injection 5,000 Units 5,000 Units, subcutaneous, Every 12 hours scheduled, First dose on Wed08/08/24 at 2100, Enter Indication for use of heparin (UFH) instead of enoxaparin (LOVENOX): (free text): ARIS, Indication: VTE Prophylaxis, Indications: Prophylaxis of Venous Thromboembolism 915 (Given - Provider: Wendy Rivera RN)2016 (Given - Provider: Annita Mclaughlin RN) 811 (Given - Provider: Yvonne Porter RN)2052 (Given - Provider: Annamaria Myrick RN) 0852 (Given - Provider: Meme Brothers RN) isosorbide mononitrate (IMDUR) 24 hr tablet 60 mg 60 mg, oral, Daily, First dose on Wed08/09/24 at 0900, Do not crush, chew, or split. 915 (Given - Provider: Wendy Rivera RN) 810 (Given - Provider: Yvonne Porter RN) 0852 (Given - Provider: Meme Brothers RN) methenamine hippurate (HIPREX) tablet 1 g 1 g, oral, Daily, First dose on Wed08/09/24 at 0900, For 30 days, Indication: Urinary Tract/Genitourinary 0916 (Given - Provider: Wendy Rivera RN) 08 (Given - Provider: Yvonne Porter, [place]) 0852 (Given - Provider: Meme Brothers, [place]) pantoprazole (PROTONIX) EC tablet 40 mg 40 mg, oral, Every morning before breakfast, First dose on Wed08/09/24 at 0700, Do not crush, chew, or split. 0941 (Not Given - Provider: Wendy Rivera RN - Reason: Patient/Resident/Age nt refused - education provided ) 0618 (Given - Provider: Annita Mclaughlin, [place]) 06 (Given - Provider: Annamaria Myrick, RN) sodium bicarbonate tablet 650 mg 650 mg, oral, 2 times daily, First dose on Wed08/08/24 at 2100 0916 (Given - Provider: Wendy Rivera RN)2017 (Given - Provider: Annita Mclaughlin RN) 08 (Given - Provider: Yvonne Porter, [place])2051 (Given - Provider: Annamaria Myrick, RN) 0852 (Given - Provider: Meme Brothers, [place]) traZODone (DESYREL) tablet 200 mg 200 mg, oral, Nightly, First dose on Wed08/08/24 at 2100 2017 (Given - Provider: Annita Mclaughlin, [place]) 2053 (Given - Provider: Annamaria Myrick, [place]) vancomycin (VANCOCIN) IVPB 1,250 mg in 0.9 % sodium chloride 250 mL - CNR (CANCELED) 1,250 mg, intravenous, at 166.7 mL/hr, Administer over 90 Minutes, Every 48 hours, First dose on Wed08/09/24 at 1700, For 7 days, Indication: Bacteremia, Urinary Tract/Genitourinary 1803 (New Bag - Provider: Wendy Rivera RN)2140 (Stopped - Provider: Annita Mclaughlin RN) Continuous Medication Order 08/09/2024 08/10/2024 08/11/2024 lactated Ringer's infusion () 100 mL/hr, intravenous, Continuous, Starting on Wed08/08/24 at 1639, For 20 hours 0920 (New Bag - Provider: Wendy Rivera, [place])1811 (Stopped - Provider: Wendy Rivera, [place]) lactated Ringer's infusion (CANCELED) 75 mL/hr, intravenous, Continuous, Starting on Sybil 08/10/24 at 1245, For 24 hours 1434 (New Bag - Provider: Yvonne Porter, RN) 0405 (New Bag - Provider: Annamaria Myrick, [place])0951 (Stopped - Provider: Meme Brothers RN) PRN Medication Order 08/09/2024 08/10/2024 08/11/2024 acetaminophen (TYLENOL) tablet 650 mg 650 mg, oral, Every 6 hours PRN, mild pain, moderate pain, headaches, Starting on e 08/08/24 at 1707 2053 (Given - Provider: Annamaria Myrick, [place]) LORazepam (ATIVAN) tablet 1 mg 1 mg, oral, 2 times daily PRN, anxiety, Starting on e 08/08/24 at 1640 documented in this encounter Orders Medications Ordered That Alhaji ht Not Have Been Administered Count Last Ordered Date First Ordered Date cefepime (MAXIPIME) 1 g in s terile water 10 mL IV syringe 1 08/09/2024 Lab Orders Without Results Count Last Ordered D ate First Ordered Date POCT GLUCOSE, BLOOD 1 08/08/2024 EKG Orders Without Results Count Last Ordered D ate First Ordered Date ECG 12-LEAD 1 08/09/2024 Nursing Count Last Ordered Date First Orde red Date BLADDER SCAN 1 08/08/2024 STRAIGHT CATH 1 08/08/2024 VITAL SIGNS 1 08/08/2024 Consult Count Last Ordered Date First Orde red Date IP CONSULT TO NUTRITION SERVICES 08/09/19 WOUND OSTOMY EVAL AND TREAT 1 08/08/2024 Admission Count Last Ordered Date First Orde red Date ADMIT TO INPATIENT 1 08/08/2024 Transfer Count Last Ordered Date First Orde red Date ED TO FLOOR BED REQUEST 1 08/08/2024 Discharge Count Last Ordered Date First Orde red Date DISCHARGE PATIENT 1 08/11/2024 documented in this encounter Care Teams Construction Director Relationship Specialty Start Date End Date Physician, No Pcp PCP - General 08/08/24 documented as of this encounter
== END 2024-08-21 13:00 | disposition home or self-care (01) ==
LOC: HO.US 12:59
PROVIDERS: PCP Family Medicine; Visit Provider Nurse Practitioner Family
DX: R33.9 Retention of urine, unspecified (principal)
CPT/HCPCS: 76770

== ENCOUNTER → 2024-08-21 13:18 | Outpatient (BNV) | payer MEDICARE, SELFPAY | PROVIDERS: PCP Family Medicine; Visit Provider Radiology Diagnostic Radiology | DX: R33.9 Retention of urine, unspecified (principal) | CPT/HCPCS: 76770 ==

== ENCOUNTER 2024-11-16 11:25 | Outpatient (AMB) | payer MEDICARE, SELFPAY ==
--- NOTE | 2024-11-16 11:35 | A.OFFVIS_ITS ---
Intake Visit Reasons: 3m followup US(set) Intake Note: Patient presents today for tele visit follow up on: neurogenic bladder , retention/incomplete bladder emptying, and ultrasound results Imaging Completed: 08/21/24 Urology Medications: terazosin, finasteride, methenamine, vitamin c Blood Thinner: aspirin PVR: 0ml's Elder Assistant Required: No Accompanied by: Self / Same As Patient Allergies lactose Allergy (Unknown, Verified 11/16/24 22:12) Unknown Ciprofloxacin HCl Allergy (Unknown, Uncoded 11/16/24 22:12) Unknown Medication List - Last Reconciled 11/16/24 by SIMON Mcfarland ascorbic acid (vitamin C) 1 g PO DAILY 90 days aspirin 81 mg PO DAILY atorvastatin 40 mg PO DAILY bupropion HCl XL 300 mg PO DAILY cholecalciferol (vitamin D3) 50 mcg PO DAILY cyanocobalamin (vitamin B-12) 1,000 mcg PO DAILY diaper,brief,adult,disposable (Select Disposable Briefs) As directed; 4 times daily duloxetine 60 mg PO DAILY finasteride 5 mg PO DAILY 30 days gabapentin mg PO isosorbide mononitrate ER 30 mg PO DAILY loperamide 2 mg PO BID PRN lorazepam 1 mg PO BID magnesium oxide 400 mg PO DAILY methenamine hippurate 1 g PO DAILY 90 days omeprazole 20 mg PO DAILY sodium bicarbonate 650 mg PO BID terazosin 5 mg PO BEDTIME 30 days trazodone 200 mg PO BEDTIME HPI Comments Details: Juan Calhoun is a 74-year-old male patient of Dr. Franz who was accompanied by Alison at today's office visit. He has a PMH of anxiety, depression, nephrolithiasis, neurogenic bladder, obstructive sleep apnea, TBI, ulcerative colitis, bowel resection status post ileostomy. He presents to the office today for follow-up of his incomplete bladder emptying/urinary retention. In discussion with the patient today he reports compliance with terazosin, finasteride, methenamine, and vitamin-C as prescribed. He denies having had any bothersome urinary issues or concerns since his last office visit here. However he does report following up with PCP, physical therapist and orthopedic provider regarding his sciatica as he continues to experience bilateral lower extremity weakness. Of note, patient underwent an office cystoscopy with Dr. Starr 02/15 that noted open bladder neck. Patient with a previous history of urinary retention requiring catheter placement. He also has a previous history of CIC for incomplete bladder emptying/urinary retention. When asked he currently denies any UTI like symptoms.He denies urinary urgency, urinary frequency, incontinence, nocturia, hematuria, dysuria, changes to urinary stream, flank pain, fever, and or chills. In office urinalysis results reviewed with the patient today. PVR today 0 mL. We discussed significant decrease in postvoid residuals. WILVER offered however deferred. He otherwise offers no other issues or concerns at this time. Plan The patient?s comprehensive care plan is to maintain the current medications improving his bladder function, given the decrease in post-void residuals and UTI incidence. It is pertinent the patient persists with physical therapy as part of his management for agility and sciatic involvement. The prostate level will be determined through scheduled blood tests, thereby refining ongoing treatment strategy. Patient was informed and verbally consented to the use of an ambient scribe for clinic note documentation during this visit. Discussion Notes During the visit, I addressed the patient's urinary symptoms and decreased mobility. We discussed the absence of a urinary tract infection and reviewed previous hospital findings. I explained how the current medications are promoting better bladder drainage and reducing complications. We also discussed bloodwork to evaluate prostate-specific antigen levels and ensured the patient understands the value of such tests in guiding further care. Review of Systems Const Reports as per HPI Eyes Reports no additional complaints ENT Reports no additional complaints Card Reports as per HPI Resp Reports no additional complaints GI Reports as per HPI Reports as per HPI Musc Reports no additional complaints Neuro Reports as per HPI Psych Reports as per HPI Endo Reports no additional complaints Physical Exam Const General: cooperative, comfortable, no acute distress, well developed, alert and awake Nutritional Appearance: overweight Orientation/consciousness: oriented to person Limitations: ambulation with walker HEENT Head: Yes normal to inspection, Yes normocephalic and Yes atraumatic Ears: hearing grossly normal bilaterally Eyes General: appearance normal, both eyes and all related structures Neck Neck: Yes normal visual inspection and Yes trachea midline Chest Chest palpation & inspection: normal inspection of the chest Resp Effort & Inspection: normal respiratory effort and able to speak in complete sentences Cardio Rate: regular rate GI Inspection: Yes normal to inspection General: Yes no CVA tenderness Back/Spine/Pelvis Back: no CVA tenderness Skin General skin exam: no rashes or lesions noted Neuro General: oriented to person Extrem General: Yes normal to inspection Psych Appearance: grossly normal Speech and movement: Normal speech and movement present and Clear speech present Affect: normal affect Attitude: cooperative Thought content: Normal thought content present Insight: Fair insight present (Psych) Judgement: Fair judgement present (Psych) Office Procedures Post Void Residual Post Residual Void Post Void Residual (PVR): 0 28739-Uwnq Void Residual by ultrasound Results AMB Urinalysis, Automated UA Leukoctes 500 Cary/uL Last Edit by [employer] on 11/16/24 11:53 UA Nitrite Last Edit by [employer] on 11/16/24 11:53 UA Urobilinogen 0.2 mg/dL Last Edit by [employer] on 11/16/24 11:53 UA Protein 30 mg/dL Last Edit by [employer] on 11/16/24 11:53 UA pH 6.0 Last Edit by [employer] on 11/16/24 11:53 UA Blood 25 Lenard/uL Last Edit by [employer] on 11/16/24 11:53 UA Specific [place] 1.015 Last Edit by [employer] on 11/16/24 11:53 UA Ketone Last Edit by [employer] on 11/16/24 11:53 UA Bilirubin 0 mg/dL Last Edit by [employer] on 11/16/24 11:53 UA Glucose 0 mg/dL Last Edit by [employer] on 11/16/24 11:53 Results Reviewed Results Reviewed: Laboratory Last Values Urine pH (Auto) 6.0 11/16/24 11:52 Specific [place] (Auto) 1.015 11/16/24 11:52 Urine Protein (Auto) 30 mg/dL 11/16/24 11:52 Glucose (UA)(Auto) 0 mg/dL 11/16/24 11:52 Urine Blood (Auto) 25 Lenard/uL 11/16/24 11:52 Urine Bilirubin (Auto) 0 mg/dL 11/16/24 11:52 Urine Urobilinogen (Auto) 0.2 mg/dL 11/16/24 11:52 Leukocyte Esterase (Auto) 500 Cary/uL 11/16/24 11:52 Date of Service: 08/21/24 Procedure(s): US retroperitoneal comp Findings: Right kidney 9.0 cm length. Mild hydronephrosis noted. Sub cm upper pole cyst noted. 3.5 x 3.6 cm midpole cyst. Left kidney 9.7 cm length. No significant focal abnormality. Bilateral increased echogenicity noted. This likely indicates chronic disease. Bladder wall is trabeculated. Debris noted in dependent portion of the bladder. This can be seen with infection or hemorrhage. Prevoid volume 232 mL. Post void volume 146 mL. Bilateral ureteral jets visualized. Impression: Postvoid residual volume 146 mL Mild right hydronephrosis Increased renal echogenicity consistent with chronic disease Ultrasound prostate Prostate heterogeneous but normal in size. Prostate 3.3 x 3.9 x 3.2 cm. Prostate volume: 21.6 mL. No focal prostate abnormality. Impression: No significant abnormality Assessment & Plan Assessment & Plan (1) Urinary tract infection: Code(s): N39.0 - Urinary tract infection, site not specified Category: Medical (2) Incomplete bladder emptying: Code(s): R33.9 - Retention of urine, unspecified Category: Medical (3) Urinary retention: Code(s): R33.9 - Retention of urine, unspecified Category: Medical Plan In office urinalysis results reviewed with the patient today; as noted above. PVR 0 mL. Recent retroperitoneal ultrasound results reviewed with the patient today; as noted above. Continue urological medications as prescribed. Patient currently denies any bothersome urinary issues or concerns. He reports be happy with current voiding parameters. WILVER offered however deferred. Will obtain PSA for further assessment evaluation. Will continue with surveillance monitoring. Follow-up in 3 months with PSA and PVR; or sooner with any issues, concerns, and or questions. Orders: Orders Prostate Specific Antigen Today R33.9 - Retention of urine, unspecified AMB Urinalysis Automated Today Z13.9 - Encounter for screening, unspecified AMB Post Void Residual by ultrasound Today N39.0 - Urinary tract infection, site not specified Patient Instructions: The patient had an opportunity to ask questions regarding the treatment plan. All questions were answered. Physical exam, labs, and imaging were discussed and reviewed in detail. As well as risks, benefits, and discussion of treatment choices. No major barriers to understanding were identified. The patient expressed understanding and agreement with the above treatment plan. The patient was made aware they should contact our office by phone for worsening of their current condition, the appearance of new symptoms, or with any questions or concerns. Compliance is encouraged with any medications and follow up testing that is ordered. It is a privilege to be allowed the opportunity to participate in? your urological care.? Again, if you have any questions or concerns If you have any questions or concerns please do not hesitate to contact me. The office is [phone]. This note is constructed using voice recognition software. While every effort has been made to ensure accuracy service delivery consultant errors may have been included. Yours sincerely, SIMON Mcfarland Coding Level of Care Code Est Pt Level 3 (93519) Complex EM visit Add On G2211 Diagnoses Urinary tract infection N39.0 Incomplete bladder emptying R33.9 Urinary retention R33.9 CPT Codes Post Residual Void - PVR CPT Code: 03334-Qtfx Void Residual by ultrasound ([id number])
--- OUTSIDE RECORDS SUMMARY | 2024-11-16 13:43 | XMS_ITS | Clinical Summary ---
Author Organization [facility] Address [address] [place] [address] Phone Care Team Providers Care Stripping Shovel Operator Name Role Phone Physician, No Pcp Primary Care Provider Unavaila ble Allergies Active Allergy Reactions Criticality Noted Date Comments Milk Containing Products (Dairy) Medications atorvastatin (LIPITOR) 40 mg tablet Take 1 tablet (40 mg total) by mouth 1 (one) time each day. 2 Active aspirin 81 mg EC tablet Take 1 tablet (81 mg total) by mouth daily. 4 Active ascorbic acid (VITAMIN C) 1,000 mg tablet Take 1 tablet (1,000 mg total) by mouth 1 (one) time each day. 4 Active buPROPion XL (WELLBUTRIN XL) 150 mg 24 hr tablet Take 3 tablets (450 mg total) by mouth 1 (one) time each day. Active cholecalciferol (VITAMIN D-3) 50 mcg (2,000 unit) capsule Take 1 capsule (2,000 Units total) by mouth 1 (one) time each day. Active DULoxetine (CYMBALTA) [address] capsule Take 1 capsule (60 mg total) by mouth daily. 3 Active gabapentin (NEURONTIN) 100 mg capsule Take 2 capsules (200 mg total) by mouth at bedtime. Active isosorbide mononitrate (IMDUR) 60 mg 24 hr tablet Take 1 tablet (60 mg total) by mouth 1 (one) time each day. 1 Active LORazepam (ATIVAN) 1 mg tablet Take 1 tablet (1 mg total) by mouth 2 (two) times a day if needed for anxiety. Active methenamine hippurate (HIPREX) 1 gram tablet Take 1 tablet (1 g total) by mouth 1 (one) time each day. Active omeprazole (PriLOSEC) [address] capsule Take 1 capsule (20 mg total) by mouth daily. Active sodium bicarbonate 650 mg tablet Take 1 tablet (650 mg total) by mouth 2 (two) times a day. Active traZODone (DESYREL) 100 mg tablet Take 2 tablets (200 mg total) by mouth at bedtime. Active finasteride (PROSCAR) 5 mg tablet Take 1 tablet (5 mg total) by mouth 1 (one) time each day. Do not crush, chew, or split. Active Active Problems Problem Noted Date Diagnosed Date Weakness of both lower extremities 08/11/2024 Acute renal failure superimp osed on chronic kidney disease ([facility] V24) 08/11/2024 Hydronephrosis 08/08/2024 Surgical History Surgery Date Site/Laterality Comments TOTAL COLECTOMY ILEOSTOMY SHOULDER SURGERY Bilateral CORONARY STENT PLACEMENT Medical History Medical History Date Comments Hypercholesteremia CKD (chronic kidney disease) stage 4, GFR 15-29 ml/min ([facility] V24, [facility] V28) CAD (coronary artery disease) Depression Anxiety Ulcerative colitis ([facility] V24, [facility] V28) Anemia Social History Tobacco Use Types Packs/Day [...] Assigned at Male 08/08/2024 2:01 AM EST Legal Sex Male 12:47 AM EST Gender Identity Male 08/08/2024 2:01 AM EST Sexual Orientation Not on file Obstetrics History Last Filed [...] Vaccines (1 of 2) 1971 RSV Immunization Adult Patients (1 - Risk 60-74 years 1-dose series) 2012 COVID-19 Vaccine ( - season) 2024 06/12/2022, 12/10/2021, 08/20/2021, Additional history exists Cholesterol Screening (Lipid Panel) 08/08/2024 Depression Screening 08/08/2024 Hepatitis C Screening 08/08/2024 Social Influencers of Health Screening 08/08/2024 Falls Risk Assessment 08/11/2025 08/11/2024 Hypertension/CHF/CAD Annual BMP Blood Test 08/24/2025 08/24/2024, 08/11/2024, 08/10/2024, Additional history exists DTaP,Tdap,and Td Vaccines (4 - Td or Tdap) 08/27/2032 08/27/2022, 08/21/2011, 03/31/1995 Pneumococcal Vaccine: 50+ Years Completed 08/29/2019, 05/24/2018, 01/09/2011 Colorectal Cancer [...] patient's age to complete this topic Meningococcal B Vaccine Aged Out No l onger eligible based on patient's age to complete this topic RSV Immunization Patients Under 20 months Aged Out No longer eligible based on patient's age to complete this topic Varicella Vaccines Aged Out No longer eligible based on patient's age to complete this topic Procedures Procedure Name Priority Date/Time Associated Diagnosis Comments BASIC METABOLIC PANEL Routine 08/11/2024 7:26 AM EST from Last 3 Months or Most Recently Relevant to Health Maintenance Insurance [place] Advance Directives * No CPR/Do Not Intubate [...] currently active code status orders. Care Teams Stripping Shovel Operator Relationship Specialty Start Date End Date Physician, No Pcp PCP - General 08/08/24
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
--- OUTSIDE RECORDS SUMMARY | 2024-11-16 13:43 | XMS_ITS ---
Author Organization [facility] Care Team Providers Care Furniture Stainer Name Role Phone Yannick Vora Unavailable Unavailable Allergies and adverse reactions Code CodeSystem Substance Reaction Severity StartDate Concern Status Ativan, Lactose Unknown Unknown active Care Team Name Role Address Phone Organization Dates Yannick Vora Attending Physician [address], [address], [place] (Office): [phone] [facility] 10/22/2011 - 11/12/2011 Mental Status Section Date Assessment Total Score Description 10/29/2011 BIMS 15 cognitively int act PHQ-9 18 moderately carolyn re depression Reason for Referral No Reasons for Referral Entered Social History Social History Observation Description Start Date End Date Code Code System Current Smoking Status Tobacco smoking consumption unknown 089576675 SNOMED CT Sex Assigned At Male 1950 86254-6 [facility] Vital Signs Code Code System Vitals Name Values and Units Timing Information 86872-9 LOINC Weight Hmphk=383.6 Units=Lbs 9279-1 LOINC Respiratory Rate Value=18.0 Units=/m in 11/10/2011 8462-4 LOINC Blood Pressure-Diastolic Value=53 Un its=mmHg 11/10/2011 8480-6 LOINC Blood Pressure-Systolic Value=89 Uni ts=mmHg 11/10/2011 8310-5 [facility] Body Temperature Value=98.7 Units=?? F 11/10/2011 8867-4 [facility] Heart rate Ndjet=140.0 Units=/min 11/10/2011 83369-4 [facility] O2 % dC Oximetry Value=97.0 Units= % 11/10/2011 2339-0 [facility] Blood Sugar Edydh=781.0 Units=mg/dL 11/04/2011 8302-2 [facility] Height Value=71.0 Units=Inches 10/27/2011
== END 2024-11-16 12:06 | disposition home or self-care (01) ==
LOC: HO.HUSH 11:26
PROVIDERS: PCP Family Medicine; Visit Provider Nurse Practitioner Family
DX: N39.0 Urinary tract infection, site not specified (principal); R33.9 Retention of urine, unspecified; Z13.9 Encounter for screening, unspecified
CPT/HCPCS: 99213; G2211

== ENCOUNTER → 2024-11-16 11:25 | Outpatient (BNVA) | payer MEDICARE, SELFPAY | PROVIDERS: PCP Family Medicine; Visit Provider Nurse Practitioner Family | DX: Z13.89 Encounter for screening for other disorder (principal) | CPT/HCPCS: 51798; 81003; 99212 ==

== ENCOUNTER 2024-11-16 12:09 | Outpatient (REF) | payer MEDICARE, SELFPAY ==
[2024-11-16 13:48] LABS: Prostate Specific Antigen < 0.10 ng/mL (<0.05-4.0)
--- OUTSIDE RECORDS SUMMARY | 2024-11-16 14:25 | XMS_ITS | Clinical Summary ---
Author Organization [facility] Address [address] [place] [address] [place] [address] Phone Care Team Providers Care Teletype Installer Name Role Phone Carmen Armenta DO Primary Care Provider [phone] Allergies Active Allergy Reactions Criticality Noted Date [...] 30 mg -start IVF -will place on car detailer to eval other etio but suspect orthostatic [...] himself. He does have a number to [employer] but notes he will not call them [...] Visit [facility] [address] [place] [phone] Gabi De La Cruz ARNP Acute nontraumatic [...] Only [facility] [address] [phone] Gabi De La Cruz ARNP [address] [phone] Acute nontraumatic kidney injury, not otherwise specified (HCC); Chronic kidney disease, stage 4 (severe) (HCC); Metabolic acidosis, not otherwise specified 01/12/2025 10:30 AM EDT Office Visit [facility] [address] [phone] Conrado Loera MD [address] [facility] [address] [place] [address] Health Maintenance Due Date Last [...] 9.0 8.7 - 10.7 mg/dL eGFR Non-Afr Ghanaian 21 Urine Specific [place] 1.025 Protein, UA 2+ mg/dL 08/24/2024 us Historical Provider LAB BLOOD ORDERABLES Bebe l Result from Last 3 Months Insurance [facility] Medicare Member Subscriber Plan / Payer (Ef fective 2023-Present) Name:Juan Whyte Relation to Subscriber:Self Name:Juan Whyte Payer ID:[id number] (NAIC) Type:Not on file Address: [place] [id number] Medicare Member Subscriber Plan / Payer (Ef fective 2023-Present) Name:Juan Whyte Relation to Subscriber:Self Name:Juan Whyte Payer ID:[id number] (NAIC) Type:Not on file Address: [place] [id number] Medicare Medicaid [place] Care Teams Teletype Installer Relationship Specialty Start Date End Date Carmen Armenta DO [address] [place] [address], [address] [place] [address] PCP - General 08/05/20
--- OUTSIDE RECORDS SUMMARY | 2024-11-16 14:25 | XMS_ITS | Clinical Summary ---
Author Organization [facility] Address [address] [place] [address] Phone Care Team Providers Care Briquette Molder Name Role Phone Physician, No Pcp Primary [...] failure superimp osed on chronic kidney disease ([facility] V24) 08/11/2024 Hydronephrosis 08/08/2024 Surgical History Surgery Date Site/Laterality Comments TOTAL COLECTOMY ILEOSTOMY SHOULDER SURGERY Bilateral CORONARY STENT PLACEMENT Medical History Medical History Date Comments Hypercholesteremia CKD (chronic kidney disease) stage 4, GFR 15-29 ml/min ([facility] V24, [facility] V28) CAD (coronary artery disease) Depression Anxiety Ulcerative colitis ([facility] V24, [facility] V28) Anemia Social History Tobacco Use Types [...] Relevant to Health Maintenance Insurance MEDICAID - [place] Advance Directives * No CPR/Do Not Intubate [...] currently active code status orders. Care Teams Briquette Molder Relationship Specialty Start Date End Date Physician, No Pcp PCP - General 08/08/24
--- OUTSIDE RECORDS SUMMARY | 2024-11-16 14:25 | XMS_ITS ---
Author Organization [facility] Care Team Providers Care Manager Rail Name Role Phone Yannick Vora Unavailable Unavailable Allergies and adverse reactions Code CodeSystem Substance Reaction Severity StartDate Concern Status Ativan, Lactose Unknown Unknown active Care Team Name Role Address Phone Organization Dates Yannick Vora Attending Physician [address], [address], [place] (Office): [phone] [facility] 10/22/2011 - 11/12/2011 Mental Status Section Date Assessment Total Score Description 10/29/2011 BIMS 15 cognitively int act PHQ-9 18 moderately carolyn re depression Reason for Referral No Reasons for Referral Entered Social History Social History Observation Description Start Date End Date Code Code System Current Smoking Status Tobacco smoking consumption unknown 553946451 SNOMED CT Sex Assigned At Male 1950 83532-8 [facility] Vital Signs Code Code System Vitals Name Values and Units Timing Information 73855-8 LOINC Weight Tjnqv=737.6 Units=Lbs 9279-1 LOINC Respiratory Rate Value=18.0 Units=/m in 11/10/2011 8462-4 LOINC Blood Pressure-Diastolic Value=53 Un its=mmHg 11/10/2011 8480-6 LOINC Blood Pressure-Systolic Value=89 Uni ts=mmHg 11/10/2011 8310-5 [facility] Body Temperature Value=98.7 Units=?? F 11/10/2011 8867-4 [facility] Heart rate Wnaev=883.0 Units=/min 11/10/2011 36590-4 [facility] O2 % dC Oximetry Value=97.0 Units= % 11/10/2011 2339-0 [facility] Blood Sugar Bpxyg=713.0 Units=mg/dL 11/04/2011 8302-2 [facility] Height Value=71.0 Units=Inches 10/27/2011
== END 2024-11-16 12:10 | disposition home or self-care (01) ==
LOC: HO.10HDL 12:09
PROVIDERS: Visit Provider Nurse Practitioner Family
DX: Z12.5 Encounter for screening for malignant neoplasm of prostate (principal); R33.9 Retention of urine, unspecified; N39.0 Urinary tract infection, site not specified
CPT/HCPCS: 36415; 51798; 81003; 84153; 99212

== ENCOUNTER 2025-02-20 11:44 | Outpatient (AMB) | payer MEDICARE, SELFPAY ==
--- OUTSIDE RECORDS SUMMARY | 2025-02-15 14:15 | XMS_ITS | Encounter Summary ---
Author Organization [facility] Address [address] [facility] [address] [place] [address] Phone Care Team Providers Care Tobacco Cloth Reclaimer Name Role Phone Carmen Franz DO Primary Care Provider [phone] Sumaya Aviles [employer] Unavailable [phone] Raffi Quinonez AUTOMOTIVE STARTER REPAIRER Unavailable [phone] Reason for Visit * Auth/Cert (Routine) Specialty Diagnoses / Procedures Referred By Pascual boone Referred To Contact Referral ID Status Reason Start Date Expiration Date Visits Re quested Visits Authorized [id number] 1 1 Encounter Details Date Type Department Care Team (Late st Contact Info) Description 02/15/2025 2:15 PM EDT Home [facility] Visit [facility] [address] [place] [phone] Mague Soto, OT [address] [place] [address] [email or web address] OT HOME VISIT Social History Tobacco Use Types Packs/Day Years Used Date Smoking Tobacco: Former Smokeless Tobacco: Never Alcohol Use Standard Drinks/Week Comments Never 0 (1 standard drink = 0.6 oz pur e alcohol) Home Health Assessment: Transportation Answer Date Recorded Lack of Transportation (Medical) No 01/02/2025 Lack of Transportation (Non-Medical) No 01/02/2025 Patient Unable or Declines to Respond No 01/02/2025 Education Answer Date Recorded Are you interested in more education? Not on candelaria e 11/20/2022 Are you concerned about learning? Not on file 11/20/2022 No 11/20/2022 No 11/20/2022 Food Answer Date Recorded Within the past 6 months we worried whether our food would run out before we got money to buy more. Unable to assess 025 Within the past 6 months the food we bought just didn't last and we didn't have enough money to get more. Unable to assess 01/28/2025 Residential Stability Answer Date Recor ded What is your housing situation today? Unable to assess 01/28/2025 How many times have you moved in the past 12 wed th? Unable to assess 01/28/2025 Paying for Meds Answer Date Recorded Do you have trouble paying for medicines? Unable to assess 01/28/2025 Paying Utility Bills Answer Date Record ed Do you have trouble paying y our heating or electricity bill? Unable to assess 01/28/2025 Transportation Answer Date Recorded Has the lack of transportati on kept you from medical appointments or from getting medications? Unable to assess 01/28/2025 Digital Access Answer Date Recorded No 01/28/2025 No 01/28/2025 Do you have reliable internet access at home? Un able to assess 01/28/2025 Do you have a device (e.g., phone, tablet, computer) with a working camera? Unable to assess 01/28/2025 Intimate Partner Violence Answer Date R ecorded Are you denied basic needs s uch as food, clothing, or medical care? No 01/27/2025 In the past 12 months have y ou been in a relationship with a person who hurts, threatens, or tries to control you? No 01/27/2025 Are you denied basic needs s uch as food, clothing, or medical care? No 01/27/2025 In the past 12 months have y ou been in a relationship with a person who hurts, threatens, or tries to control you? No 01/27/2025 Sex and Gender Information Value Date Recorded Sex Assigned at Male 12/24/2024 3:32 AM EDT Legal Sex Male 9:59 PM EDT Gender Identity Choose not to disclose 3:32 AM EDT Sexual Orientation Don't know 04/14/2024 11 :11 PM EDT documented as of this encounter Last Filed Vital Signs Vital Sign Reading Time Taken Comments Blood Pressure 124/80 02/15/2025 2:35 PM EDT Pulse 92 02/15/2025 2:35 PM EDT Temperature 36.4 C (97.6 F) 02/15/2025 2:35 PM EDT Respiratory Rate 16 02/15/2025 2:35 PM EDT Oxygen Saturation 97% 02/15/2025 2:35 PM EDT Inhaled Oxygen Concentration - - Weight - - Height - - Body Mass Index - - documented in this encounter Plan of Treatment Upcoming Encounters Date Type Department Care Team (Late st Contact Info) Description 02/20/2025 1:15 PM EDT Home Care Visit [facility] [address] [place] [phone] Mague Soto, OT [address] [place] [address] [email or web address] 02/21/2025 1:00 PM EDT Home Care Visit [facility] [address] [place] [phone] Tati Dennis, PT [address] [place] [address] [email or web address] 02/22/2025 12:30 PM EDT Home Care Visit [facility] [address] [place] [phone] Mague Soto, OT [address] [place] [address] [email or web address] 02/22/2025 1:00 PM EDT Home Care Visit [facility] [address] [place] [phone] Tati Dennis, PT [address] [place] [address] [email or web address] 02/26/2025 1:00 AM EDT Home Care Visit [facility] [address] [place] [phone] Tati Dennis, PT [address] [place] [address] 02/27/2025 1:45 AM EDT Home Care Visit [facility] [address] [place] [phone] Mague Soto, OT [address] [place] [address] 02/28/2025 12:45 AM EDT Home Care Visit [facility] [address] [place] [phone] Tati Dennis, PT [address] [place] [address] 03/01/2025 8:45 AM EDT Home Care Visit [facility] [address] [place] [phone] Mague Soto, OT [address] [place] [address] 03/01/2025 10:30 AM EDT Office Visit [facility] [address] [address] Carmen Franz, DO [address] [facility] [address] [place] [address] 05/23/2025 12:30 PM EDT Office Visit [facility] [address] [place] [address] [address], [address] [place] [address] Isauro Junior, DO [address] [facility] [address] [place] [address] documented as of this encounter Visit Diagnoses Not on filedocumented in this encounter Additional Health Concerns Assessment Noted Time PHQ-2 Depression Total Score: 2 12/23/19 24 1:28 PM EDT documented as of this encounter Home Health Visit - Care Plan Visit Details Visit Type -OT HOME VISIT Discipline -Occupational Therapy Problems Problem Description Start Date Status Goals Interve ntions HH - Telehealth/Virtua l Care Disciplines: All Active Home Health Disciplines 01/02/2025 Active 1 goal linked to scheduled/document ed intervention 1 goal intervention scheduled/document ed in this visit HH - Medication Management Disciplines: All Active Home Health Disciplines 01/02/2025 Active 1 goal linked to scheduled/document ed intervention 2 goal interventions scheduled/document ed in this visit HH - Focus of Care and Teaching Disciplines: All Active Home Health Disciplines w/RD 01/02/2025 Active 1 goal linked to scheduled/document ed intervention 1 goal intervention scheduled/document ed in this visit HH - Emergency Planning - Knowledge of Disciplines: All Active Home Health Disciplines 01/02/2025 Active 1 goal linked to scheduled/document ed intervention 2 goal interventions scheduled/document ed in this visit HH - Falls - Risk of Disciplines: All Active Home Health Disciplines 01/02/2025 Active - 1 problem intervention scheduled/document ed in this visit HH - Standard of Care Disciplines: All Active Home Health Disciplines 01/02/2025 Active 1 goal linked to scheduled/document ed intervention 3 goal interventions scheduled/document ed in this visit HH - Pain Disciplines: All Active Home Health Disciplines 01/02/2025 Active 1 goal linked to scheduled/document ed intervention 1 goal intervention scheduled/document ed in this visit HH - ADL/IADL Impairment and Therapeutic Interventions Disciplines: Occupational Therapy 01/04/2025 Active 1 goal linked to scheduled/document ed intervention 1 goal intervention scheduled/document ed in this visit Goals Goal Associated Problem Outcome Goal Met? Visit Notes HH - Telehealth visits along with in-person home visits will be utilized when appropriate to achieve optimal wellness and home safety Description: Telehealth visits along with in-person home visits will be utilized when appropriate to achieve optimal wellness and home safety related to teaching. HH - Telehealth/Virtual Care No HH - Safe medication management, avoid unnecessary harm related to medication errors and/or interactions HH - Medication Management No HH - Communication and collaboration to achieve patient goals HH - Focus of Care and Teaching No HH - Knowledge of options for managing care in the event of an emergency related situation. HH - Emergency Planning - Knowledge of No HH - Achieve care management for a safe to home/community discharge from homecare HH - Standard of Care No HH - Frequency of pain interfering with patient's activity or movement will improve with activity or movement by discharge. Description: Pain will be managed over the course of care. Patient's acceptable level of pain is 1 - pain that doesn't interfere. HH - Pain No HH - Promote higher level of independence with performance of ADLs/IADLs. Description: OT Goals: 1. Patient will demonstrate ind with bue hep in order to improve gross UE strength by 1/2 grade in 4 weeks. 2. Patient will tolerate 5-7 minutes of dynamic standing in order to improve endurance and ind with adl/iadl tasks in 4 weeks. 3. Patient will demonstrate mod i with all funcitonal transfers including tub in 4 weeks. 4. Patient will demonstrate ind with light meal prep/item retrieval with use of rollator in 4 weeks. HH - ADL/IADL Impairment and Therapeutic Interventions No Interventions Intervention Associated Problem/Goal Status Variance Visit Notes HH - Assess the patient's access/technology, monitoring device availability, cognitive, mental, physical ability, and willingness to effectively participate in telehealth care Problem:HH - Telehealth/Virtual Care Goal:HH - Telehealth visits along with in-person home visits will be utilized when appropriate to achieve optimal wellness and home safety Completed HH - I/E medication management: administration, purpose, dosages, preparation, setup, scheduling, side effects, food/drug interactions, and potential complications as indicated Description: Update patient's copy of medication list as needed. Problem:HH - Medication Management Goal:HH - Safe medication management, avoid unnecessary harm related to medication errors and/or interactions Completed HH - Complete medication review every visit and medication reconciliation as indicated. Pharmacy information: Description: medication reconcilliation completed Problem:HH - Medication Management Goal:HH - Safe medication management, avoid unnecessary harm related to medication errors and/or interactions Completed HH - Focus of care, teaching completed and plan for next visit Problem:HH - Focus of Care and Teaching Goal:HH - Communication and collaboration to achieve patient goals Completed Primary Clinical Focus this Visit & Instruction Provided: Patient participated in OT session focusing on funcitonal mobility/safety UE strengthening. Patient reports he has been having a tough time connecting with PCP office and they appointment they gave him he is unable to get a ride for due to being later in the day. OTR contacted PCP office to assist with scheduling and they will be contacting patient back as per discussion with Jackeline- she reported it was being scheduled more as an urgent matter and wants to loop in the nurse with Dr. Franz. Jackeline also reported that the initial visit they were working on for wednesday was a video call not an office visit. They will contact back, DENISE HEP- completed seated but unsupported. This posed very difficult for patient to maintain position without leaning too far back and resting on chair. chest press overhead press bicep curls shoulder flexion Patient easily fatigues Unable to sit unsupported for more than 2 minutes at a time- rest in between ther-ex. No falls since last reported to PT Tati. no med changes Instruction Provided to: patient Response to Instruction/Teaching : Is partially able to teach back topics as evidenced by demo and verbal Plan for Next Visit Specific Focus & Education Needed: fu with adl/iadl mgt/safety New Orders: NA Updated Discharge Plan: continue POC no changes HH - I/E management of care in an urgent or emergency (ER) situation: When to call your Home Care Team/911, ER plans, supplies, evacuation, when to contact local ER officials and how to stay informed Problem:HH - Emergency Planning - Knowledge of Goal:HH - Knowledge of options for managing care in the event of an emergency related situation. Completed - Emergency planning assessment: the emergency plan, supplies needed, emergency contact numbers and an evacuation plan were reviewed Description: Patient is/are knowledgeable of emergency plans. Problem:HH - Emergency Planning - Knowledge of Goal:HH - Knowledge of options for managing care in the event of an emergency related situation. Completed HH - I/E fall prevention measures Problem:HH - Falls - Risk of Completed HH - Assess vital signs, pulse oximetry, pain, and as indicated, orthostatic vital signs Description: use agency-specific parameters Problem:HH - Standard of Care Goal:HH - Achieve care management for a safe to home/community discharge from homecare Completed HH - Assess skin integrity Problem:HH - Standard of Care Goal:HH - Achieve care management for a safe to home/community discharge from homecare Completed HH - I/E discharge plan Problem:HH - Standard of Care Goal:HH - Achieve care management for a safe to home/community discharge from homecare Completed HH - Assess pain Problem:HH - Pain Goal:HH - Frequency of pain interfering with patient's activity or movement will improve with activity or movement by discharge. Completed HH - I/E ADL/IADL performance, safety, and management Description: As indicated: ADL/IADL training, functional mobility training, adaptive equipment: recommendations and use, therapeutic exercise and home exercise program, safety, energy conservation/pacing, cognitive training, and visual/perceptual strategies. Problem:HH - ADL/IADL Impairment and Therapeutic Interventions Goal:HH - Promote higher level of independence with performance of ADLs/IADLs. Completed documented in this encounter Care Teams Tobacco Cloth Reclaimer Relationship Specialty Start Date End Date Carmen Franz DO [address] [place] [address], [address] [place] [address] [email or web address] PCP - General Family Medicine 08/12/20 Sumaya Aviles, SUPERVISOR [employer]SE[address] [address] [email or web address] Work 09/04/20 Raffi Quinonez NP [address] [place] [address] Nurse Practitioner 12/21/23 documented as of this encounter Additional Source Comments The information contained in this document represents components of the legal health record. It is not the complete legal health record.[facility]
--- NOTE | 2025-02-20 11:50 | MHC.OFFVIS ---
Intake Visit Reasons: 3m/PSA/PVR(set) Intake Note: Patient is present for 3M/PSA/PVR Urology Medication:JOSE,IN C,TERAZOSIN,METHENAMINE HIPPURATE,FINASTERIDE Antibiotic Allergy:CIPROFLOXACIN Blood Thinner:ASPIRIN Credit Officer Required: No Allergies lactose Allergy (Unknown, Verified 02/20/25 13:01) Unknown Ciprofloxacin HCl Allergy (Unknown, Uncoded 02/20/25 13:01) Unknown Medication List - Last Reconciled 02/20/25 by SIMON Mcfarland ascorbic acid (vitamin C) 1 g PO DAILY 90 days aspirin 81 mg PO DAILY atorvastatin 40 mg PO DAILY bupropion HCl XL 300 mg PO DAILY cholecalciferol (vitamin D3) 50 mcg PO DAILY cyanocobalamin (vitamin B-12) 1,000 mcg PO DAILY diaper,brief,adult,disposable (Select Disposable Briefs) As directed; 4 times daily duloxetine 60 mg PO DAILY finasteride 5 mg PO DAILY 30 days gabapentin mg PO isosorbide mononitrate ER 30 mg PO DAILY loperamide 2 mg PO BID PRN lorazepam 1 mg PO BID magnesium oxide 400 mg PO DAILY methenamine hippurate 1 g PO DAILY 90 days omeprazole 20 mg PO DAILY sodium bicarbonate 650 mg PO BID terazosin 5 mg PO BEDTIME 30 days trazodone 200 mg PO BEDTIME HPI Comments Details: Juan Calhoun is a 74-year-old male patient of Dr. Franz. He has a PMH of anxiety, depression, nephrolithiasis, neurogenic bladder, obstructive sleep apnea, TBI, ulcerative colitis, bowel resection status post ileostomy. He presents to the office today for follow-up of his incomplete bladder emptying/urinary retention and incontinence. In discussion with the patient today he reports compliance with terazosin, finasteride, methenamine, and vitamin-C as prescribed. He continues to experience episodes of incontinence. He also discusses having seeked emergency room care services at [facility] as well as [facility] for ongoing issues he has been having with ambulation. Unable to obtain urine for urinalysis as patient unable to void however PVR 62 mL. Patient with a previous history of in office cystoscopy with Dr. Starr 02/15 that noted open bladder neck. Patient with a previous history of urinary retention requiring catheter placement. He also has a previous history of [facility]IC for incomplete bladder emptying/urinary retention. When asked he currently denies any UTI like symptoms. He denies hematuria, dysuria, changes to urinary stream, flank pain, fever, and or chills. We discussed significant decrease in postvoid residuals. He otherwise offers no other issues or concerns at this time. PSA: 11/17 <0.10 Review of Systems Const Reports as per HPI Eyes Reports no additional complaints ENT Reports no additional complaints Card Reports as per HPI Resp Reports no additional complaints GI Reports as per HPI Reports as per HPI Musc Reports no additional complaints Neuro Reports as per HPI Psych Reports as per HPI Endo Reports no additional complaints Physical Exam Const General: cooperative, comfortable, no acute distress, well developed, alert and awake Nutritional Appearance: overweight Orientation/consciousness: oriented to person Limitations: ambulation with walker HEENT Head: Yes normal to inspection, Yes normocephalic and Yes atraumatic Ears: hearing grossly normal bilaterally Eyes General: appearance normal, both eyes and all related structures Neck Neck: Yes normal visual inspection and Yes trachea midline Chest Chest palpation & inspection: normal inspection of the chest Resp Effort & Inspection: normal respiratory effort and able to speak in complete sentences Cardio Rate: regular rate GI Inspection: Yes normal to inspection General: Yes no CVA tenderness Back/Spine/Pelvis Back: no CVA tenderness Skin General skin exam: no rashes or lesions noted Neuro General: oriented to person Extrem General: Yes normal to inspection Psych Appearance: grossly normal Speech and movement: Normal speech and movement present and Clear speech present Affect: normal affect Attitude: cooperative Thought content: Normal thought content present Insight: Fair insight present (Psych) Judgement: Fair judgement present (Psych) Office Procedures Post Void Residual Post Residual Void Post Void Residual (PVR): 63 [id number] Void Residual by ultrasound Assessment & Plan Assessment & Plan (1) Urinary retention: Code(s): R33.9 - Retention of urine, unspecified Category: Medical (2) Incomplete bladder emptying: Code(s): R33.9 - Retention of urine, unspecified Category: Medical (3) Urinary tract infection: Code(s): N39.0 - Urinary tract infection, site not specified Category: Medical (4) Incontinence: Code(s): R32 - Unspecified urinary incontinence Category: Medical Plan Unable to obtain urine for urinalysis as patient unable to void however PVR 62 mL. Recent PSA results reviewed with the patient today; as noted above. We did discussed further treatment options of incontinence in risks and benefits of these treatment options. All questions were answered. Will continue with surveillance monitoring at this time. Continue methenamine, vitamin-C, finasteride, and terazosin as prescribed. Follow-up in 3 months with PVR; or sooner with any issues, concerns, and or questions. Orders: Orders AMB Urinalysis Automated Today Z13.9 - Encounter for screening, unspecified AMB Post Void Residual by ultrasound Today R33.9 - Retention of urine, unspecified Patient Instructions: The patient had an opportunity to ask questions regarding the treatment plan. All questions were answered. Physical exam, labs, and imaging were discussed and reviewed in detail. As well as risks, benefits, and discussion of treatment choices. No major barriers to understanding were identified. The patient expressed understanding and agreement with the above treatment plan. The patient was made aware they should contact our office by phone for worsening of their current condition, the appearance of new symptoms, or with any questions or concerns. Compliance is encouraged with any medications and follow up testing that is ordered. It is a privilege to be allowed the opportunity to participate in? your urological care.? Again, if you have any questions or concerns If you have any questions or concerns please do not hesitate to contact me. The office is [phone]. This note is constructed using voice recognition software. While every effort has been made to ensure accuracy service delivery analyst errors may have been included. Yours sincerely, SIMON Mcfarland Coding Level of Care Code Est Pt Level 3 (19417) Complex EM visit Add On G2211 Diagnoses Urinary retention R33.9 Incomplete bladder emptying R33.9 Urinary tract infection N39.0 Incontinence R32 CPT Codes Post Residual Void - PVR CPT Code: 85186-Clzt Void Residual by ultrasound ([id number])
--- OUTSIDE RECORDS SUMMARY | 2025-02-20 12:49 | XMS_ITS | Clinical Summary ---
Author Organization [facility] Address [address] [place] [address] Phone Care Team Providers Care Enrollment Management Director Name Role Phone Physician, No Pcp [...] failure superimp osed on chronic kidney disease ([facility] V24) 08/11/2024 Hydronephrosis 08/08/2024 Surgical History Surgery Date Site/Laterality Comments TOTAL COLECTOMY ILEOSTOMY SHOULDER SURGERY Bilateral CORONARY STENT PLACEMENT Medical History Medical History Date Comments Hypercholesteremia CKD (chronic kidney disease) stage 4, GFR 15-29 ml/min ([facility] V24, [facility] V28) CAD (coronary artery disease) Depression Anxiety Ulcerative colitis ([facility] V24, [facility] V28) Anemia Social History Tobacco Use [...] 96 08/11/2024 3:47 PM EST Temperature 37 C (98.6 F) 08/11/2024 3:47 PM EST Respiratory Rate 14 [...] 2024 06/12/2022, 12/10/2021, 08/20/2021, Additional history exists Depression Screening 07/26/2024 Cholesterol Screening (Lipid Panel) 08/08/2024 Hepatitis C Screening 08/08/2024 Social Influencers of Health Screening 08/08/2024 Influenza Vaccine (#1) 2025 , 04/30/2023, 08/27/2022, Additional history exists Falls Risk Assessment 08/11/2025 08/11/2024 Hypertension/CHF/CAD Annual BMP Blood Test 08/24/2025 08/24/2024, 08/11/2024, 08/10/2024, Additional history exists DTaP,Tdap,and Td Vaccines (4 - Td or Tdap) 08/27/2032 08/27/2022, 08/21/2011, 03/31/1995 Pneumococcal Vaccine: 50+ Years Completed 08/29/2019, 05/24/2018, 01/09/2011 Colorectal Cancer Screening: Stool Based Tests (FOBT/FIT) Discontinued 11/18/2023 HIB Vaccines Aged Out No longer eligi [...] or Most Recently Relevant to Health Maintenance Results * (ABNORMAL) Basic metabolic panel (08/11/2024 7:26 AM EST) Pathologist [facility] Sodium 141 133 - 145 mmol/L LAB CHEMISTRY METHOD 08/11/2024 8:43 AM [facility] Potassium 3.8 3.5 - 5.5 mmol/L LAB CHEMISTRY METHOD 08/11/2024 8:43 AM [facility] Chloride 116(H) 96 - 110 mmol/L LAB CHEMISTRY METHOD 08/11/2024 8:43 AM [facility] CO2 20(L) 21 - 32 mmol/L LAB CHEMISTRY METHOD 08/11/2024 8:43 AM [facility] Anion Gap 5 3 - 11 LAB CHEMISTRY METHOD 08/11/2024 8:43 AM [facility] Glucose 100 70 - 100 mg/dL LAB CHEMISTRY METHOD 08/11/2024 8:43 AM [facility] BUN 19 5 - 25 mg/dL LAB CHEMISTRY METHOD 08/11/2024 8:43 AM [facility] Creatinine 3.16(H) 0.70 - 1.30 mg/dL LAB CHEMISTRY METHOD 08/11/2024 8:43 AM [facility] eGFR 20(L) >=60 mL/min/1. 73m2 LAB CHEMISTRY METHOD 08/11/2024 8:43 AM [facility] Comment:Calculation based on the Chronic Kidney Disease Epidemiology Collaboration (CKD-EPI) equation refit without adjustment for race. BUN/Creatinine Ratio 6.0 LAB CHEMISTRY METHOD 08/11/2024 8:43 AM EST [facility] Calcium 8.6 8.5 - 10.5 mg/dL LAB CHEMISTRY METHOD 08/11/2024 8:43 AM EST [facility] Blood Venous blood specimen / Unknown Venipuncture / Unknown 08/11/2024 7:26 AM EST 08/11/2024 7:38 AM EST us En Butler MD LAB BLOOD ORDERABLES Final Re sult [facility] [address] [place] [address], from Last 3 Months or Most Recently Relevant to Health Maintenance Insurance MEDICAID - [place] Advance Directives * No CPR/Do Not Intubate [...] currently active code status orders. Care Teams Enrollment Management Director Relationship Specialty Start Date End Date Physician, No Pcp PCP - General 08/08/24
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
== END 2025-02-20 13:00 | disposition home or self-care (01) ==
LOC: HO.HUSH 11:45
PROVIDERS: PCP Family Medicine; Visit Provider Nurse Practitioner Family
DX: R33.9 Retention of urine, unspecified (principal); N39.0 Urinary tract infection, site not specified; R32 Unspecified urinary incontinence
CPT/HCPCS: 99213; G2211

== ENCOUNTER → 2025-02-20 11:44 | Outpatient (BNVA) | payer MEDICARE, SELFPAY | PROVIDERS: PCP Family Medicine; Visit Provider Nurse Practitioner Family | DX: R33.9 Retention of urine, unspecified (principal); N39.0 Urinary tract infection, site not specified; R32 Unspecified urinary incontinence; Z13.9 Encounter for screening, unspecified; Z87.448 Personal history of other diseases of urinary system; Z98.890 Other specified postprocedural states | CPT/HCPCS: 51798; 99212 ==